=== PATIENT | female | born 1960 | race African-American/Black ===

== ENCOUNTER 2018-02-26 11:15 | Emergency (ER) | payer OTHER ==
--- OUTSIDE RECORDS SUMMARY | 2018-02-26 11:18 | XMS REPORT | Clinical Summary ---
:1960 Author Organization [facility] Address [address] [place] [address] Care Team Providers Name Role Phone Asked, No Pcp Primary Care Provider Unavailable Allergies Active Allergy Reactions Severity Noted Date Comments Penicillins Other (See Comments) Medium 10/14/2016 UTI and itching Current Medications Prescription Sig. Disp. Refills Start Date End Date Status CREON 24,000-76,000 Take by mouth 3 1 08/23/2016 Active -120,000 unit (three) times a capsule,delayed day. release(DR/EC) capsule lisinopril-hydrochlorot Take 1 tablet by 1 08/08/2016 Active hiazide mouth once daily. (PRINZIDE,ZESTORETIC) 10-12.5 mg per tablet LACTOBACILLUS Take by mouth. Active ACIDOPHILUS (PROBIOTIC ORAL) ibuprofen Take 1 tablet 30 tablet 0 01/30/2018 Active (ADVIL,MOTRIN) 600 MG (600 mg total) by 8 tablet mouth every 6 (six) hours as needed for mild pain for up to 30 days. methylPREDNISolone Take 1 tablet (4 21 tablet 0 02/01/2018 (MEDROL DOSEPAK) 4 mg mg total) by 8 tabletIndications: mouth See Admin Right wrist pain Instructions for 5 days. 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 Office Visit Orthopedic Surgery Miryam Wayne Cubital tunnel syndrome MD Ailin on right (Primary Dx) 02/01/2018 Office Visit Orthopedic Surgery Miryam Wayne Right wrist pain MD Ailin (Primary Dx) 01/30/2018 Emergency Emergency Medicine Sarah Garcia-Baldo Radiculopathy, unspecified spinal region (Primary Dx); MD Baldo Wrist pain, acute, right; Ulnar nerve entrapment at wrist, right after 02/25/2017 Family History Medical History Relation Name Comments No Known Problems Brother No Known Problems Father No Known Problems Maternal Aunt No Known Problems Maternal Grandfather No Known Problems Maternal Grandmother No Known Problems Maternal Uncle No Known Problems Mother No Known Problems Paternal Aunt No Known Problems Paternal Grandfather No Known Problems Paternal Grandmother No Known Problems Paternal Uncle No Known Problems Sister Relation Name Status Comments Brother Father Maternal Aunt Maternal Grandfather Maternal Grandmother Maternal Uncle Mother Paternal Aunt Paternal Grandfather Paternal Grandmother Paternal Uncle Sister Social History Tobacco Use Types Packs/Day Years Used Date Never Smoker Smokeless Tobacco: Never Used Alcohol Use Drinks/Week oz/Week Comments No Sex Assigned at Date Recorded Not on file Last Filed Vital Signs Vital Sign Reading Time Taken Blood Pressure 165/96 01/30/2018 1:38 PM CDT Pulse 61 01/30/2018 1:38 PM CDT Temperature 36.7 C (98.1 F) 01/30/2018 1:38 PM CDT Respiratory Rate 16 01/30/2018 1:38 PM CDT Oxygen Saturation 98% 01/30/2018 1:38 PM CDT Inhaled Oxygen Concentration - - Weight - - Height 154.9 cm (5' 1") 01/30/2018 1:38 PM CDT Body Mass Index - - Plan of Treatment Date Type Specialty Care Team Description 03/07/2018 Office Visit Orthopedic Surgery Miryam Wayne MD [address] [facility] [address] [place] [id number] Health Maintenance Due Date Last Done Comments CERVICAL CANCER SCREENING 11/30/1979 BREAST CANCER SCREENING 2008 COLON CANCER SCREENING 2008 SHINGRIX VACCINE (#1) 2008 INFLUENZA VACCINE 01/24/2018 Procedures Procedure Name Priority Date/Time Associated Comments Diagnosis AR INJECT CARPAL Routine 02/21/2018 2:45 Right carpal tunnel Results for this TUNNEL PM CDT syndrome procedure are in the results section. XR HAND 3+ VW RIGHT STAT 01/30/2018 3:39 Results for this PM CDT procedure are in the results section. SPLINT APPLICATION Routine 01/30/2018 2:25 Results for this PM CDT procedure are in the results section. after 02/25/2017 Results Hand/Upper Extremity Injection/Arthrocentesis (02/21/2018 2:45 PM) Narrative Performed At Miryam Wayne MD 02/23/20181:41 PM Hand/Upper Extremity Injection/Arthrocentesis Date/Time: 02/23/2018 1:38 PM Consent given by: patient Site marked: site marked Timeout: Immediately prior to procedure a time out was called to verify the correct patient, procedure, equipment, support services coordinator and site/side marked as required Supporting Documentation Indications: pain, therapeutic and diagnostic Procedure Details Condition: carpal tunnel syndrome Site: R carpal tunnel Right side: Needle size: 25 G Right carpal tunnel medications administered: 0.5 mL lidocaine 10 mg/mL (1 %); 1 mL triamcinolone acetonide 40 mg/mL Patient tolerance: patient tolerated the procedure well with no immediate complications Platelet Rich Plasma Used: no PRP Used Fluoroscopic Needle Guidance Used: no fluoroscopic needle guidance XR Hand 3+ Vw Right (01/30/2018 3:39 PM) Narrative Performed At EXAMINATION:XR HAND 3VW RIGHT [facility] CLINICAL HISTORY:hand pain ulnar nerve tingling COMPARISON:None. IMPRESSION: 1.3 view evaluation of the right hand demonstrates no evidence to suggest an acute fracture. Alignment is normal and articulation is intact. [facility]-[id number] Procedure Note Hm Interface, Radiology Results Incoming - 01/30/2018 3:51 PM CDT EXAMINATION: XR HAND 3 VW RIGHT CLINICAL HISTORY: hand pain ulnar nerve tingling COMPARISON: None. IMPRESSION: 1. 3 view evaluation of the right hand demonstrates no evidence to suggest an acute fracture. Alignment is normal and articulation is intact. [facility]-[id number] Performing Organization Address City/State/Zipcode Phone Number [facility] [address] [place] [address] SPLINT APPLICATION (01/30/2018 2:25 PM) Narrative Performed At [facility] Baldo Garcia MD 02/05/2018 11:42 PM Splint Application Performed by: ARLET GARCIAH BALDO Authorized by: [facility] Consent: Consent obtained:Verbal Consent given by:Patient Risks discussed:Discoloration, pain and swelling Pre-procedure details: Sensation:Unchanged Procedure details: Location:Wrist Wrist:R wrist Cast type:Short arm Splint type:Wrist after 02/25/2017 Insurance Payer Benefit Plan / Group Subscriber ID Type Phone Address BCBS BCBS CHOICE PPO/FEDERAL EMPL PPO xxxxxxxxxxxxxxx PPO Home: [facility] [phone] [place] [phone]
--- OUTSIDE RECORDS SUMMARY | 2018-02-26 11:18 | XMS REPORT | Clinical Summary ---
:1960 Author Organization [facility] Address [address] [place] [address] Phone Care Team Providers Name Role Phone Unavailable Primary Care Provider Unavailable Allergies No Known Allergies Current Medications Prescription Sig. Disp. Refills Start Date End Date Status lisinopril Take 10 mg Active (PRINIVIL,ZESTRIL) 10 MG by mouth tablet daily. carboxymethylcellulose Place 1 drop 1 Bottle 0 11/08/2017 Active (REFRESH PLUS) 0.5 % Dpet into both ophthalmic solution eyes 3 (three) times daily as needed. acetaminophen (TYLENOL) 500 Take 1 30 tablet 0 11/08/2017 MG tablet tablet (500 8 mg total) by mouth every 6 (six) hours as needed for Pain for up to 10 days. Active Problems Not on file Encounters Date Type Specialty Care Team Description 11/08/2017 Emergency Emergency Medicine Braden Roque, Sensation of foreign body MD in eye (Primary Dx);Redness of eye, right;Essential hypertension after 02/25/2017 Social History Tobacco Use Types Packs/Day Years Used Date Never Smoker Smokeless Tobacco: Never Used Sex Assigned at Date Recorded Not on file Last Filed Vital Signs Vital Sign Reading Time Taken Blood Pressure 168/105 11/08/2017 9:32 PM CDT Pulse 81 11/08/2017 9:32 PM CDT Temperature 37.3 C (99.2 F) 11/08/2017 9:32 PM CDT Respiratory Rate 18 11/08/2017 9:32 PM CDT Oxygen Saturation 97% 11/08/2017 9:32 PM CDT Inhaled Oxygen Concentration - - Weight 73 kg (161 lb) 11/08/2017 9:32 PM CDT Height 160 cm (5' 2.99") 11/08/2017 9:32 PM CDT Body Mass Index 28.53 11/08/2017 9:32 PM CDT Plan of Treatment Not on file Results Not on fileafter 02/25/2017
[2018-02-26] MEDS ORDERED: ONDANSETRON 4 MG/2 ML VIAL ONE ×2 (12:25→15:25)
[2018-02-26] MEDS ORDERED: FAMOTIDINE 20 MG/2 ML VIAL IV ONE (12:26)
[2018-02-26] MEDS ORDERED: NA CHLORIDE 0.9% 1,000 ML ONE (12:26)
[2018-02-26 12:33] LABS: Absolute Lymphocytes (CBC) 5.3 K/uL (0.7-4.9); Absolute Monocytes 0.8 K/uL (0.1-1.3); Absolute Neutrophil 8.9 K/uL (1.8-8.0); Basophils % 0.3 % (0-1.3); Eosinophils % 0.9 % (0-4.4); Hematocrit 42.7 % (36.0-45.0); MCH 29.6 pg (27.0-35.0); MCV 89.9 fL (80-100); MPV 8.5 fL (7.6-11.3); Monocytes % 5.4 % (3.3-12.3); RBC Red Blood Cell Count 4.75 M/uL (3.86-4.86)
[2018-02-26 12:33] LABS: Protime INR 1.04
[2018-02-26 12:43] LABS: ALT/SGPT 20 U/L (12-78); AST/SGOT 13 U/L (15-37); Albumin 3.9 g/dL (3.4-5.0); Alkaline Phosphatase 118 U/L (45-117); BUN Blood Urea Nitrogen 18 mg/dL (7-18); Bicarbonate 32 mmol/L (21-32); Bilirubin Direct 0.1 mg/dL (0-0.2); Bilirubin Total 0.6 mg/dL (0.2-1.0); CKMB Creatine Kinase MB 1.2 ng/mL (0.3-3.6); Creatine Phosphokinase 80 U/L (26-192); Glucose Level 116 mg/dL (74-106); Magnesium 2.5 mg/dL (1.8-2.4); NT PRO-BNP 14 pg/mL (<125); Potassium 3.2 mmol/L (3.5-5.1); Protein, Total 8.2 g/dL (6.4-8.2); Sodium Level 140 mmol/L (136-145); Troponin (Emerg Dept Use Only) < 0.02 ng/mL (0.0-0.045)
[2018-02-26 12:48] LABS: Urine Blood 2+ (NEG); Urine Glucose NEGATIVE (NEG); Urine Protein 1+ (NEG); Urine Specific Gravity >1.030 (1.005-1.030); Urine pH 5.5 (5.0-7.0)
--- NOTE | 2018-02-26 13:19 | RAD REPORT ---
EXAM DESCRIPTION: Michelle Single View02/26/2018 12:46 pm CLINICAL HISTORY: COUGH COMPARISON: No comparisons FINDINGS: The lungs appear clear of acute infiltrate. The heart is normal size Mild elevation right hemidiaphragm is seen.
--- NOTE | 2018-02-26 14:16 | RAD REPORT ---
EXAM DESCRIPTION: CT - Chest For Pe Angio - 02/26/2018 1:50 pm CLINICAL HISTORY: CHEST PAIN COMPARISON: None. TECHNIQUE: Dynamically enhanced axial 3 mm thick images of the chest were obtained during administra tion of <100> mL Isovue 370 IV contrast. Coronal and oblique reconstruction images were generated and reviewed. Exam utilizes a protocol for optimal evaluation of pulmonary arterial tree. Maximum intensity projections 3D imaging was utilized All CT scans are performed using dose optimization technique as appropriate and may include automated exposure control or mA/KV adjustment according to patient size. FINDINGS: A pulmonary embolus is not seen. A thoracic aortic aneurysm is not noted. A minimal coarctation of the proximal descending thoracic ao rta is noted. The heart is mildly enlarged A pleural effusion is not seen. A pericardial effusion is not seen. A lung consolidation is not present. The right hemidiaphragm is elevated. Mild right lower lobe atele ctasis is present Thyroid gland is enlarged containing bilateral nodules which narrow the trachea. IMPRESSION: Negative for a pulmonary embolism. Minimal coarctation the proximal descending aorta Multiple, bilateral thyroid nodules likely representing a multinodular goiter. Followup ultrasound in 1 year is recommended for re-evaluation
--- NOTE | 2018-02-26 14:22 | RAD REPORT ---
EXAM DESCRIPTION: CT - Abdomen Pelvis W Contrast - 02/26/2018 1:52 pm CLINICAL HISTORY: ABD PAIN COMPARISON: none TECHNIQUE: Computed axial tomography of the abdomen pelvis was obtained. 100 cc Isovue-300 was admin istered intravenously. Oral contrast was not requested which limits evaluation of bowel. All CT scans are performed using dose optimization technique as appropriate and may include automated exposure control or mA/KV adjustment according to patient size. FINDINGS: The liver, spleen, pancreas, adrenal and kidneys appear unremarkable. There is no evidence of diverticulitis. The appendix is normal The rectum is mildly distended with stool. A 25 millimeter left ovarian cyst is present. Lobulated masses extend from the uterus largest measuri ng 34 millimeters Mild diastases of the rectus abdominis muscles is present IMPRESSION: The rectum is mildly distended with stool 25 millimeter left ovarian cyst likely is benign Lobulated mass is abutting the uterus probably representing subserosal fibroids. Follow-up ultrasound in couple of months is recommended to assess stability of the suspected ovarian cysts and these prob able fibroids
--- NOTE | 2018-02-26 14:41 | RAD REPORT ---
EXAM DESCRIPTION: CT - Head Brain Wo Cont - 02/26/2018 2:18 pm CLINICAL HISTORY: DIZZINESS< COMPARISON: None TECHNIQUE: Computed axial tomography of the head was obtained. IV contrast was administered during C T chest and abdomen earlier on the same date. All CT scans are performed using dose optimization technique as appropriate and may include automated exposure control or mA/KV adjustment according to patient size. FINDINGS: Detection of a bleed is somewhat limited due to the administration of IV contrast. It blee d however is not seen. The ventricles are normal in caliber. No extra-axial fluid collection is noted. Fluid within the sinuses/ mastoids is not seen. IMPRESSION: No acute intracranial abnormality is seen. If patient's symptoms persist MRI of the bra in would be recommended.
--- NOTE | 2018-02-26 15:02 | ER ---
Nurse's Notes [facility] Name: Tarsha Coy Age: 57 yrs Sex: Female : 1960 Arrival Date: 02/26/2018 Time: 11:16 Bed 20 Private MD: None, None Diagnosis: Dizziness and giddiness;Cystitis;Hypokalemia;Nausea and vomiting;Elevated white blood cell count;Nontoxic diffuse goiter;Leiomyoma of uterus Presentation: 02/26 11:30 Presenting complaint: Patient states: i feel dizzy that started yesterday, denies fall; hj reports nausea; reports headache, denies fever and chills;. Transition of care: patient was not received from another setting of care. Onset of symptoms was February 26, 2018. Risk Assessment: Do you want to hurt yourself or someone else? Patient reports no desire to harm self or others. Initial Sepsis Screen: Does the patient meet any 2 criteria? No. Patient's initial sepsis screen is negative. Does the patient have a suspected source of infection? No. Patient's initial sepsis screen is negative. Care prior to arrival: None. 11:30 Method Of Arrival: Ambulatory 11:30 Acuity: IKE 3 Triage Assessment: 11:32 General: Appears in no apparent distress. uncomfortable, Behavior is calm, cooperative, hj appropriate for age. Pain: Complains of pain in head. GI: Reports nausea. Historical: - Allergies: 11:32 No Known Allergies; hj - Home Meds: 11:32 lisinopril-hydrochlorothiazide 10-12.5 mg oral tab 1 tab once daily [Active]; - PMHx: 11:32 Hypertension; carpal tunnel; - PSHx: 11:32 Knee surgery; hj - Immunization history:: Adult Immunizations unknown. - Social history:: Smoking status: Patient/guardian denies using tobacco, Patient/guardian denies using alcohol. - Ebola Screening: : Patient negative for fever greater than or equal to 101.5 degrees Fahrenheit, and additional compatible Ebola Virus Disease symptoms Patient denies exposure to infectious person Patient denies travel to an Ebola-affected area in the 21 days before illness onset. - Family history:: not pertinent. Screenin:33 Abuse screen: Denies threats or abuse. Denies injuries from another. Nutritional hj screening: No deficits noted. Tuberculosis screening: No symptoms or risk factors identified. Fall Risk None identified. Assessment: 11:33 GI: Abdomen is non-distended. hj 12:00 General: Appears in no apparent distress. Behavior is calm, cooperative. Pain: iw Complains of pain in left upper quadrant and right upper quadrant and epigastric area. Neuro: Level of Consciousness is awake, alert, obeys commands, Oriented to person, place, time, situation, Reports dizziness. Cardiovascular: Capillary refill < 3 seconds in bilateral fingers Patient's skin is warm and dry. Respiratory: Respiratory effort is even, unlabored, Respiratory pattern is regular, symmetrical. GI: Reports nausea. Derm: Skin is intact, is healthy with good turgor. Musculoskeletal: Range of motion: intact in all extremities. 12:40 Reassessment: Patient appears in no apparent distress at this time. pt reports iw dizziness and mild abdominal pain. Vital Signs: 11:33 BP 119 / 76; Pulse 72; Resp 18; Temp 97.5(TE); Pulse Ox 98% on R/A; Weight 72.57 kg; hj Height 5 ft. 1 in. (154.94 cm); Pain 7/10; 12:40 BP 139 / 87; Pulse 84; Resp 16; Pulse Ox 97% on R/A; iw 11:33 Body Mass Index 30.23 (72.57 kg, 154.94 cm) ED Course: 11:16 Patient arrived in ED. sb2 11:17 None, None is Private Physician. sb2 11:31 Triage completed. hj 11:33 Arm band placed on left wrist. hj 11:33 Patient has correct armband on for positive identification. Bed in low position. Call light in reach. Side rails up X 1. 11:38 Lora Parra, RN is Primary Nurse. iw 11:43 Gucci Garg MD is Attending Physician. suhail 12:26 Initial lab(s) drawn, by pa, sent to lab. Urine collected: clean catch specimen, clear, 5 EKG done, by ED staff, reviewed by Gucci Garg MD. Inserted saline lock: 20 gauge in right antecubital area, using aseptic technique. Blood collected. 12:27 Lipase Sent. 5 12:27 Basic Metabolic Panel Sent. 5 12:27 CBC with Diff Sent. 5 12:27 Ckmb Sent. mh5 12:27 CPK Sent. mh5 12:28 LFT's Sent. mh5 12:28 Magnesium Sent. mh5 12:28 NT PRO-BNP Sent. mh5 12:28 PT-INR Sent. mh5 12:28 Ptt, Activated Sent. mh5 12:28 Troponin (emerg Dept Use Only) Sent. mh5 12:29 Lipase Sent. mh5 12:47 XRAY Chest (1 view) In Process Unspecified. EDMS 12:47 X-ray completed. Portable x-ray completed in exam room. Patient tolerated procedure la2 well. 13:30 Notified ED physician of a critical lab result(s). elevated D Dimer. 13:47 CT completed. Patient tolerated procedure well. Patient moved to CT via stretcher. Patient moved back from CT. 13:51 CT Chest For PE Angio In Process Unspecified. EDMS 13:51 CT Abd/Pelvis - W/Contrast: iv only, no oral In Process Unspecified. EDMS 14:01 Urine Culture Sent. mh5 14:19 CT Head Brain wo Cont In Process Unspecified. EDMS Administered Medications: 12:26 Drug: NS 0.9% 1000 ml Route: IV; Rate: 1 bolus; Site: right antecubital; iw 12:26 Drug: Pepcid 20 mg Route: IVP; Site: right antecubital; iw 12:45 Follow up: Response: No adverse reaction iw 12:27 Drug: Zofran 4 mg Route: IVP; Site: right antecubital; iw 12:45 Follow up: Response: No adverse reaction iw 15:18 Drug: Rocephin - (cefTRIAXone) 1 grams Route: IVPB; Infused Over: 30 mins; Site: right iw antecubital; 15:25 Follow up: IV Status: Completed infusion iw 15:20 Drug: Potassium Effervescent Tablet 25 mEq Route: PO; iw 15:30 Follow up: Response: No adverse reaction iw 15:22 Drug: Zofran 4 mg Route: IVP; Site: right antecubital; iw 15:35 Follow up: Response: No adverse reaction Outcome: 15:02 Discharge ordered by MD. jang 15:39 Patient left the ED. iw Addendum: 03/04/2018 09:58 Addendum: Culture Results: Positive urine culture. No further action required. Bacteria s s is resistant to, has intermediate sensitivity, or is not tested against prescribed antibiotics. Report given to KANDY for further evaluation and then to light rail signal technician for follow up with patient. Phone call Attempt #1 wrong number Certified letter sent to listed address for patient. Signatures: Dispatcher [employer] EDGucci Vale MD MD cha Jones, Susan sj Williams, Irene, Nilda Palmer RN, RN RN ss Tad Stokes RN RN hj Martinez, Maria [facility] Alea Gold Roslyn Hahn 2 Corrections: (The following items were deleted from the chart) 02/26 11:35 11:33 Pulse 72bpm; Resp 18bpm; Pulse Ox 98% RA; Temp 97.5F Temporal; 72.57 kg; Height 5 hj ft. 1 in.; BMI: 30.2; Pain 7/10; hj
--- NOTE | 2018-02-26 15:02 | EDPHYS ---
Physician Documentation [facility] Name: Tarsha Coy Age: 57 yrs Sex: Female : 1960 Arrival Date: 02/26/2018 Time: 11:16 Bed 20 Private MD: None, None ED Physician Gucci Garg HPI: 02/26 12:16 This 57 yrs old Black Female presents to ER via Ambulatory with complaints of suhail Dizziness, Nausea. 12:16 The patient presents with dizziness, generalized weakness. Onset: The symptoms/episode suhail began/occurred yesterday. 12:17 The patient presents with abdominal pain in the epigastric area, in the upper abdomen. suhail Onset: The symptoms/episode began/occurred yesterday. The patient presents to the emergency department with nausea, vomiting, abdominal pain, of the epigastric area, right upper quadrant and left upper quadrant. Possible causes: unknown. Modifying factors: The symptoms are alleviated by nothing, the symptoms are aggravated by nothing. Historical: - Allergies: 11:32 No Known Allergies; hj - Home Meds: 11:32 lisinopril-hydrochlorothiazide 10-12.5 mg oral tab 1 tab once daily [Active]; - PMHx: 11:32 Hypertension; carpal tunnel; - PSHx: 11:32 Knee surgery; hj - Immunization history:: Adult Immunizations unknown. - Social history:: Smoking status: Patient/guardian denies using tobacco, Patient/guardian denies using alcohol. - Ebola Screening: : Patient negative for fever greater than or equal to 101.5 degrees Fahrenheit, and additional compatible Ebola Virus Disease symptoms Patient denies exposure to infectious person Patient denies travel to an Ebola-affected area in the 21 days before illness onset. - Family history:: not pertinent. ROS: 12:17 Constitutional: Negative for fever, chills, and weight loss, Eyes: Negative for injury, suhail pain, redness, and discharge, ENT: Negative for injury, pain, and discharge, Neck: Negative for injury, pain, and swelling, Cardiovascular: Negative for chest pain, palpitations, and edema, Respiratory: Negative for shortness of breath, cough, wheezing, and pleuritic chest pain, Back: Negative for injury and pain, : Negative for injury, bleeding, discharge, and swelling, MS/Extremity: Negative for injury and deformity, Skin: Negative for injury, rash, and discoloration, Psych: Negative for depression, anxiety, suicide ideation, homicidal ideation, and hallucinations, Allergy/Immunology: Negative for hives, rash, and allergies, Endocrine: Negative for neck swelling, polydipsia, polyuria, polyphagia, and marked weight changes. 12:17 Abdomen/GI: Positive for abdominal pain, nausea and vomiting. 12:17 Neuro: Positive for dizziness, weakness. Exam: 12:17 Constitutional: This is a well developed, well nourished patient who is awake, alert, suhail and in no acute distress. Head/Face: Normocephalic, atraumatic. Eyes: Pupils equal round and reactive to light, extra-ocular motions intact. Lids and lashes normal. Conjunctiva and sclera are non-icteric and not injected. Cornea within normal limits. Periorbital areas with no swelling, redness, or edema. ENT: Nares patent. No nasal discharge, no septal abnormalities noted. Tympanic membranes are normal and external auditory canals are clear. Oropharynx with no redness, swelling, or masses, exudates, or evidence of obstruction, uvula midline. Mucous membranes moist. Neck: Trachea midline, no thyromegaly or masses palpated, and no cervical lymphadenopathy. Supple, full range of motion without nuchal rigidity, or vertebral point tenderness. No Meningismus. Chest/axilla: Normal chest wall appearance and motion. Nontender with no deformity. No lesions are appreciated. Cardiovascular: Regular rate and rhythm with a normal S1 and S2. No gallops, murmurs, or rubs. Normal PMI, no JVD. No pulse deficits. Respiratory: Lungs have equal breath sounds bilaterally, clear to auscultation and percussion. No rales, rhonchi or wheezes noted. No increased work of breathing, no retractions or nasal flaring. Back: No spinal tenderness. No costovertebral tenderness. Full range of motion. Female : Normal external genitalia. Skin: Warm, dry with normal turgor. Normal color with no rashes, no lesions, and no evidence of cellulitis. MS/ Extremity: Pulses equal, no cyanosis. Neurovascular intact. Full, normal range of motion. Neuro: Awake and alert, GCS 15, oriented to person, place, time, and situation. Cranial nerves II-XII grossly intact. Motor strength 5/5 in all extremities. Sensory grossly intact. Cerebellar exam normal. Normal gait. Psych: Awake, alert, with orientation to person, place and time. Behavior, mood, and affect are within normal limits. 12:17 Abdomen/GI: Inspection: distension, Bowel sounds: normal, Palpation: mild abdominal tenderness, in the epigastric area, right upper quadrant and left upper quadrant. 13:13 Musculoskeletal/extremity: DVT Exam: No signs of deep vein thrombosis. no pain, no suhail swelling, no tenderness, negative Homans' sign noted on exam, no appreciated bluish discoloration, no erythema, no increased warmth. Vital Signs: 11:33 BP 119 / 76; Pulse 72; Resp 18; Temp 97.5(TE); Pulse Ox 98% on R/A; Weight 72.57 kg; hj Height 5 ft. 1 in. (154.94 cm); Pain 7/10; 12:40 BP 139 / 87; Pulse 84; Resp 16; Pulse Ox 97% on R/A; iw 11:33 Body Mass Index 30.23 (72.57 kg, 154.94 cm) MDM: 11:43 Patient medically screened. [facility] 12:19 Data reviewed: vital signs, nurses notes, lab test result(s), EKG, radiologic studies, [facility] plain films. 02/26 11:43 Order name: Basic Metabolic Panel; Complete Time: 13:10 [facility] 02/26 11:43 Order name: CBC with Diff; Complete Time: 13:10 [facility] 02/26 11:43 Order name: Ckmb; Complete Time: 13:10 [facility] 02/26 11:43 Order name: CPK; Complete Time: 13:10 [facility] 02/26 11:43 Order name: LFT's; Complete Time: 13:10 [facility] 02/26 11:43 Order name: Magnesium; Complete Time: 13:10 [facility] 02/26 11:43 Order name: NT PRO-BNP; Complete Time: 13:10 [facility] 02/26 11:43 Order name: PT-INR; Complete Time: 13:10 [facility] 02/26 11:43 Order name: Ptt, Activated; Complete Time: 13:10 [facility] 02/26 11:43 Order name: Troponin (emerg Dept Use Only); Complete Time: 13:10 [facility] 02/26 12:16 Order name: Lipase; Complete Time: 13:10 [facility] 02/26 12:29 Order name: Urine Dipstick--Ancillary (enter results); Complete Time: 13:10 em1 02/26 13:12 Order name: D-Dimer; Complete Time: 13:48 [facility] 02/26 13:50 Order name: Urine Culture [facility] 02/26 11:43 Order name: XRAY Chest (1 view); Complete Time: 13:48 [facility] 02/26 13:31 Order name: CT Chest For PE Angio; Complete Time: 14:59 [facility] 02/26 13:31 Order name: CT Abd/Pelvis - W/Contrast: iv only, no oral; Complete Time: 14:59 [facility] 02/26 13:54 Order name: CT Head Brain wo Cont; Complete Time: 14:59 [facility] 02/26 11:43 Order name: EKG; Complete Time: 11:44 [facility] 02/26 11:43 Order name: Cardiac monitoring; Complete Time: 12:28 [facility] 02/26 11:43 Order name: EKG - Nurse/Tech; Complete Time: 12:28 [facility] 02/26 11:43 Order name: IV Saline Lock; Complete Time: 12:28 [facility] 02/26 11:43 Order name: Labs collected and sent; Complete Time: 12:28 [facility] 02/26 11:43 Order name: O2 Per Protocol; Complete Time: 15:35 [facility] 02/26 11:43 Order name: O2 Sat Monitoring; Complete Time: 15:35 [facility] 02/26 11:43 Order name: Urine Dipstick-Ancillary (obtain specimen); Complete Time: 12:27 [facility] Administered Medications: 12:26 Drug: NS 0.9% 1000 ml Route: IV; Rate: 1 bolus; Site: right antecubital; iw 12:26 Drug: Pepcid 20 mg Route: IVP; Site: right antecubital; iw 12:45 Follow up: Response: No adverse reaction iw 12:27 Drug: Zofran 4 mg Route: IVP; Site: right antecubital; iw 12:45 Follow up: Response: No adverse reaction iw 15:18 Drug: Rocephin - (cefTRIAXone) 1 grams Route: IVPB; Infused Over: 30 mins; Site: right iw antecubital; 15:25 Follow up: IV Status: Completed infusion iw 15:20 Drug: Potassium Effervescent Tablet 25 mEq Route: PO; iw 15:30 Follow up: Response: No adverse reaction iw 15:22 Drug: Zofran 4 mg Route: IVP; Site: right antecubital; iw 15:35 Follow up: Response: No adverse reaction iw Disposition: 02/26/18 15:02 Discharged to Home. Impression: Dizziness and giddiness, Cystitis, Hypokalemia, Nausea and vomiting, Elevated white blood cell count, Nontoxic diffuse goiter, Leiomyoma of uterus. - Condition is Fair. - Discharge Instructions: Potassium Content of Foods, Dizziness, Dysuria, Nausea and Vomiting, Adult, [id number], Hypokalemia, Dizziness, [id number]. - Prescriptions for Zofran 4 mg Oral Tablet - take 1 tablet by ORAL route every 12 hours As needed; 20 tablet. Cipro 500 mg Oral Tablet - take 1 tablet by ORAL route every 12 hours for 7 days; 14 tablet. - Medication Reconciliation Form, Thank You Letter, Antibiotic Education, Prescription Opioid Use form. - Follow up: Private Physician; When: 2 - 3 days; Reason: Recheck today's complaints, Continuance of care, Re-evaluation by your physician. - Problem is new. - Symptoms have improved. Signatures: Dispatcher [employer] EDMS Gucci Garg MD MD cha Williams, Irene, RN RN iw Joaquin, Henry, RN RN Corrections: (The following items were deleted from the chart) 15:39 15:02 02/26/2018 15:02 Discharged to Home. Impression: Dizziness and giddiness; iw Cystitis; Hypokalemia; Nausea and vomiting; Elevated white blood cell count; Nontoxic diffuse goiter; Leiomyoma of uterus. Condition is Fair. Discharge Instructions: Potassium Content of Foods, Dizziness, Dysuria, Nausea and Vomiting, Adult, [id number], Hypokalemia, Dizziness, [id number]. Prescriptions for Zofran 4 mg Oral Tablet - take 1 tablet by ORAL route every 12 hours As needed; 20 tablet, Cipro 500 mg Oral Tablet - take 1 tablet by ORAL route every 12 hours for 7 days; 14 tablet. and Forms are Medication Reconciliation Form, Thank You Letter, Antibiotic Education, Prescription Opioid Use. Follow up: Private Physician; When: 2 - 3 days; Reason: Recheck today's complaints, Continuance of care, Re-evaluation by your physician. Problem is new. Symptoms have improved. suhail
[2018-02-26] MEDS ORDERED: CEFTRIAXONE/SWI 1gm 1 GM/10 ML SYR ONE (15:14)
[2018-02-26] MEDS ORDERED: POTASSIUM 25 MEQ EFFERV TAB ONE (15:14)
--- NOTE | 2018-02-27 12:22 | EKG ---
Test Date: 2018-02-26 Test Time: 12:04:44 [employer] Supervisor: NARESH MEASUREMENT RESULTS: Intervals: Rate: 78 MN: 130 QRSD: 92 QT: 360 QTc: 410 [place]: P: 44 MN: 130 QRS: -2 T: 199 INTERPRETIVE STATEMENTS: Normal sinus rhythm Left ventricular hypertrophy with repolarization abnormality Abnormal ECG No previous ECG available for comparison Electronically Signed On 02-27-18 12:19:22 CDT by Edgar Hauser
== END 2018-02-26 15:39 | disposition home or self-care (01) ==
LOC: ER 11:15
DX: R42 Dizziness and giddiness (principal); R11.2 Nausea with vomiting, unspecified; N30.00 Acute cystitis without hematuria; R10.13 Epigastric pain; I10 Essential (primary) hypertension; E87.6 Hypokalemia; E04.0 Nontoxic diffuse goiter; D25.9 Leiomyoma of uterus, unspecified; D72.829 Elevated white blood cell count, unspecified
CPT/HCPCS: 36415; 70450; 71045; 71275; 74177; 80048; 80076; 81003; 82550; 82553; 83690; 83735; 83880; 84484; 85025; 85379; 85610; 85730; 87077; 87086; 87088; 87186; 93005; 96374; 96375; 99284; J0696; J2405; J7030; Q9967

== ENCOUNTER 2018-09-12 02:19 | Emergency (ER) | payer BC, SELFPAY ==
--- OUTSIDE RECORDS SUMMARY | 2018-09-12 02:22 | XMS REPORT | Clinical Summary ---
:1960 Author Organization [facility] Address [address] [place] [address] Care Team Providers Name Role Phone Charo Muro MD Primary Care Provider Allergies Active Allergy Reactions Severity Noted Date Comments Penicillins Other (See Comments) Medium 10/14/2016 UTI and itching - states she has had pcn since dx w/o incident Medications Medication Sig Dispensed Refills Start End Status Date Date lisinopril-hydrochloro Take 1 tablet by 1 Active thiazide mouth once 7 (PRINZIDE,ZESTORETIC) daily. 10-12.5 mg per tablet CREON 24,000-76,000 Take by mouth 3 Discontinued -120,000 unit (three) times a 7 018 capsule,delayed day. release(DR/EC) capsule LACTOBACILLUS Take by mouth. 0 Discontinued ACIDOPHILUS (PROBIOTIC 018 ORAL) ibuprofen Take 1 tablet 30 tablet 0 (ADVIL,MOTRIN) 600 MG (600 mg total) 8 018 tablet by mouth every 6 (six) hours as needed for mild pain for up to 30 days. methylPREDNISolone Take 1 tablet (4 21 tablet 0 (MEDROL DOSEPAK) 4 mg mg total) by 8 018 tabletIndications: mouth See Admin Right wrist pain Instructions for 5 days. Use as directed by package instructions methylPREDNISolone Take 1 tablet (4 21 tablet 0 (MEDROL DOSEPAK) 4 mg mg total) by 8 018 tablet mouth See Admin Instructions for 5 days. Use as directed by package instructions Active Problems Problem Noted Date Trigger finger, right little finger 04/04/2018 Trigger finger, right ring finger 04/04/2018 Right carpal tunnel syndrome 02/23/2018 Encounters Date Type Specialty Care Team Description 09/10/2018 Emergency Emergency Medicine Sarah Cuellar-Jessica Atypical chest pain (Primary Dx); MD Jessica Thyroid goiter 09/10/2018 Office Visit Orthopedic Surgery Miryam Wayne Right carpal tunnel syndrome (Primary Dx); MD Ailin Morning joint stiffness of right hand; Swelling of right hand; Trigger finger, right little finger; Trigger finger, right ring finger 07/23/2018 Office Visit Orthopedic Surgery Miryam Wayne Carpal tunnel syndrome, right upper limb (Primary Dx); MD Ailin Right carpal tunnel syndrome; Trigger finger, right little finger; Trigger finger, right ring finger 06/11/2018 Office Visit Orthopedic Surgery Miryam Wayne Trigger finger, right little finger (Primary Dx); MD Ailin Trigger finger, right ring finger; Right carpal tunnel syndrome 05/14/2018 Office Visit Orthopedic Surgery Miryam Wayne Carpal tunnel syndrome of right wrist (Primary Dx); MD Ailin Trigger little finger of right hand 05/14/2018 Orders Only Orthopedic Surgery Kelly Bender MA 05/04/2018 Surgery Orthopedic Surgery Miryam Wayne RELEASE, AJAYAL MD Ailin TUNNEL 05/04/2018 Anesthesia Event Orthopedic Surgery Hali Harris APRN 05/04/2018 Hospital Encounter Orthopedic Surgery Miryam Wayne MD 05/02/2018 Pre-Admit Testing Pre-Admission Miryam Wayne Preop testing Appointment Testing MD Ailin (Primary Dx) 04/03/2018 Office Visit Orthopedic Surgery Miryam Wayne Right carpal tunnel syndrome (Primary Dx); MD Ailin Trigger finger, right little finger; Trigger finger, right ring finger 03/07/2018 Office Visit Orthopedic Surgery Miryam Wayne Carpal tunnel syndrome of right wrist (Primary Dx); MD Ailin Trigger little finger of right hand 02/21/2018 Office Visit Orthopedic Surgery Miryam Wayne Right carpal tunnel MD Ailin syndrome (Primary Dx) 02/08/2018 Office Visit Orthopedic Surgery Miryam Wayne Cubital tunnel MD Ailin syndrome on right (Primary Dx) 02/01/2018 Office Visit Orthopedic Surgery Miryam Wayne Right wrist pain MD Ailin (Primary Dx) 01/30/2018 Emergency Emergency Medicine Sarah CuellarJessica Radiculopathy, unspecified spinal region (Primary Dx); MD Jessica Wrist pain, acute, right; Ulnar nerve entrapment at wrist, right after 09/11/2017 Family History Medical History Relation Name Comments [...] Assigned at Date Recorded Not on file Job Start Date Occupation Industry Not on file Not on file Not on file Travel History Travel Start Travel End No recent travel history available. Last Filed Vital Signs Vital Sign Reading Time Taken Blood Pressure 120/79 09/10/2018 1:22 PM CDT Pulse 81 09/10/2018 1:22 PM CDT Temperature 36.6 C (97.8 F) 09/10/2018 1:22 PM CDT Respiratory Rate 19 09/10/2018 1:22 PM CDT Oxygen Saturation 96% 09/10/2018 1:22 PM CDT Inhaled Oxygen Concentration - - Weight 76 kg (167 lb 8 oz) 05/04/2018 7:29 AM PATIENT SUPPORT SPECIALIST Height 154.9 cm (5' 1") 09/10/2018 1:21 PM CDT Body Mass Index 31.65 05/04/2018 7:29 AM PATIENT SUPPORT SPECIALIST Plan of Treatment Health Maintenance Due Date Last Done Comments CERVICAL CANCER SCREENING 11/30/1979 BREAST CANCER SCREENING 2008 COLON CANCER SCREENING 2008 SHINGLES VACCINES (#1) 2008 INFLUENZA VACCINE 01/24/2018 Procedures Procedure Name Priority Date/Time Associated Comments Diagnosis CT ANGIOGRAM PE CHEST STAT 09/10/2018 5:48 Results for this PM CDT procedure are in the results section. T4, FREE STAT 09/10/2018 5:25 Results for this PM CDT procedure are in the results section. THYROID STIMULATING STAT 09/10/2018 5:25 Results for this HORMONE PM CDT procedure are in the results section. TROPONIN STAT 09/10/2018 5:25 Results for this PM CDT procedure are in the results section. D-DIMER STAT 09/10/2018 5:25 Results for this PM CDT procedure are in the results section. XR CHEST 2 VW STAT 09/10/2018 2:02 Results for this PM CDT procedure are in the results section. ESTIMATED GFR STAT 09/10/2018 1:56 Results for this PM CDT procedure are in the results section. B NATRIURETIC PEPTIDE STAT 09/10/2018 1:56 Results for this PM CDT procedure are in the results section. TROPONIN STAT 09/10/2018 1:56 Results for this PM CDT procedure are in the results section. COMPREHENSIVE STAT 09/10/2018 1:56 Results for this METABOLIC PANEL PM CDT procedure are in the results section. HC COMPLETE BLD COUNT STAT 09/10/2018 1:56 Results for this W/AUTO DIFF PM CDT procedure are in the results section. ECG 12-LEAD STAT 09/10/2018 1:27 Results for this PM CDT procedure are in the results section. RELEASE, CARPAL TUNNEL 05/04/2018 8:45 Acute carpal tunnel AM PATIENT SUPPORT SPECIALIST syndrome of right wrist ANESTHESIA INTUBATION Routine 05/04/2018 8:32 AM PATIENT SUPPORT SPECIALIST Procedure Note - Christophe Rose CRNA - 05/04/2018 8:32 AM PATIENT SUPPORT SPECIALIST Airway Performed by: CHRSITOPHE ROSE Authorized by: HELEN NGUYEN Location: OR Resident/RESIDENT CARE TECHNICIAN/AA: CHRISTOPHE ROSE Preoxygenated with 100% O2: Yes Mask Ventilation: Easy mask Final Airway Type: Supraglottic airway Final LMA: I-Gel LMA Size: 4 Number of Attempts at Approach: 1 Eyes taped on LOC, Easy BMV, iGel #4 placed easily, Oral mucosa and dentition intact ECG PRE/POST OP Routine 05/02/2018 10:20 AM Preop testing Results for this PATIENT SUPPORT SPECIALIST procedure are in the results section. ESTIMATED GFR Routine 05/02/2018 10:18 AM Results for this PATIENT SUPPORT SPECIALIST procedure are in the results section. BASIC METABOLIC PANEL Routine 05/02/2018 10:18 AM Preop testing Results for this PATIENT SUPPORT SPECIALIST procedure are in the results section. RI INJECT CARPAL Routine 02/21/2018 2:45 PM Right carpal Results for this TUNNEL CDT tunnel syndrome procedure are in the results section. XR HAND 3+ VW RIGHT STAT 01/30/2018 3:39 PM Results for this CDT procedure are in the results section. SPLINT APPLICATION Routine 01/30/2018 2:25 PM Results for this CDT procedure are in the results section. after 09/11/[address] Angiogram Pe Chest (09/10/2018 5:48 PM CDT) Narrative Performed At EXAM: CT ANGIOGRAM PE CHEST [facility] CLINICAL HISTORY: PE suspectedhigh pretest prob TECHNIQUE:CT angiographic images of the chest were obtained during intravenous administration of iodinated contrast.Computerized, reformatted images and 3-D MIP images were obtained and archived (per CT pulmonary embolism protocol). CT scans are performed using radiation dose reduction techniques (iterative reconstruction and/or automated exposure control). Technical factors are evaluated and adjusted to ensure appropriate moderation of exposure. Automated dose management technology is applied to adjust radiation exposure while achieving a diagnostic quality image. COMPARISON:Chest x-ray, same day FINDINGS: Pulmonary arteries: Diagnostic quality of study is adequate for the evaluation of pulmonary embolism. There is no evidence of acute or chronic pulmonary embolism. No evidence of right heart strain. The main pulmonary artery is within normal limits of size. Aorta:No aneurysm. Mediastinum and esa:No pathological adenopathy in the esa, axillary, or mediastinum.No mediastinal mass or hematoma. Heart and pericardium:Heart size is normal.No pericardial effusion. Lungs:Clear airways. Scattered atelectatic changes, particularly within the bilateral lower lobes. No focal dilatation. No suspicious pulmonary nodule. No pleural effusion, pleural thickening, or pneumothorax. Other: Thyroid gland is enlarged, suggesting a multinodular goiter. Esophagus is patent. Chest wall:Unremarkable. Upper abdomen:No focal abnormality detected with limited evaluation. Bones:No evidence for acute osseous injury. IMPRESSION: 1.Negative CTA examination for pulmonary embolism. 2.Thyroid gland is enlarged, suggesting a multinodular goiter. Correlate findings with prior thyroid ultrasound if available. If not available, nonemergent sonographic evaluation of the thyroid is recommended. [facility]-[id number] Procedure Note Interface, Radiology Results Incoming - 09/10/2018 6:14 PM CDT EXAM: CT ANGIOGRAM PE CHEST CLINICAL HISTORY: PE suspected high pretest prob TECHNIQUE: CT angiographic images of the chest were obtained during intravenous administration of iodinated contrast. Computerized, reformatted images and 3-D MIP images were obtained and archived (per CT pulmonary embolism protocol). CT scans are performed using radiation dose reduction techniques (iterative reconstruction and/or automated exposure control). Technical factors are evaluated and adjusted to ensure appropriate moderation of exposure. Automated dose management technology is applied to adjust radiation exposure while achieving a diagnostic quality image. COMPARISON: Chest x-ray, same day FINDINGS: Pulmonary arteries: Diagnostic quality of study is adequate for the evaluation of pulmonary embolism. There is no evidence of acute or chronic pulmonary embolism. No evidence of right heart strain. The main pulmonary artery is within normal limits of size. Aorta: No aneurysm. Mediastinum and esa: No pathological adenopathy in the esa, axillary, or mediastinum. No mediastinal mass or hematoma. Heart and pericardium: Heart size is normal. No pericardial effusion. Lungs: Clear airways. Scattered atelectatic changes, particularly within the bilateral lower lobes. No focal dilatation. No suspicious pulmonary nodule. No pleural effusion, pleural thickening, or pneumothorax. Other: Thyroid gland is enlarged, suggesting a multinodular goiter. Esophagus is patent. Chest wall: Unremarkable. Upper abdomen: No focal abnormality detected with limited evaluation. Bones: No evidence for acute osseous injury. IMPRESSION: 1. Negative CTA examination for pulmonary embolism. 2. Thyroid gland is enlarged, suggesting a multinodular goiter. Correlate findings with prior thyroid ultrasound if available. If not available, nonemergent sonographic evaluation of the thyroid is recommended. [facility]-[id number] Performing Organization Address City/State/Zipcode Phone Number [facility] [address] [place] [address] Troponin (09/10/2018 5:25 PM CDT)Only the most recent of2 resultswithin the time period is included. Troponin <0.30 0.00 - 0.30 ng/mL [facility] Comment: 0.30 - 1.49 ng/mlMay indicate increased risk of acute coronary syndrome. >=1.5 ng/mlConsistent with acute myocardial infarction. The diagnostic value of a single normal or non-diagnostic result is questionable.Serial samples at 2-6 hour intervals are required to rule out acute myocardial injury. Specimen Plasma specimen Performing Organization Address [facility] Cliniccode Phone Number [facility] DEPARTMENT OF PATHOLOGY AND [address] [place] [phone] D-dimer (09/10/2018 5:25 PM CDT) D-dimer 0.55 (H) 0.00 - 0.40 ug/mL FEU [facility] Comment: HOSPITAL Units are ug/ml Fibrinogen Equivalent Unit. When combined with low clinical probability, D-dimer results of less than 0.5 ug/ml FEU have a good negativepredictive value in excluding PE or DVT. For D-dimer results greater than 0.5ug/ml FEU further testing is indicated if PE or DVT is suspectedclinically. Elevated D-dimer results have been reported in DVT, PE, and DIC cases and may indicate the presence of a clot. D-dimer results may be elevated due to old age, , inflammatory diseases, trauma, post-operative states, sepsis, and malignancies. Specimen Blood Performing Organization Address [facility] Cliniccotx Phone Number [facility] DEPARTMENT OF PATHOLOGY AND [address] [place] [phone] Thyroid stimulating hormone (09/10/2018 5:25 PM CDT) TSH 1.01 0.27 - 4.20 uIU/mL [facility] Specimen Plasma specimen Performing Organization Address [facility] Cliniccode Phone Number [facility] DEPARTMENT OF PATHOLOGY AND [address] [place] [phone] T4, free (09/10/2018 5:25 PM CDT) T4, free 1.0 0.9 - 1.7 ng/dL [facility] Specimen Plasma specimen Performing Organization Address [facility] Clinic[facility] Phone Number [facility] DEPARTMENT OF PATHOLOGY AND [address] [place] [phone] XR Chest 2 Vw (09/10/2018 2:02 PM CDT) Narrative Performed At EXAMINATION:XR CHEST 2 VW [facility] CLINICAL HISTORY:Chest pain or SOBpleurisy or effusion suspected COMPARISON:None IMPRESSION: Cardiovascular silhouette is prominent. Some minimal atelectatic changes present in the lung bases in the right lung is hypoventilated. The lungs otherwise are clear. The brachiocephalic vessels are tortuous, and thyroid enlargement may be present. [facility]-[id number] Procedure Note Hm Interface, Radiology Results Incoming - 09/10/2018 2:07 PM CDT EXAMINATION: XR CHEST 2 VW CLINICAL HISTORY: Chest pain or SOB pleurisy or effusion suspected COMPARISON: None IMPRESSION: Cardiovascular silhouette is prominent. Some minimal atelectatic changes present in the lung bases in the right lung is hypoventilated. The lungs otherwise are clear. The brachiocephalic vessels are tortuous, and thyroid enlargement may be present. [facility]-[id number] Performing Organization Address City/[facility]/Zipcode Phone Number [facility] [address] [place] [address] Estimated GFR (09/10/2018 1:56 PM CDT)Only the most recent of2 resultswithin the time period is included. Estimated GFR 72 mL/min/1.73 m2 [facility] Comment: HOSPITAL CatergoryUnitsInterpretation G1 >=90 Normal or high G2 60-89Mildly decreased [id number] to moderately decreased [id number] to severely decreased G4 15-29Severely decreased G5 <15Kidney failure The eGFR was calculated using the Chronic Kidney Disease Epidemiology Collaboration (CKD-EPI) equation. Interpretation is based on recommendations of the National Kidney Foundation-Kidney Disease Outcomes Quality Initiative (NKF-KDOQI) published in 2014. Specimen Plasma specimen Performing Organization Address City/[facility]/Zipcode Phone Number [facility] DEPARTMENT OF PATHOLOGY AND [address] [place] [address] GENOMIC MEDICINE [facility] [address] [place] [address] CBC with platelet and differential (09/10/2018 1:56 PM CDT) WBC 11.11 (H) 4.50 - 11.00 k/uL [facility] RBC 4.20 4.20 - 5.50 m/uL [facility] HGB 12.5 12.0 - 16.0 g/dL [facility] HCT 38.6 37.0 - 47.0 % [facility] MCV 91.9 82.0 - 100.0 fL [facility] MCH 29.8 27.0 - 34.0 pg [facility] MCHC 32.4 31.0 - 37.0 g/dL [facility] RDW - SD 43.6 37.0 - 55.0 fL [facility] MPV 9.4 8.8 - 13.2 fL [facility] Platelet count 286 150 - 400 k/uL [facility] Nucleated RBC 0.00 /100 WBC [facility] Neutrophils 51.8 39.0 - 69.0 % [facility] Lymphocytes 40.1 25.0 - 45.0 % [facility] Monocytes 6.8 0.0 - 10.0 % [facility] Eosinophils 0.5 0.0 - 5.0 % [facility] Basophils 0.4 0.0 - 1.0 % [facility] Immature granulocytes 0.4Comment: "Immature 0.0 - 1.0 % [facility] granulocytes" [facility] (promyelocytes, myelocytes, metamyelocytes) Specimen Blood Performing Organization Address City/State/Zipcode Phone Number [facility] DEPARTMENT OF PATHOLOGY AND [address] [place] [address] B natriuretic peptide (09/10/2018 1:56 PM CDT) BNP <3 0 - 100 pg/mL [facility] Specimen Blood Performing Organization Address City/State/[facility] Phone Number [facility] DEPARTMENT OF PATHOLOGY AND [address] [place] [address] Comprehensive metabolic panel (09/10/2018 1:56 PM CDT) Sodium 145 135 - 148 mEq/L [facility] Potassium 3.5 3.5 - 5.0 mEq/L [facility] Chloride 102 98 - 112 mEq/L [facility] CO2 29 24 - 31 mEq/L [facility] Anion gap 14@ANIO 7 - 15 mEq/L [facility] BUN 20 6 - 20 mg/dL [facility] Creatinine 0.99 (H) 0.50 - 0.90 mg/dL [facility] Glucose 91 65 - 99 mg/dL [facility] Calcium 9.8 8.3 - 10.2 mg/dL [facility] Protein 7.7 6.3 - 8.3 g/dL [facility] Comment: HOSPITAL [place] 4.6-7.0 g/dL 1 week 4.4-7.6 g/dL 7 months-1year5.1-7.3 g/dL 1-2 years5.6-7.5 g/dL >3 years6.0-8.0 g/dL 18-150 6.3-8.3 g/dL Albumin 4.1 3.5 - 5.0 g/dL [facility] A/G ratio 1.1 0.7 - 3.8 [facility] Alkaline phosphatase 118 (H) 35 - 104 U/L [facility] AST 12 10 - 35 U/L [facility] ALT 18 5 - 50 U/L [facility] Total bilirubin 0.6 0.0 - 1.2 mg/dL [facility] Specimen Plasma specimen Performing Organization Address City/[facility] Phone Number [facility] DEPARTMENT OF PATHOLOGY AND [address] [place] [id number] GENOMIC MEDICINE [address] [address] ECG 12 lead (09/10/2018 1:27 PM CDT) Ventricular rate 86 [facility] Atrial rate [address] [facility] MUSE RI interval [address] [facility] MUSE QRSD interval 78 [facility] QT interval 370 [facility] QTC interval [address] [facility] MUSE P axis 1 49 [facility] QRS axis 1 -4 [facility] T wave axis [address] [facility] MUSE EKG impression Normal sinus rhythm-Moderate voltage criteria for LVH, may be normal variant-ST & T wave abnormality, consider inferior ischemia-ST & T wave abnormality, consider anterolateral ischemia-Abnormal ECG-In automated comparison with ECG of 02-MAY-[address] [facility] MUSE 10:20,-Vent. rate has increased BY28 BPM-T wave inversion no longer evident in Inferior leads-Electronically Signed By Yunior Vallejo ([id number]) on 2:50:13 PM Narrative Performed At Performing Organization Address City/[facility] Phone Number [facility] [address] [place] [address] ECG Pre/Post Op (05/02/2018 10:20 AM PATIENT SUPPORT SPECIALIST) Ventricular rate 58 [facility] Atrial rate 58 [facility] RI interval 136 [facility] QRSD interval 88 [facility] QT interval 428 [facility] QTC interval [address] [facility] MUSE P axis 1 48 [facility] QRS axis 1 15 [facility] T wave axis -[address] [facility] MUSE EKG impression Sinus bradycardia-T wave abnormality, [facility] MUSE consider inferior ischemia-T wave abnormality, consider anterolateral ischemia-Abnormal ECG-No previous ECGs available- Performing Organization Address City/[facility] Phone Number [facility] MUSE [address] [place] [address] Basic metabolic panel (05/02/2018 10:18 AM PATIENT SUPPORT SPECIALIST) Sodium 138 135 - 148 mEq/L [facility] DEPARTMENT OF PATHOLOGY AND GENOMIC MEDICINE Potassium 3.6 3.5 - 5.0 mEq/L [facility] DEPARTMENT OF PATHOLOGY AND GENOMIC MEDICINE Chloride 98 98 - 112 mEq/L [facility] DEPARTMENT OF PATHOLOGY AND GENOMIC MEDICINE CO2 29 24 - 31 mEq/L [facility] DEPARTMENT OF PATHOLOGY AND GENOMIC MEDICINE Anion gap 11@ANIO 7 - 15 mEq/L [facility] DEPARTMENT OF PATHOLOGY AND GENOMIC MEDICINE BUN 18 6 - 20 mg/dL [facility] DEPARTMENT OF PATHOLOGY AND GENOMIC MEDICINE Creatinine 0.88 0.50 - 0.90 mg/dL [facility] DEPARTMENT OF PATHOLOGY AND GENOMIC MEDICINE Glucose 94 65 - 99 mg/dL [facility] DEPARTMENT OF PATHOLOGY AND GENOMIC MEDICINE Calcium 9.4 8.3 - 10.2 mg/dL [facility] DEPARTMENT OF PATHOLOGY AND GENOMIC MEDICINE Specimen Plasma specimen Performing Organization Address City/[facility] Phone Number [facility] DEPARTMENT OF PATHOLOGY AND [address] [place] [address] GENOMIC MEDICINE Hand/Upper Extremity Injection/Arthrocentesis (02/21/2018 2:45 PM CDT) Narrative Performed At Miryam Wayne MD 02/23/20181:41 PM Hand/Upper Extremity Injection/Arthrocentesis Date/Time: 02/23/2018 1:38 PM Consent given by: patient Site marked: site marked Timeout: Immediately prior to procedure a time out was called to verify the correct patient, procedure, equipment, ict support technicians and site/side marked as required Supporting Documentation [...] XR Hand 3+ Vw Right (01/30/2018 3:39 PM CDT) Narrative Performed At EXAMINATION:XR HAND 3VW RIGHT [facility] CLINICAL HISTORY:hand pain ulnar nerve tingling COMPARISON:None. IMPRESSION: 1.3 view evaluation of the right hand demonstrates no evidence to suggest an acute fracture. Alignment is normal and articulation is intact. [facility]-[id number] Procedure Note Hm Interface, Radiology Results Incoming - 01/30/2018 3:51 PM CDT EXAMINATION: XR HAND 3 VW RIGHT CLINICAL HISTORY: hand pain ulnar nerve tingling COMPARISON: None. IMPRESSION: 1. 3 view evaluation of the right hand demonstrates no evidence to suggest an acute fracture. Alignment is normal and articulation is intact. [id number] Performing Organization Address City/State/Zipcode Phone Number [facility] [address] [place] [address] SPLINT APPLICATION (01/30/2018 2:25 PM CDT) Narrative Performed At [facility] MD Jose 02/05/2018 11:42 PM Splint Application Performed by: [facility] Authorized by: [facility] Consent: Consent obtained:Verbal Consent given by:Patient Risks discussed:Discoloration, pain and swelling Pre-procedure details: Sensation:Unchanged Procedure details: Location:Wrist Wrist:R wrist Cast type:Short arm Splint type:Wrist after 09/11/2017 Advance Directives Patient has advance care planning documents on file. For more information, please contact:Wiliam Albright[address] [place] [phone]
--- OUTSIDE RECORDS SUMMARY | 2018-09-12 02:22 | XMS REPORT | Clinical Summary ---
:1960 Author Organization [facility] Address [address] [place] [address] Care Team Providers Name Role Phone Geo Primary Care Provider Allergies No Known Allergies Medications Medication Sig Dispensed Refills Start Date End Date Status lisinopril Take 10 mg 0 Active (PRINIVIL,ZESTRIL) 10 MG by mouth tablet [...] Medicine Braden Roque, Sensation of foreign body in eye (Primary Dx); Redness of eye, right; Essential hypertension after 09/11/2017 Social History Tobacco Use Types Packs/Day Years [...] Not on file Results Not on fileafter 09/11/2017 Insurance Payer Benefit Plan / Subscriber ID Type Phone Address Group BLUE CROSS/BLUE BCBS PPO POS EPO xxxxxxxxxxxxxxx PPO [phone] [address] [place] [address]
--- OUTSIDE RECORDS SUMMARY | 2018-09-12 02:22 | XMS REPORT | Continuity of Care Document ---
:1960 Author Organization [facility] Address [address] [place] [address] Phone Unavailable Care Team Providers Name Role Phone SILAS SORENSON MD Primary Care Physician Insurance Providers Guarantor Tarsha Davenport Address [address] [place] [address] Email NA Payer [facility] Policy Number [id number] Subscriber's Name Tarsha Davenport Relationship Self / Same As Patient Group Number [id number] Group Name NA Advance Directives Directive Response Recorded Date/Time Patient/Family Given Education Material R/T Directives? No 05/29/18 9:39am Problems Medical Problem Onset Date Status Carpal tunnel syndrome of right wrist Unknown Edema Unknown Lack of coordination Unknown Pain in right hand Unknown Trigger little finger of right hand Unknown Medications No medication information available. Social History No social history information available. Hospital Discharge Instructions No hospital discharge instruction information available. Plan of Care Prescriptions See Medication Section Functional Status No functional status information available. Allergies, Adverse Reactions, Alerts No allergy information available. Immunizations No immunization information available. Vital Signs No vital sign information available. Results No relevant diagnostic test, laboratory data and/or discharge summary information available. Procedures Procedure Status Date Provider(s) THERAPEUTIC EXERCISES Completed 05/22/18 THERAPEUTIC ACTIVITIES Completed 05/22/18 OT EVAL LOW COMPLEX 30 MIN Completed 05/22/18 THERAPEUTIC EXERCISES Completed 05/22/18 THERAPEUTIC ACTIVITIES Completed 05/22/18 Encounters Encounter Location Arrival/Admit Date Discharge/Depart Date Attending Provider Discharged [facility] 06/21/18 1:00pm 06/25/18 11:59pm [facility] Discharged [facility] 05/22/18 11:54am 05/25/18 11:59pm Abbie CARRERA MD Medical Ctr
--- OUTSIDE RECORDS SUMMARY | 2018-09-12 02:22 | XMS REPORT | Continuity of Care Document ---
:1960 Author Organization [facility] Address [address] [place] [address] Phone Unavailable Care Team Providers Name Role Phone SILAS SORENSON MD Primary Care Physician Insurance Providers Guarantor Tarsha Davenport Address [address] [place] [address] Email NA Payer Self Pay Insurance Subscriber's Name Tarsha Davenport Relationship Self / Same As Patient Group Number [id number] Group Name NA Advance Directives Directive Response Recorded Date/Time Patient/Family Given Education Material R/T Directives? Yes 06/28/18 7:19am Problems Medical Problem Onset Date Status Carpal [...] Procedure Status Date Provider(s) THERAPEUTIC EXERCISES Completed 05/29/18 THERAPEUTIC ACTIVITIES Completed 05/29/18 THERAPEUTIC EXERCISES Completed 05/29/18 THERAPEUTIC ACTIVITIES Completed 05/29/18 THERAPEUTIC EXERCISES Completed 05/29/18 THERAPEUTIC ACTIVITIES Completed 05/29/18 THERAPEUTIC EXERCISES Completed 05/29/18 THERAPEUTIC ACTIVITIES Completed 05/29/18 THERAPEUTIC EXERCISES Completed 05/29/18 THERAPEUTIC ACTIVITIES Completed 05/29/18 THERAPEUTIC EXERCISES Completed 05/29/18 THERAPEUTIC ACTIVITIES Completed 05/29/18 Encounters Encounter Location Arrival/Admit Date Discharge/Depart Date Attending Provider Discharged [place] 06/28/18 7:22am 07/26/18 11:59pm Abbie CARRERA MD [facility] Discharged [facility] 05/29/18 9:43am 06/25/18 11:59pm Abbie CARRERA MD Medical C[facility] Recent Diagnosis Carpal tunnel syndrome of right wrist Trigger little finger of right hand Pain in right hand
--- OUTSIDE RECORDS SUMMARY | 2018-09-12 02:22 | XMS REPORT | Continuity of Care Document ---
:1960 Author Organization [facility] Address [address] [place] [address] Phone Unavailable Care Team Providers Name Role Phone SILAS SORENSON MD Primary Care Physician Insurance Providers Guarantor Tarsha Davenport Address [address] [place] [address] Email NA Payer [facility] Policy Number [id number] Subscriber's Name Tarsha Davenport Relationship Self / Same As Patient Group Number [id number] Group Name NA Advance Directives Directive Response Recorded Date/Time Patient/Family Given Education Material R/T Directives? No 05/22/18 11:54am Problems Medical Problem Onset Date Status Carpal [...] data and/or discharge summary information available. Procedures No procedure information available. Encounters Encounter Location Arrival/Admit Date Discharge/Depart Date Attending Provider Discharged [place] 05/24/18 2:00pm 05/25/18 11:59pm Abbie CARRERA MD Medical [facility] Recent Diagnosis Carpal tunnel syndrome of right wrist Trigger little finger of right hand Pain in right hand Edema Lack of coordination
[2018-09-12 03:08] LABS: Absolute Lymphocytes (CBC) 4.6 K/uL (0.7-4.9); Absolute Monocytes 0.8 K/uL (0.1-1.3); Absolute Neutrophil 6.2 K/uL (1.8-8.0); Basophils % 0.6 % (0-1.3); Eosinophils % 0.9 % (0-4.4); Hematocrit 37.7 % (36.0-45.0); Lymphocytes % 39.1 % (15.3-44.8); MPV 7.9 fL (7.6-11.3); RBC Red Blood Cell Count 4.24 M/uL (3.86-4.86)
[2018-09-12 03:20] LABS: ALT/SGPT 19 U/L (12-78); AST/SGOT 10 U/L (15-37); Albumin 3.9 g/dL (3.4-5.0); Alkaline Phosphatase 123 U/L (45-117); BUN Blood Urea Nitrogen 25 mg/dL (7-18); Bicarbonate 30 mmol/L (21-32); Bilirubin Direct < 0.1 mg/dL (0-0.2); Bilirubin Total 0.2 mg/dL (0.2-1.0); Glucose Level 122 mg/dL (74-106); Lipase 122 U/L (73-393); Potassium 3.1 mmol/L (3.5-5.1); Sodium Level 141 mmol/L (136-145)
[2018-09-12] MEDS ORDERED: ONDANSETRON 4 MG/2 ML VIAL ONE (03:45)
[2018-09-12] MEDS ORDERED: KETOROLAC 30 MG/ML INJ ONE (03:45)
[2018-09-12] MEDS ORDERED: MORPHINE 4 MG/ML SYR ONE (03:45)
--- NOTE | 2018-09-12 04:57 | EDPHYS ---
Physician Documentation [facility] Name: Tarsha Coy Age: 57 yrs Sex: Female : 1960 Arrival Date: 09/12/2018 Time: 02:20 Bed 7 Private MD: ED Physician Rui Lujan HPI: 09/12 06:47 This 57 yrs old Black Female presents to ER via Wheelchair with complaints of Side Pain.tw4 06:47 The patient or guardian reports chest pain that is located primarily in the anterior tw4 chest wall, left. Onset: 3 day(s) ago. The pain does not radiate. Associated signs and symptoms: The patient has no apparent associated signs or symptoms. The chest pain is described as dull, sharp. Duration: The patient or guardian reports multiple episodes, that wax and wane. Modifying factors: The symptoms are alleviated by remaining still, rest, the symptoms are aggravated by deep breath, movement, palpation of area, twisting torso. Severity of pain: At its worst the pain was moderate in the emergency department the pain is unchanged. The patient has experienced a previous episode, approximately 3 days ago, and the symptoms today are exactly the same. The patient has been recently seen by a physician: congregational had CT chest and cardiac enzymes x 2 all negative 3 day(s) ago. Historical: - Allergies: 02:35 No Known Allergies; lp1 - Home Meds: 02:35 lisinopril-hydrochlorothiazide 10-12.5 mg Oral tab 1 tab once daily [Active]; lp1 - PMHx: 02:35 Hypertension; Thyroid goiter; lp1 - PSHx: 02:35 Carpel tunnel; Knee surgery; lp1 - Immunization history:: Adult Immunizations unknown. - Social history:: Smoking status: Patient/guardian denies using tobacco. - Ebola Screening: : No symptoms or risks identified at this time. ROS: 06:47 Constitutional: Negative for fever, chills, and weight loss, Eyes: Negative for injury, tw4 pain, redness, and discharge, Respiratory: Negative for shortness of breath, cough, wheezing, and pleuritic chest pain, Abdomen/GI: Negative for abdominal pain, nausea, vomiting, diarrhea, and constipation, Back: Negative for injury and pain, MS/Extremity: Negative for injury and deformity, Skin: Negative for injury, rash, and discoloration, Neuro: Negative for headache, weakness, numbness, tingling, and seizure. 06:47 Cardiovascular: Positive for chest pain, Negative for edema, orthopnea, palpitations. Exam: 06:47 Constitutional: This is a well developed, well nourished patient who is awake, alert, tw4 and in no acute distress. Head/Face: Normocephalic, atraumatic. Cardiovascular: Regular rate and rhythm with a normal S1 and S2. No gallops, murmurs, or rubs. Normal PMI, no JVD. No pulse deficits. Respiratory: Lungs have equal breath sounds bilaterally, clear to auscultation and percussion. No rales, rhonchi or wheezes noted. No increased work of breathing, no retractions or nasal flaring. Abdomen/GI: Soft, non-tender, with normal bowel sounds. No distension or tympany. No guarding or rebound. No evidence of tenderness throughout. Back: No spinal tenderness. No costovertebral tenderness. Full range of motion. MS/ Extremity: Pulses equal, no cyanosis. Neurovascular intact. Full, normal range of motion. 06:47 Chest/axilla: Inspection: normal, Palpation: tenderness, that is severe, of the tw4 diaphragm and left breast, that totally reproduces the patient's complaints. Vital Signs: 02:34 BP 157 / 99; Pulse 82; Resp 18; Temp 98.2(O); Pulse Ox 98% on R/A; Weight 72.57 kg; lp1 Height 5 ft. 1 in. (154.94 cm); Pain 10/10; 03:00 BP 134 / 98; Pulse 70; Resp 16; Temp 98.3; Pulse Ox 98% on R/A; Pain 10/10; ak1 04:05 BP 114 / 79; Pulse 64; Resp 14; Pulse Ox 100% on 2 lpm NC; Pain 2/10; ak1 05:12 BP 106 / 75; Pulse 64; Resp 14; Temp 98.3; Pulse Ox 99% on 2 lpm NC; ak1 02:34 Body Mass Index 30.23 (72.57 kg, 154.94 cm) lp1 MDM: 02:30 Patient medically screened. tw4 06:47 Differential diagnosis: acute myocardial infarction, acute pericarditis, herpes zoster, tw4 pulmonary embolus, stable angina. Data reviewed: vital signs, nurses notes. Data interpreted: Pulse oximetry: Interpretation: normal. Test interpretation: by ED physician or midlevel provider: not applicable. Counseling: I had a detailed discussion with the patient and/or guardian regarding: the historical points, exam findings, and any diagnostic results supporting the discharge/admit diagnosis. Medication response: morphine relieved the patient's pain. Symptoms have resolved, Toradol relieved patient's pain. The symptoms have resolved. Response to treatment: and as a result, I will discharge patient. Special discussion: Based on the patient's history, exam, and Dx evaluation, there is no indication for emergent intervention or inpatient Tx. It is understood by the patient/guardian that if the Sx's persist or worsen they need to return immediately for re-evaluation. I discussed with the patient/guardian in detail that at this point there is no indication for admission to the hospital. It is understood, however, that if the symptoms persist or worsen the patient needs to return immediately for re-evaluation. 06:47 ED course: Pt had complete cardiac workup including CT chest to rule out PE that was tw4 negative yesterday( reports were brought in by pt and I reviewed the old records. I believe that clinically pt's pain is entirely musculoskeletal. 09/12 02:35 Order name: Basic Metabolic Panel tw4 09/12 02:35 Order name: CBC with Diff tw09/12 02:35 Order name: Creatinine for Radiology tw09/12 02:35 Order name: Hepatic Function tw09/12 02:35 Order name: Lipase tw4 09/12 02:48 Order name: Troponin (emerg Dept Use Only) tw4 09/12 02:35 Order name: IV Saline Lock; Complete Time: 02:46 tw4 09/12 02:35 Order name: Labs collected and sent; Complete Time: 02:46 09/12 02:48 Order name: EKG - Nurse/Tech; Complete Time: 03:21 4 EC:47 Rhythm is regular. QRS [place] is Normal. SC interval is normal. QRS interval is normal. tw4 QT interval is normal. No Q waves. T waves are Normal in leads V3, V4, V5, V6. T waves are Inverted. No ST changes noted. Clinical impression: NSR w/ Non-specific ST/T Changes. Interpreted by me. Reviewed by me. Administered Medications: 03:41 Drug: Zofran 4 mg Route: IVP; Site: right antecubital; ak1 05:13 Follow up: Response: No adverse reaction ak1 03:41 Drug: morphine 4 mg Route: IVP; Site: right antecubital; ak1 05:13 Follow up: Response: No adverse reaction ak1 03:42 Drug: TORadol 30 mg Route: IVP; Site: right antecubital; ak1 05:13 Follow up: Response: No adverse reaction ak1 Disposition: 09/12/18 04:56 Discharged to Home. Impression: thoracic strain. - Condition is Stable. - Discharge Instructions: Thoracic Strain. - Prescriptions for Ibuprofen 800 mg Oral Tablet - take 1 tablet by ORAL route every 12 hours As needed take with food; 20 tablet. Tramadol 50 mg Oral Tablet - take 1 tablet by ORAL route every 8 hours as needed; 12 tablet. - Medication Reconciliation Form, Thank You Letter, Antibiotic Education, Prescription Opioid Use form. - Follow up: Private Physician; When: Upon discharge from the Emergency Department; Reason: If symptoms return, Recheck today's complaints, Continuance of care. - Problem is new. - Symptoms have improved. Signatures: Dispatcher [employer] EDKaren Sanchez RN RN lp1 Blanche Garcia RN RN ak1 Rui Lujan MD MD tw4 Corrections: (The following items were deleted from the chart) 05:23 04:56 09/12/2018 04:56 Discharged to Home. Impression: thoracic strain. Condition is ak1 Stable. Forms are Medication Reconciliation Form, Thank You Letter, Antibiotic Education, Prescription Opioid Use. Follow up: Private Physician; When: Upon discharge from the Emergency Department; Reason: If symptoms return, Recheck today's complaints, Continuance of care. Problem is new. Symptoms have improved. tw4
--- NOTE | 2018-09-12 04:57 | ER ---
Nurse's Notes [facility] Name: Tarsha Coy Age: 57 yrs Sex: Female : 1960 Arrival Date: 09/12/2018 Time: 02:20 Bed 7 Private MD: Diagnosis: thoracic strain Presentation: 09/12 02:32 Presenting complaint: Patient states: L sided rib pain that radiates across front of lp1 chest x 3-4 days, worsening pain; Denies any trauma, N/V, constipation; Pain with respiration. Transition of care: patient was not received from another setting of care. Onset of symptoms was September 12, 2018. Risk Assessment: Do you want to hurt yourself or someone else? Patient reports no desire to harm self or others. Initial Sepsis Screen: Does the patient meet any 2 criteria? No. Patient's initial sepsis screen is negative. Does the patient have a suspected source of infection? No. Patient's initial sepsis screen is negative. Care prior to arrival: None. 02:32 Method Of Arrival: Wheelchair lp1 02:32 Acuity: IKE 3 lp1 Triage Assessment: 02:38 General: Appears uncomfortable, Behavior is calm, cooperative. Pain: Complains of pain ak1 in diaphragm and left breast. EENT: No signs and/or symptoms were reported regarding the EENT system. Neuro: No deficits noted. Cardiovascular: No deficits noted. Heart tones S1 S2 present. Respiratory: Reports pain with respiration since "couple of days" pt seen at [facility] yesterday labs collected, CT PE Angio preformed with negative results. Chest Xray preformed with negative findings. pt c/o increased pain under left breast with inspiration. Airway is patent Breath sounds are clear bilaterally. GI: Abdomen is round non-distended, Bowel sounds present X 4 quads. Abd is soft and non tender X 4 quads. : No signs and/or symptoms were reported regarding the genitourinary system. Derm: No signs and/or symptoms reported regarding the dermatologic system. Musculoskeletal: No signs and/or symptoms reported regarding the musculoskeletal system. Historical: - Allergies: 02:35 No Known Allergies; lp1 - Home Meds: 02:35 lisinopril-hydrochlorothiazide 10-12.5 mg Oral tab 1 tab once daily [Active]; lp1 - PMHx: 02:35 Hypertension; Thyroid goiter; lp1 - PSHx: 02:35 Carpel tunnel; Knee surgery; lp1 - Immunization history:: Adult Immunizations unknown. - Social history:: Smoking status: Patient/guardian denies using tobacco. - Ebola Screening: : No symptoms or risks identified at this time. Screenin:35 Abuse screen: Denies threats or abuse. Denies injuries from another. Nutritional lp1 screening: No deficits noted. Tuberculosis screening: No symptoms or risk factors identified. 02:43 Fall Risk None identified. ak1 Assessment: 02:43 Reassessment: Patient appears in no apparent distress at this time. No changes from ak1 previously documented assessment. see triage assessment. 04:07 Reassessment: Patient appears in no apparent distress at this time. No changes from ak1 previously documented assessment. Patient and/or family updated on plan of care and expected duration. Pain level reassessed. Patient states feeling better. Patient states symptoms have improved. 05:12 Reassessment: Patient appears in no apparent distress at this time. No changes from ak1 previously documented assessment. Patient and/or family updated on plan of care and expected duration. Pain level reassessed. Patient states feeling better. Patient states symptoms have improved. Vital Signs: 02:34 BP 157 / 99; Pulse 82; Resp 18; Temp 98.2(O); Pulse Ox 98% on R/A; Weight 72.57 kg; lp1 Height 5 ft. 1 in. (154.94 cm); Pain 10/10; 03:00 BP 134 / 98; Pulse 70; Resp 16; Temp 98.3; Pulse Ox 98% on R/A; Pain 10/10; ak1 04:05 BP 114 / 79; Pulse 64; Resp 14; Pulse Ox 100% on 2 lpm NC; Pain 2/10; ak1 05:12 BP 106 / 75; Pulse 64; Resp 14; Temp 98.3; Pulse Ox 99% on 2 lpm NC; ak1 02:34 Body Mass Index 30.23 (72.57 kg, 154.94 cm) lp1 ED Course: 02:20 Patient arrived in ED. ds1 02:30 Rui Lujan MD is Attending Physician. tw4 02:34 Triage completed. lp1 02:34 Arm band placed on. lp1 02:38 Krenek, Blanche, RN is Primary Nurse. ak1 02:38 Patient has correct armband on for positive identification. Bed in low position. Call ak1 light in reach. Side rails up X2. Pulse ox on. NIBP on. 02:45 Inserted saline lock: 20 gauge in right forearm, using aseptic technique. Blood rr5 collected. 05:22 No provider procedures requiring assistance completed. IV discontinued, intact, ak1 bleeding controlled, No redness/swelling at site. Pressure dressing applied. Administered Medications: 03:41 Drug: Zofran 4 mg Route: IVP; Site: right antecubital; ak1 05:13 Follow up: Response: No adverse reaction ak1 03:41 Drug: morphine 4 mg Route: IVP; Site: right antecubital; ak1 05:13 Follow up: Response: No adverse reaction ak1 03:42 Drug: TORadol 30 mg Route: IVP; Site: right antecubital; ak1 05:13 Follow up: Response: No adverse reaction ak1 Outcome: 04:56 Discharge ordered by . lakhwinder 05:22 Discharged to home via wheelchair, with family. ak1 05:22 Condition: good 05:22 Discharge instructions given to patient, family, Instructed on discharge instructions, follow up and referral plans. no drinking with medication, no driving heavy equipment, medication usage, Demonstrated understanding of instructions, follow-up care, medications, Prescriptions given X 2. 05:23 Patient left the ED. ak1 Signatures: Milana Francois ds1 Karen Gleason RN RN lp1 Blanche Garcia RN RN ak1 Rui Lujan MD MD tw4 Dion Rajput RN RN rr5 Corrections: (The following items were deleted from the chart) 02:38 02:32 Presenting complaint: Patient states: L sided rib pain that radiates across front lp1 of chest x 3-4 days, worsening pain; Denies N/V, constipation; Pain with respiration lp1
--- NOTE | 2018-09-12 12:20 | EKG ---
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
== END 2018-09-12 05:23 | disposition home or self-care (01) ==
LOC: ER 02:19
DX: S29.012A Strain of muscle and tendon of back wall of thorax, initial encounter (principal); I10 Essential (primary) hypertension
CPT/HCPCS: 36415; 80048; 80076; 83690; 84484; 85025; 93005; 96374; 96375; 99284; J2405

== ENCOUNTER 2021-01-20 21:33 | Emergency (ER) | payer BC, SELFPAY ==
[2021-01-20] MEDS ORDERED: ACETAMINOPHEN 500 MG TAB ONE (23:02)
--- NOTE | 2021-01-21 01:08 | ER ---
Nurse's Notes [facility] Name: Tarsha Coy Age: 60 yrs Sex: Female : 1960 Arrival Date: 01/20/2021 Time: 21:39 Bed 23 Private MD: Diagnosis: Other specified viral diseases-COVID - 19 Presentation: 01/20 22:32 Chief complaint: Patient states: I feel dizzy and some abdominal pain with headache. tl1 This started last night. Coronavirus screen: Client denies travel out of the [place] in the last 14 days. Ebola Screen: Patient negative for fever greater than or equal to 101.5 degrees Fahrenheit, and additional compatible Ebola Virus Disease symptoms Patient denies exposure to infectious person. Patient denies travel to an Ebola-affected area in the 21 days before illness onset. Initial Sepsis Screen: Does the patient meet any 2 criteria? No. Patient's initial sepsis screen is negative. Risk Assessment: Do you want to hurt yourself or someone else? Patient reports no desire to harm self or others. Onset of symptoms was January 19, 2021. 22:32 Method Of Arrival: Ambulatory tl1 22:32 Acuity: IKE 3 tl1 Historical: - Allergies: 22:37 PENICILLINS; tl1 - Home Meds: 22:37 Lisinopril Oral [Active]; tl1 - PMHx: 22:37 carpal tunnel; Hypertension; Thyroid goiter; tl1 - PSHx: 22:37 knee; tl1 - Immunization history:: Adult Immunizations up to date, Client reports having NOT received the Covid vaccine. - Social history:: Smoking status: Patient denies any tobacco usage or history of. - Family history:: not pertinent. Screenin/29 00:24 Abuse screen: Denies threats or abuse. Nutritional screening: No deficits noted. em Tuberculosis screening: No symptoms or risk factors identified. Fall Risk None identified. Assessment: 00:00 General: Appears in no apparent distress. comfortable, Behavior is calm, cooperative, em appropriate for age, Reports fatigue for 12-24 hours. Pain: Complains of pain in body. Neuro: Level of Consciousness is awake, alert, obeys commands, Oriented to person, place, time, situation. Cardiovascular: Capillary refill < 3 seconds Patient's skin is warm and dry. Respiratory: Reports cough that is Airway is patent Respiratory effort is even, unlabored, Respiratory pattern is regular, symmetrical. Derm: Skin is intact, is healthy with good turgor, Skin is pink, warm \T\ dry. Musculoskeletal: Capillary refill < 3 seconds, Range of motion: intact in all extremities. Vital Signs: 01/20 22:32 BP 128 / 107; Pulse 107; Resp 18; Temp 100.6(O); Pulse Ox 98% on R/A; Weight 70.76 kg; tl1 Height 5 ft. 1 in. (154.94 cm); Pain 7/10; 01/21 00:45 BP 141 / 94; Pulse 94; Resp 20; Temp 99.2; Pulse Ox 98% on R/A; em 01/20 22:32 Body Mass Index 29.48 (70.76 kg, 154.94 cm) tl1 ED Course: 01/20 21:39 Patient arrived in ED. es 22:37 Triage completed. tl1 22:38 Arm band placed on right wrist. tl1 01/21 00:23 Daren Multani, RN is Primary Nurse. em 00:24 Patient has correct armband on for positive identification. Bed in low position. Call em light in reach. Side rails up X2. Adult w/ patient. Pulse ox on. NIBP on. 00:38 Norman Escobedo MD is Attending Physician. ma2 01:31 No provider procedures requiring assistance completed. Patient did not have IV access em during this emergency room visit. Administered Medications: 01/20 22:40 Drug: Tylenol 1000 mg Route: PO; em Outcome: 01/21 01:07 Discharge ordered by . ma2 01:31 Discharged to home ambulatory, with family. em 01:31 Condition: stable 01:31 Discharge instructions given to patient, Instructed on discharge instructions, follow up and referral plans. medication usage, Demonstrated understanding of instructions, follow-up care, medications, Prescriptions given X 4. 01:31 Patient left the ED. em Signatures: Nabila Meléndez Edgar, RN RN Summer Dimas RN RN tl1 Norman Escobedo MD MD [facility]
--- NOTE | 2021-01-21 01:08 | EDPHYS ---
Physician Documentation [facility] Name: Tarsha Coy Age: 60 yrs Sex: Female : 1960 Arrival Date: 01/20/2021 Time: 21:39 Bed 23 Private MD: ED Physician Norman Escobedo HPI: 01/21 01:05 This 60 yrs old Black Female presents to ER via Ambulatory with complaints of Cough, ma2 Dizziness, FEEL BAD. 01:05 The patient or guardian reports cough. Onset: The symptoms/episode began/occurred ma2 gradually, 1 day(s) ago. Severity of symptoms: At their worst the symptoms were mild, in the emergency department the symptoms are unchanged. Associated signs and symptoms: Pertinent negatives: ear ache, nausea, sore throat. The patient has not experienced similar symptoms in the past. Historical: - Allergies: 01/20 22:37 PENICILLINS; tl1 - Home Meds: 22:37 Lisinopril Oral [Active]; tl1 - PMHx: 22:37 carpal tunnel; Hypertension; Thyroid goiter; tl1 - PSHx: 22:37 knee; tl1 - Immunization history:: Adult Immunizations up to date, Client reports having NOT received the Covid vaccine. - Social history:: Smoking status: Patient denies any tobacco usage or history of. - Family history:: not pertinent. ROS: 01/21 01:05 Constitutional: Negative for fever, chills, and weight loss, Eyes: Negative for injury, ma2 pain, redness, and discharge, ENT: Negative for injury, pain, and discharge, Neck: Negative for injury, pain, and swelling, Cardiovascular: Negative for chest pain, palpitations, and edema, Respiratory: Negative for shortness of breath, cough, wheezing, and pleuritic chest pain, Abdomen/GI: Negative for abdominal pain, nausea, diarrhea, and constipation, Back: Negative for injury and pain, MS/Extremity: Negative for injury and deformity, Skin: Negative for injury, rash, and discoloration, Neuro: Negative for headache, weakness, numbness, tingling, and seizure, Psych: Negative for depression, anxiety, suicide ideation, homicidal ideation, and hallucinations, Allergy/Immunology: Negative for hives, rash, and allergies. 01:05 All other systems are negative. ma2 Exam: 01:05 Constitutional: This is a well developed, well nourished patient who is awake, alert, ma2 and in no acute distress. Head/Face: Normocephalic, atraumatic. Eyes: Pupils equal round and reactive to light, extra-ocular motions intact. Lids and lashes normal. Conjunctiva and sclera are non-icteric and not injected. Cornea within normal limits. Periorbital areas with no swelling, redness, or edema. ENT: Nares patent. No nasal discharge, no septal abnormalities noted. Tympanic membranes are normal and external auditory canals are clear. Oropharynx with no redness, swelling, or masses, exudates, or evidence of obstruction, uvula midline. Mucous membranes moist. Neck: Trachea midline, no thyromegaly or masses palpated, and no cervical lymphadenopathy. Supple, full range of motion without nuchal rigidity, or vertebral point tenderness. No Meningismus. Chest/axilla: Normal chest wall appearance and motion. Nontender with no deformity. No lesions are appreciated. Cardiovascular: Regular rate and rhythm with a normal S1 and S2. No gallops, murmurs, or rubs. Normal PMI, no JVD. No pulse deficits. Respiratory: Lungs have equal breath sounds bilaterally, clear to auscultation and percussion. No rales, rhonchi or wheezes noted. No increased work of breathing, no retractions or nasal flaring. Abdomen/GI: Soft, non-tender, with normal bowel sounds. No distension or tympany. No guarding or rebound. No evidence of tenderness throughout. Back: No spinal tenderness. No costovertebral tenderness. Full range of motion. Skin: Warm, dry with normal turgor. Normal color with no rashes, no lesions, and no evidence of cellulitis. MS/ Extremity: Pulses equal, no cyanosis. Neurovascular intact. Full, normal range of motion. Neuro: Awake and alert, GCS 15, oriented to person, place, time, and situation. Cranial nerves II-XII grossly intact. Motor strength 5/5 in all extremities. Sensory grossly intact. Cerebellar exam normal. Normal gait. Vital Signs: 01/20 22:32 BP 128 / 107; Pulse 107; Resp 18; Temp 100.6(O); Pulse Ox 98% on R/A; Weight 70.76 kg; tl1 Height 5 ft. 1 in. (154.94 cm); Pain 01/02; 01/21 00:45 BP 141 / 94; Pulse 94; Resp 20; Temp 99.2; Pulse Ox 98% on R/A; em 01/20 22:32 Body Mass Index 29.48 (70.76 kg, 154.94 cm) tl1 MDM: 00:38 Patient medically screened. ma2 01:05 Differential Diagnosis: Bronchitis Upper Respiratory Infection Viral Syndrome ma2 Pneumonia. Data reviewed: vital signs, nurses notes. Counseling: I had a detailed discussion with the patient and/or guardian regarding: the historical points, exam findings, and any diagnostic results supporting the discharge/admit diagnosis, the presence of at least one elevated blood pressure reading (>120/80) during this emergency department visit, the need for outpatient follow up. Response to treatment: the patient's symptoms have markedly improved after treatment. 01/20 23:39 Order name: Flu em 01/20 23:40 Order name: Influenza Screen (A ; Complete Time: 00:37 EDMS 01/21 00:45 Order name: SARS-COV-2 RT PCR EDMS Administered Medications: 01/20 22:40 Drug: Tylenol 1000 mg Route: PO; em Disposition Summary: 01/21/21 01:07 Discharge Ordered Location: Home ma2 Condition: Stable ma2 Diagnosis - Other specified viral diseases - COVID - 19 ma2 Followup: ma2 - With: Private Physician - When: Tomorrow - Reason: Continuance of care Discharge Instructions: - Discharge Summary Sheet ma2 - Viral Respiratory Infection ma2 - COVID-19 ma2 - COVID-19 Frequently Asked Questions ak2 - 10 Things You Can Do to Manage Your COVID-19 Symptoms at Home - [facility] ma2 - COVID-19: Quarantine vs. Isolation - [facility] ma2 Forms: - Medication Reconciliation Form ma2 - Thank You Letter ma2 - Antibiotic Education ma2 - Prescription Opioid Use ma2 Prescriptions: - albuterol sulfate 90 mcg/actuation Inhalation HFA aerosol inhaler - inhale 1 puff by INHALATION route every 4 hours; 1 vial; Refills: 0, Product ma2 Selection Permitted - Diclofenac Sodium 75 mg Oral Tablet Sustained Release - take 1 tablet by ORAL route 2 times per day; 30 tablet; Refills: 0, Product ma2 Selection Permitted - Zithromax Z-Juan F 250 mg Oral Tablet - take 1 tablet by ORAL route as directed for 5 days Day 1 - take two (2) tablets ma2 one time. Day 2, 3, 4 , 5 take one (1) tablet once daily.; 6 tablet; Refills: 0, Product Selection Permitted - Medrol (Juan F) 4 mg Oral Tablets, Dose Pack - take 1 tablet by ORAL route as directed - follow package instructions; 1 ma2 packet; Refills: 0, Product Selection Permitted Signatures: Dispatcher [employer] Daren Wang, RN RN Summer Dimas RN RN tl1 Norman Escobedo MD MD ma2 Corrections: (The following items were deleted from the chart) 23:55 23:45 CORONAVIRUS+MR.LAB.BRZ ordered. EDMS EDMS 01/21 00:51 00:38 Chest Single View+RAD.RAD.BRZ ordered. EDMS EDMS
[2021-01-21 17:50] VITALS: O2SAT 98
[2021-01-21 17:51] VITALS: BP 141/94; TEMP 99.2
== END 2021-01-21 01:31 | disposition home or self-care (01) ==
LOC: ER 21:33
DX: U07.1 COVID-19 (principal); I10 Essential (primary) hypertension; Z88.0 Allergy status to penicillin
CPT/HCPCS: 87804 ×2; 99283; U0003

== ENCOUNTER 2021-01-25 14:15 | Inpatient (IN) | payer BC ==
[2021-01-25 16:56] LABS: Protime INR 1.04
[2021-01-25 16:57] LABS: Absolute Lymphocytes (CBC) 1.2 K/uL (0.7-4.9); Basophils % 0.3 % (0-1.3); Hematocrit 42.5 % (36.0-45.0); Lymphocytes % 13.4 % (15.3-44.8); MPV 7.6 fL (7.6-11.3); RBC Red Blood Cell Count 4.77 M/uL (3.86-4.86)
[2021-01-25 17:10] LABS: ALT/SGPT 27 U/L (12-78); AST/SGOT 25 U/L (15-37); Albumin 3.9 g/dL (3.4-5.0); Alkaline Phosphatase 94 U/L (45-117); BUN Blood Urea Nitrogen 37 mg/dL (7-18); Bicarbonate 30 mmol/L (21-32); Bilirubin Direct 0.1 mg/dL (0-0.2); Bilirubin Total 0.3 mg/dL (0.2-1.0); Ferritin 936.2 ng/mL (8-388); Glucose Level 130 mg/dL (74-106); Magnesium 2.7 mg/dL (1.8-2.4); NT PRO-BNP 24 pg/mL (<125); Sodium Level 135 mmol/L (136-145); Troponin (Emerg Dept Use Only) < 0.02 ng/mL (0.0-0.045)
--- NOTE | 2021-01-25 17:45 | RAD REPORT ---
EXAM DESCRIPTION: RAD - Chest Pa And Lat (2 Views) - 01/25/2021 5:35 pm CLINICAL HISTORY: COUGH Chest pain. COMPARISON: Chest Single View dated 02/26/2018 FINDINGS: Moderately severe bilateral pulmonary opacities are present, greater on the left. This is most compatible with underlying COVID-19 infection. The heart is normal in size. No displaced fractur es.
--- NOTE | 2021-01-25 18:53 | ER ---
Nurse's Notes [facility] Name: Tarsha Coy Age: 60 yrs Sex: Female : 1960 Arrival Date: 01/25/2021 Time: 14:21 Bed 20 Private MD: Diagnosis: Pneumonia due to SARS-associated coronavirus;Hypoxia Presentation: 01/25 16:30 Chief complaint: Patient's son or daughter states: COVID +, diff breathing started iw yesterday. Coronavirus screen: Client reports previous positive COVID test result. Ebola Screen: Patient negative for fever greater than or equal to 101.5 degrees Fahrenheit, and additional compatible Ebola Virus Disease symptoms Patient denies exposure to infectious person. Patient denies travel to an Ebola-affected area in the 21 days before illness onset. No symptoms or risks identified at this time. Onset of symptoms was January 24, 2021. 16:30 Method Of Arrival: Ambulatory iw 16:30 Acuity: IKE 3 iw Historical: - Allergies: 17:30 PENICILLINS; iw - PMHx: 17:30 carpal tunnel; Hypertension; Thyroid goiter; iw - PSHx: 17:30 knee; iw Vital Signs: 17:42 BP 121 / 86; Pulse 85; Resp 18 S; Temp 98.5; Pulse Ox 91% on R/A; iw 18:30 BP 133 / 98; Pulse 94; Resp 18; Pulse Ox 92% on R/A; vg1 ED Course: 14:21 Patient arrived in ED. mr 17:00 Triage completed. iw 17:35 XRAY Chest Pa And Lat (2 Views) In Process Unspecified. EDMS 17:41 Arm band placed on. iw 18:29 Phi Rivera NP is PHCP. pm1 18:30 aDrrick Meek MD is Attending Physician. pm1 18:47 Sarahi Flores, BAUTISTA is Primary Nurse. vg1 18:51 Ty Gunter DO is Hospitalizing Provider. pm1 Administered Medications: 19:25 Drug: NS 0.9% 500 ml Route: IV; Rate: bolus; Site: right antecubital; em 19:25 Drug: SOLU-Medrol (methylPrednisoLONE) 125 mg Route: IVP; Site: right antecubital; em Outcome: 18:51 Decision to Hospitalize by Provider. pm1 01/26 18:15 Patient left the ED. iw Signatures: Dispatcher [employer] Sunshine Galloway Edgar, RN RN Lora Lucero RN RN Phi Horton, JONATHAN BREWMASTER pm1 Sarahi Flores RN RN vg1
--- NOTE | 2021-01-25 18:53 | EDPHYS ---
Physician Documentation [facility] Name: Tarsha Coy Age: 60 yrs Sex: Female : 1960 Arrival Date: 01/25/2021 Time: 14:21 Bed 20 Private MD: ED Physician Darrick Meek HPI: 01/25 16:23 This 60 yrs old Black Female presents to ER via Unassigned with complaints of Breathing cp Difficulty. 16:23 The patient has shortness of breath at rest. Onset: The symptoms/episode began/occurred cp yesterday. 16:23 Duration: The symptoms are continuous, and are steadily getting worse. cp 16:23 The patient's shortness of breath is aggravated by light activity. Associated signs and cp symptoms: Pertinent positives: chest pain, non-productive cough, Pertinent negatives: fever, vomiting. Severity of symptoms: in the emergency department the symptoms are unchanged despite home interventions. Historical: - Allergies: 17:30 PENICILLINS; iw - PMHx: 17:30 carpal tunnel; Hypertension; Thyroid goiter; iw - PSHx: 17:30 knee; iw ROS: 16:30 Cardiovascular: Positive for chest pain, Negative for edema, palpitations. cp 16:30 Respiratory: Positive for cough, "sounds productive", shortness of breath, at rest. 18:52 ENT: Negative for injury, pain, and discharge. pm1 18:52 Abdomen/GI: Negative for abdominal pain, nausea, vomiting, diarrhea, and constipation. 18:52 Back: Negative for injury and pain, MS/Extremity: Negative for injury and deformity, Skin: Negative for injury, rash, and discoloration, Neuro: Negative for headache, weakness, numbness, tingling, and seizure. 18:52 Constitutional: Positive for body aches, chills, Negative for poor PO intake. 18:52 Cardiovascular: Positive for chest pain, Negative for edema, palpitations. 18:52 Respiratory: Positive for cough, shortness of breath, at rest. Exam: 16:32 Head/Face: Normocephalic, atraumatic. cp 16:32 Constitutional: The patient appears in no acute distress, alert, awake, non-diaphoretic, non-toxic, well developed, well nourished. 16:32 Eyes: Periorbital structures: appear normal, Conjunctiva: normal, no exudate, no injection, Sclera: no appreciated abnormality, Lids and lashes: appear normal, bilaterally. 16:32 ENT: External ear(s): are unremarkable, Nose: is normal, Mouth: Lips: moist, Oral mucosa: moist, Posterior pharynx: Airway: no evidence of obstruction, patent. 16:32 Neck: ROM/movement: is normal, is supple, without pain, no range of motions limitations, no meningismus. 16:32 Chest/axilla: Inspection: normal, Palpation: is normal, no crepitus, no tenderness. 16:32 Cardiovascular: Rate: normal, Rhythm: regular, Edema: is not appreciated, JVD: is not appreciated. 16:32 Respiratory: the patient does not display signs of respiratory distress, Respirations: labored breathing, that is mild, intercostal retractions, are absent, shallow respirations, that is mild, Breath sounds: bronchial sounds, that are mild, are heard diffusely, decreased breath sounds, that are mild, diffuse, stridor, is not appreciated, wheezing: is not appreciated. 16:32 Abdomen/GI: Exam negative for discomfort, distension, guarding, Inspection: abdomen appears normal. 16:32 Neuro: Orientation: to person, place \\T\\ time. Mentation: is normal. Vital Signs: 17:42 BP 121 / 86; Pulse 85; Resp 18 S; Temp 98.5; Pulse Ox 91% on R/A; iw 18:30 BP 133 / 98; Pulse 94; Resp 18; Pulse Ox 92% on R/A; vg1 MDM: 18:30 Patient medically screened. pm1 18:42 Physician consultation: John KAT was contacted at 18:42, regarding admission, pm1 patient's condition, and will see patient in ED, shortly, would like medications started, Solumedrol. 18:49 Data reviewed: vital signs. Data interpreted: Pulse oximetry: on room air is 91 %. pm1 Interpretation: borderline. Plan: O2 by NC applied. 18:49 Counseling: I had a detailed discussion with the patient and/or guardian regarding: the pm1 historical points, exam findings, and any diagnostic results supporting the discharge/admit diagnosis, lab results, radiology results, the need for further work-up and treatment in the hospital. 01/25 16:32 Order name: Basic Metabolic Panel; Complete Time: 18:29 cp 01/25 16:32 Order name: CBC with Diff; Complete Time: 18:29 cp 01/25 16:32 Order name: LFT's; Complete Time: 18:29 cp 01/25 16:32 Order name: Magnesium; Complete Time: 18:29 cp 01/25 16:32 Order name: NT PRO-BNP; Complete Time: 18:29 cp 01/25 16:32 Order name: PT-INR; Complete Time: 18:29 cp 01/25 16:32 Order name: Troponin (emerg Dept Use Only); Complete Time: 18:29 cp 01/25 16:32 Order name: CRP; Complete Time: 18:29 cp 01/25 16:32 Order name: Ferritin; Complete Time: 18:29 cp 03 06:07 Order name: CBC with Automated Diff; Complete Time: 07:40 EDMS 01/26 06:17 Order name: Comprehensive Metabolic Panel; Complete Time: 07:40 EDMS 01/26 06:17 Order name: Lipid Profile; Complete Time: 07:40 EDMS 01/26 06:17 Order name: C-Reactive Protein; Complete Time: 07:40 EDMS 01/26 06:17 Order name: T4 Free; Complete Time: 07:40 EDMS 01/25 16:32 Order name: EKG; Complete Time: 16:33 cp 01/25 16:32 Order name: Cardiac monitoring 01/25 16:32 Order name: EKG - Nurse/Tech 01/25 16:32 Order name: IV Saline Lock; Complete Time: 18:48 cp 01/25 16:32 Order name: Labs collected and sent; Complete Time: 18:48 cp 01/25 16:32 Order name: O2 Per Protocol; Complete Time: 18:48 cp 01/25 16:32 Order name: O2 Sat Monitoring; Complete Time: 18:49 cp 02 16:35 Order name: XRAY Chest Pa And Lat (2 Views); Complete Time: 18:29 cp 01/26 06:17 Order name: Thyroid Stimulating Hormone; Complete Time: 07:40 EDMS 01/26 06:17 Order name: Ferritin; Complete Time: 07:40 EDMS 01/26 08:44 Order name: Urinalysis; Complete Time: 13:54 EDMS Administered Medications: 19:25 Drug: NS 0.9% 500 ml Route: IV; Rate: bolus; Site: right antecubital; em 19:25 Drug: SOLU-Medrol (methylPrednisoLONE) 125 mg Route: IVP; Site: right antecubital; em Disposition: 01/27 07:13 Co-signature as Attending Physician, Darrick Meek MD I agree with the assessment and kdr plan of care. Disposition Summary: 01/25/21 18:51 Hospitalization Ordered Hospitalization Status: Inpatient Admission pm1 Provider: Ty Gunter pm1 Condition: Stable pm1 Problem: new pm1 Symptoms: have improved pm1 Bed/Room Type: Standard pm1 Location: Telemetry/MedSurg (Inpatient)(01/26/21 17:37) Room Assignment: 414(01/26/21 17:37) Diagnosis - Pneumonia due to SARS-associated coronavirus pm1 - Hypoxia pm1 Forms: - Medication Reconciliation Form pm1 - SBAR form pm1 Signatures: Dispatcher [employer] EDWY Nikki Alonzo RN RN Darrick Meek MD MD [facility] Daren Multani RN RN em Lora Parra RN RN Phoenix Payton PA PA [id number] Page, Corey, PA PA cp Phi Rivera, JONATHAN ARTIFICIAL INSEMINATION TECHNICIAN pm1 Corrections: (The following items were deleted from the chart) 01/25 17:04 16:33 Chest Single View+RAD.RAD.BRZ ordered. EDWY EDWY 19:37 18:51 Telemetry/MedSurg (Inpatient) pm1 19:37 18:51 pm1 01/26 17:37 01/25 19:37 [facility] ER HOLD dw 01/26 17:37 08 19:37 ERHOLD- [facility]
--- NOTE | 2021-01-25 19:02 | P.HP ---
Certification for Inpatient Patient admitted to: Inpatient With expected LOS: >2 Midnights Patient will require the following post-hospital care: None Practitioner: I am a practitioner with admitting privileges, knowledge of patient current condition, hospital course, and medical plan of care. Services: Services provided to patient in accordance with Admission requirements found in Title 42 Section 412.3 of the Code of Federal Regulations Patient History Date of Service: 01/25/21 Primary Care Provider: Out of town Reason for admission: COVID-19 pneumonia History of Present Illness: 60-year-old -[place]ian female with history of carpal tunnel, thyroid goiter, hypertension presents emergency department for shortness of breath. Patient tested positive for Covid on 01/22/2021 with increasing shortness of breath since then. Patient was evaluated in the emergency department, labs were significant for sodium 135 creatinine 1.32 GFR 49 glucose 130 ferritin 936 C- reactive protein 84.7. Patient 88% on room air, tolerating nasal cannula O2 3 L at this time well, ED provider is admit for further evaluation and management. - Past Medical/Surgical History -: Carpal tunnel -: Thyroid goiter -: Hypertension -: Left knee surgery Psychosocial/ Personal History: Unemployed, lives with daughter - Family History Father -: Hypertension Mother -: Hypertension - Social History Smoking Status: Never smoker Alcohol use: No CD- Drugs: No Caffeine use: Yes Place of Residence: Home Review of Systems 10-point ROS is otherwise unremarkable General: Weakness Respiratory: Cough, Shortness of Breath Physical Examination - Physical Exam General: Alert, In no apparent distress, Oriented x3 HEENT: Atraumatic, PERRLA, Mucous membr. moist/pink, EOMI, Sclerae nonicteric Neck: Supple, 2+ carotid pulse no bruit, No LAD, Without JVD or thyroid abnormality Respiratory: Normal air movement, Diminished Cardiovascular: Regular rate/rhythm, Normal S1 S2 Gastrointestinal: Normal bowel sounds, No tenderness Musculoskeletal: No tenderness Integumentary: No rashes Neurological: Normal gait, Normal speech, Normal strength at 5/5 x4 extr, Normal tone, Normal affect Lymphatics: No axilla or inguinal lymphadenopathy - Studies Laboratory Data (last 24 hrs) 01/25/21 16:37: PT 12.0, INR 1.04 01/25/21 16:37: WBC 9.10, Hgb 14.0, Hct 42.5, Plt Count 206 01/25/21 16:37: Sodium 135 L, Potassium 4.0, BUN 37 H, Creatinine 1.32 H, Glucose 130 H, Magnesium 2.7 H, Total Bilirubin 0.3, AST 25, ALT 27, Alkaline Phosphatase 94 Assessment and Plan - Plan Assessment: Acute hypoxic respiratory failure secondary to COVID-19 pneumonia Acute kidney injury Thyroid goiter Hypertension Plan: Acute hypoxic respiratory failure secondary to COVID-19 pneumonia: Continue with IV steroids, oral supplements, supplemental oxygen as needed, daily room air saturations, room air saturations for home O2. As needed cough medications. Pulmonology consult in place anticipate patient will be discharged on home oxygen in the next 24 to 48 hours if she remains stable. Acute kidney injury: Patient likely with underlying CKD 3, patient given 500 cc bolus in the ER, will check renal function with morning labs. Consult nephrology if necessary. Thyroid goiter: Stable, not on any medications will check thyroid panel with morning labs. Hypertension: Continue medications, adjust as necessary. DVT PPX: Lovenox Code status: Full Discharge Plan: Home Plan to discharge in: 48 Hours - Advance Directives Does patient have a Living Will: No Does patient have a Durable POA for Healthcare: No - Code Status/Comfort Care Code Status Assessed: Yes (Full code) Critical Care: No Time Spent Managing Pts Care (In Minutes): 55
[2021-01-25] MEDS ORDERED: NA CHLORIDE 0.9% 500 ML ONE (19:15)
[2021-01-25] MEDS ORDERED: METHYLPREDNISOLONE 125 MG INJ ONE ×2 (19:15→21:44)
[2021-01-25] MEDS ORDERED: ACETAMINOPHEN 500 MG TAB PO PRN (21:10)
[2021-01-25] MEDS ORDERED: ONDANSETRON 4 MG/2 ML VIAL IV PRN (21:10)
[2021-01-25] MEDS: ASCORBIC ACID 500 MG TABLET PO SCH (21:10)
[2021-01-25] MEDS: METHYLPREDNISOLONE 40 MG INJ IV SCH (21:10)
[2021-01-25] MEDS ORDERED: IVERMECTIN 3 MG TABLET PO SCH (21:10)
[2021-01-25] MEDS: BENZONATATE 100 MG CAP PO PRN (21:37)
[2021-01-25] MEDS ORDERED: BENZONATATE 100 MG CAP PO ONE (21:45)
[2021-01-25] MEDS ORDERED: ASCORBIC ACID 500 MG TABLET ONE (21:45)
[2021-01-25] MEDS ORDERED: ALBUTEROL INHALER 60 PUFF/8 GM IH PRN (22:07)
[2021-01-25] MEDS ORDERED: lisinopriL 10 MG TAB ONE (22:42)
[2021-01-25] MEDS ORDERED: hydroCHLOROthiazide 25 MG TAB ONE (22:43)
[2021-01-26 05:52] LABS: Absolute Lymphocytes (CBC) 1.1 K/uL (0.7-4.9); Basophils % 0.1 % (0-1.3); Hematocrit 38.3 % (36.0-45.0); Lymphocytes % 22.1 % (15.3-44.8); MPV 7.7 fL (7.6-11.3); RBC Red Blood Cell Count 4.33 M/uL (3.86-4.86)
[2021-01-26 06:16] LABS: Albumin 3.3 g/dL (3.4-5.0); Bilirubin Total 0.2 mg/dL (0.2-1.0); C-Reactive Protein 76.6 mg/L (<3.00); Ferritin 944.7 ng/mL (8-388); Potassium 4.1 mmol/L (3.5-5.1); Protein, Total 8.1 g/dL (6.4-8.2); Thyroid Stimulating Hormone 0.138 uIU/mL (0.360-3.740)
--- NOTE | 2021-01-26 06:22 | P.PN ---
Subjective Date of Service: 01/26/21 Primary Care Provider: Out of town Chief Complaint: COVID-19 pneumonia Subjective: Other (Patient stable on 3 L per nasal cannula.) Physical Examination - Vital Signs Temperature: 98.8 F Blood Pressure: 123/86 Pulse: 80 Respirations: 20 Pulse Ox (%): 96 - Studies Laboratory Data (last 24 hrs) 01/25/21 16:37: PT 12.0, INR 1.04 01/25/21 16:37: WBC 9.10, Hgb 14.0, Hct 42.5, Plt Count 206 01/25/21 16:37: Sodium 135 L, Potassium 4.0, BUN 37 H, Creatinine 1.32 H, Glucose 130 H, Magnesium 2.7 H, Total Bilirubin 0.3, AST 25, ALT 27, Alkaline Phosphatase 94 Assessment & Plan Discharge Plan: Home Plan to discharge in: 48 Hours Physician Review Additional Text: Physical exam: General: Alert, In no apparent distress, Oriented x3 HEENT: Atraumatic, PERRLA, Mucous membr. moist/pink, EOMI, Sclerae nonicteric Neck: Supple, 2+ carotid pulse no bruit, No LAD, Without JVD or thyroid abnormality Respiratory: Diminished bilateral. Currently on 3 L per nasal cannula. Cardiovascular: Regular rate/rhythm, Normal S1 S2 Gastrointestinal: Normal bowel sounds, No tenderness Musculoskeletal: No tenderness Integumentary: No rashes Neurological: Normal gait, Normal speech, Normal strength at 5/5 x4 extr, Normal tone, Normal affect Lymphatics: No axilla or inguinal lymphadenopathy Impression: Acute hypoxic respiratory failure secondary to COVID-19 pneumonia Acute kidney injury Thyroid goiter Hypertension Plan: Acute hypoxic respiratory failure secondary to COVID-19 pneumonia: Continue with IV steroids, oral supplements. Continue to wean off oxygen to maintain sats above 93%. Continue Lovenox for DVT prophylaxis. Encourage incentive spirometer, proning. Encourage ambulation. Pulmonology consulted. Await recommendations. Provide medication for cough. Likely home in the next 24 hours with home oxygen. Acute kidney injury: Patient given IV fluids in the emergency room. Encourage oral intake. Will monitor renal function. Need to consider holding hydrochlorothiazide. Thyroid goiter: Overall stable. Monitor closely. Hypertension: Continue lisinopril and hydrochlorothiazide. Will monitor renal function.. DVT prophylaxis: Lovenox Advanced care [id number] minutes: Home at discharge CODE STATUS: Full code Time Spent Managing Pts Care (In Minutes): 55
[2021-01-26 08:35] LABS: Urine Appearance CLEAR (Clear); Urine Bilirubin NEGATIVE (Negative); Urine Blood TRACE (Negative); Urine Color YELLOW (Yellow); Urine Glucose NEGATIVE (Negative); Urine Protein 1+ (Negative); Urine Urobilinogen 0.2 mg/dL (0.2-1.0); Urine pH 5.5 (5.0-7.0)
[2021-01-26 08:44] LABS: Urine Bacteria 20-50 /HPF (<20); Urine Microscopic Reflex ORDER UMIC
[2021-01-26] MEDS: ENOXAPARIN 40 MG/0.4 ML SQ SCH (09:00)
[2021-01-26] MEDS: METHYLPREDNISOLONE 40 MG INJ IV SCH ×3 (09:00→20:33)
[2021-01-26] MEDS: hydroCHLOROthiazide 25 MG TAB PO SCH ×2 (09:00→20:33)
[2021-01-26] MEDS: VITAMIN D 1000 UNIT TAB PO SCH (09:40)
[2021-01-26] MEDS: ZINC SULFATE 220 MG CAP PO SCH (09:40)
[2021-01-26] MEDS: IVERMECTIN 3 MG TABLET PO SCH (09:40)
[2021-01-26] MEDS: lisinopriL 10 MG TAB PO SCH ×2 (09:40→20:33)
[2021-01-26] MEDS: ASPIRIN EC 81 MG TAB PO SCH (09:41)
[2021-01-26] MEDS: ASCORBIC ACID 500 MG TABLET PO SCH ×4 (09:41→20:33)
[2021-01-26] MEDS: THIAMINE HCL 100 MG TABLET PO SCH (09:41)
[2021-01-26] MEDS ORDERED: ASPIRIN EC 81 MG TAB PO ONE (09:51)
[2021-01-26] MEDS ORDERED: ENOXAPARIN 40 MG/0.4 ML SQ ONE (09:52)
[2021-01-26] MEDS ORDERED: ZINC SULFATE 220 MG CAP ONE (09:53)
[2021-01-26] MEDS ORDERED: VITAMIN D 1000 UNIT TAB ONE (09:53)
[2021-01-26] MEDS ORDERED: METHYLPREDNISOLONE 125 MG INJ ONE ×2 (09:53→11:46)
[2021-01-26] MEDS ORDERED: THIAMINE HCL 100 MG TABLET ONE (09:53)
[2021-01-26] MEDS ORDERED: lisinopriL 10 MG TAB ONE (09:54)
[2021-01-26] MEDS ORDERED: ASCORBIC ACID 500 MG TABLET ONE ×3 (09:54→17:17)
--- NOTE | 2021-01-26 11:19 | EKG ---
Test Date: 2021-01-25 Test Time: 19:15:15 [employer] Representatives: MEASUREMENT RESULTS: Intervals: Rate: 87 CT: 124 QRSD: 76 QT: 370 QTc: 445 [place]: P: 49 CT: 124 QRS: -7 T: 239 INTERPRETIVE STATEMENTS: Normal sinus rhythm Possible Left atrial enlargement Left ventricular hypertrophy Nonspecific ST and T wave abnormality Abnormal ECG Compared to ECG 09/12/2018 03:19:42 ST (T wave) deviation now present T-wave abnormality no longer present Possible ischemia no longer present Electronically Signed On 01-26-21 11:16:29 CDT by Edgar Hauser
[2021-01-26] MEDS ORDERED: hydroCHLOROthiazide 25 MG TAB ONE (11:53)
[2021-01-26] MEDS ORDERED: BENZONATATE 100 MG CAP PO ONE (11:54)
[2021-01-26] MEDS: BENZONATATE 100 MG CAP PO PRN (13:06)
--- NOTE | 2021-01-26 13:12 | P.CNS ---
Date of Consult: 01/26/21 (TV) Reason for Consult: COVID pneumonia Primary Care Provider: Out of town Chief Complaint: COVID-19 pneumonia History of Present Illness: AGe 60 AW resp failure from COVID/ Hypoxic Allergies Penicillins Allergy (Verified 01/25/21 21:04) Rash Home Medications: Albuterol Inhaler [Ventolin Inhaler*] 1 puff PO Q4HR 01/25/21 Diclofenac Sodium 75 mg PO BID 01/25/21 Lisinopril/Hydrochlorothiazide [Lisinopril-Hctz 10-12.5 mg Tab] 1 tab PO BID 01/25/21 - Past Medical/Surgical History -: Carpal tunnel -: Thyroid goiter -: Hypertension -: Left knee surgery Psychosocial/ Personal History: Unemployed, lives with daughter - Family History Father Medical History: Hypertension Mother Medical History: Hypertension - Social History Alcohol use: No CD- Drugs: No Caffeine use: Yes Place of Residence: Home Review of Systems General: Weakness Respiratory: Shortness of Breath Physical Examination Temp Pulse Resp BP Pulse Ox 98.6 F 85 20 136/89 95 01/26/21 08:10 01/26/21 09:40 01/26/21 08:10 01/26/21 09:40 01/26/21 08:10 General: Alert, Oriented x3, Mild distress Laboratory Data (last 24 hrs) 01/25/21 16:37: PT 12.0, INR 1.04 01/25/21 16:37: WBC 9.10, Hgb 14.0, Hct 42.5, Plt Count 206 01/25/21 16:37: Sodium 135 L, Potassium 4.0, BUN 37 H, Creatinine 1.32 H, Glucose 130 H, Magnesium 2.7 H, Total Bilirubin 0.3, AST 25, ALT 27, Alkaline Phosphatase 94 - Problems (1) COVID-19 Current Visit: Yes Status: Acute Plan: Age Aw COVID penumonia/LAbs and mes reviewed/ CT COVID
[2021-01-27 03:54] LABS: Absolute Lymphocytes (CBC) 1.5 K/uL (0.7-4.9); Basophils % 0.1 % (0-1.3); Hematocrit 38.7 % (36.0-45.0); Lymphocytes % 15.3 % (15.3-44.8); MPV 7.7 fL (7.6-11.3); RBC Red Blood Cell Count 4.38 M/uL (3.86-4.86)
[2021-01-27 04:26] LABS: Albumin 3.3 g/dL (3.4-5.0); Bilirubin Total 0.2 mg/dL (0.2-1.0); C-Reactive Protein 35.1 mg/L (<3.00); Ferritin 1170.2 ng/mL (8-388); Protein, Total 7.8 g/dL (6.4-8.2)
[2021-01-27] MEDS: ENOXAPARIN 40 MG/0.4 ML SQ SCH (08:33)
[2021-01-27] MEDS: ASPIRIN EC 81 MG TAB PO SCH (08:33)
[2021-01-27] MEDS: hydroCHLOROthiazide 25 MG TAB PO SCH ×2 (08:34→21:28)
[2021-01-27] MEDS: VITAMIN D 1000 UNIT TAB PO SCH (08:35)
[2021-01-27] MEDS: THIAMINE HCL 100 MG TABLET PO SCH (08:35)
[2021-01-27] MEDS: ZINC SULFATE 220 MG CAP PO SCH (08:35)
[2021-01-27] MEDS: METHYLPREDNISOLONE 40 MG INJ IV SCH ×3 (08:35→21:27)
[2021-01-27] MEDS: lisinopriL 10 MG TAB PO SCH ×2 (08:35→21:27)
[2021-01-27] MEDS: ASCORBIC ACID 500 MG TABLET PO SCH ×4 (08:35→21:27)
--- NOTE | 2021-01-27 08:48 | RAD REPORT ---
EXAM DESCRIPTION: RAD - Chest Single View - 01/27/2021 4:56 am CLINICAL HISTORY: follow up COVID Chest pain. COMPARISON: Chest Pa And Lat (2 Views) dated 01/25/2021; Chest Single View dated 02/26/2018 FINDINGS: Portable technique limits examination quality. Extensive bilateral pulmonary opacities have mildly worsened since the comparative study. The heart i s mildly enlarged in size. No displaced fractures. IMPRESSION: Mild worsening in lung aeration is seen since comparative study.
[2021-01-27] MEDS ORDERED: BARICITINIB 2 MG TABLET PO SCH (09:00)
--- NOTE | 2021-01-27 12:36 | P.PN ---
Subjective Date of Service: 01/27/21 Primary Care Provider: Out of town Chief Complaint: COVID-19 pneumonia Subjective: Other (Patient requiring more oxygen this morning.) Physical Examination - Vital Signs Temperature: 97.3 F Blood Pressure: 125/73 Pulse: 84 Respirations: 28 Pulse Ox (%): 91 Assessment & Plan Discharge Plan: Home Plan to discharge in: Greater than 2 days Physician Review Additional Text: Physical exam: General: Alert, In no apparent distress, Oriented x3 HEENT: Atraumatic, PERRLA, Mucous membr. moist/pink, EOMI, Sclerae nonicteric Neck: Supple, 2+ carotid pulse no bruit, No LAD, Without JVD or thyroid abnormality Respiratory: Currently on 6 L per nasal cannula. No significant distress noted Cardiovascular: Regular rate/rhythm, Normal S1 S2 Gastrointestinal: Normal bowel sounds, No tenderness Musculoskeletal: No tenderness Integumentary: No rashes Neurological: Normal gait, Normal speech, Normal strength at 5/5 x4 extr, Normal tone, Normal affect Lymphatics: No axilla or inguinal lymphadenopathy Impression: Acute hypoxic respiratory failure secondary to COVID-19 pneumonia Acute kidney injury Thyroid goiter Hypertension Plan: Acute hypoxic respiratory failure secondary to COVID-19 pneumonia: Patient requiring more oxygen at this time. We will continue to wean off. Continue IV steroids and supplementation. Continue Lovenox for DVT prophylaxis. Continue to monitor CRP and ferritin. Spoke with pharmacy. Patient not a candidate for baricitinib as her CRP is improved. Encourage incentive spirometer. Encourage proning. Encourage ambulation. Will discuss with pulmonology for further recommendation. Acute kidney injury: Overall improved. Renal function back to baseline. Encourage oral intake. Thyroid goiter: Overall stable. Monitor closely. Hypertension: Continue lisinopril and hydrochlorothiazide. Will monitor renal function.. DVT prophylaxis: Lovenox Advanced care [id number] minutes: Home at discharge CODE STATUS: Full code Time Spent Managing Pts Care (In Minutes): 55
[2021-01-27] MEDS: BENZONATATE 100 MG CAP PO PRN (21:27)
--- NOTE | 2021-01-28 06:16 | P.PN ---
Subjective Date of Service: 01/28/21 Primary Care Provider: Out of town Chief Complaint: COVID-19 pneumonia Subjective: Other (Patient requiring more oxygen. Currently on nonrebreather this morning) Physical Examination - Vital Signs Temperature: 96.9 F Blood Pressure: 128/63 Pulse: 71 Respirations: 24 Pulse Ox (%): 91 Assessment & Plan Discharge Plan: Home Plan to discharge in: Greater than 2 days Physician Review Additional Text: COVID: Positive Initial CXR: COMPARISON: Chest Pa And Lat (2 Views) dated 01/25/2021; Chest Single View dated 02/26/2018 FINDINGS: Portable technique limits examination quality. Extensive bilateral pulmonary opacities have mildly worsened since the comparative study. The heart is mildly enlarged in size. No displaced fractures. IMPRESSION: Mild worsening in lung aeration is seen since comparative study. Follow up CXR: COMPARISON: Chest Single View dated 02/26/2018 FINDINGS: Moderately severe bilateral pulmonary opacities are present, greater on the left. This is most compatible with underlying COVID-19 infection. The heart is normal in size. No displaced fractures. Physical exam: General: Alert, In no apparent distress, Oriented x3 HEENT: Atraumatic, PERRLA, Mucous membr. moist/pink, EOMI, Sclerae nonicteric Neck: Supple, 2+ carotid pulse no bruit, No LAD, Without JVD or thyroid abnormality Respiratory: Patient on nonrebreather Cardiovascular: Regular rate/rhythm, Normal S1 S2 Gastrointestinal: Normal bowel sounds, No tenderness Musculoskeletal: No tenderness Integumentary: No rashes Neurological: Normal gait, Normal speech, Normal strength at 5/5 x4 extr, Normal tone, Normal affect Lymphatics: No axilla or inguinal lymphadenopathy Impression: Acute hypoxic respiratory failure secondary to COVID-19 pneumonia Acute kidney injury Thyroid goiter Hypertension Plan: Acute hypoxic respiratory failure secondary to COVID-19 pneumonia: Patient required more oxygen at this time. Currently on nonrebreather. Previously on 6 L per nasal cannula. Continue IV steroids and supplementation. Due to her increase oxygen requirement will start baricitinib. Continue to monitor CRP and ferritin. Encourage ambulation, incentive spirometer, proning. May need to order physical therapy. Await recommendations by pulmonology. Recheck chest x- ray tomorrow. Continue to monitor lab closely. Reassess tomorrow Acute kidney injury: Overall improved. Renal function back to baseline. Encourage oral intake. Thyroid goiter: Overall stable. Monitor closely. Hypertension: Continue lisinopril and hydrochlorothiazide. Will monitor renal function.. DVT prophylaxis: Lovenox Advanced care [id number] minutes: Home at discharge CODE STATUS: Full code Time Spent Managing Pts Care (In Minutes): 55
[2021-01-28 07:06] LABS: Absolute Lymphocytes (CBC) 1.1 K/uL (0.7-4.9); Basophils % 0.1 % (0-1.3); Hematocrit 39.6 % (36.0-45.0); Lymphocytes % 8.8 % (15.3-44.8); MPV 7.6 fL (7.6-11.3); RBC Red Blood Cell Count 4.45 M/uL (3.86-4.86)
[2021-01-28 07:16] LABS: Albumin 3.3 g/dL (3.4-5.0); Bilirubin Total 0.3 mg/dL (0.2-1.0); C-Reactive Protein 16.4 mg/L (<3.00); Ferritin 997.8 ng/mL (8-388); Potassium 3.8 mmol/L (3.5-5.1); Protein, Total 7.9 g/dL (6.4-8.2)
[2021-01-28] MEDS: ENOXAPARIN 40 MG/0.4 ML SQ SCH (08:31)
[2021-01-28] MEDS: hydroCHLOROthiazide 25 MG TAB PO SCH ×2 (08:31→20:25)
[2021-01-28] MEDS: THIAMINE HCL 100 MG TABLET PO SCH (08:31)
[2021-01-28] MEDS: METHYLPREDNISOLONE 40 MG INJ IV SCH ×3 (08:32→20:26)
[2021-01-28] MEDS: VITAMIN D 1000 UNIT TAB PO SCH (08:32)
[2021-01-28] MEDS: ZINC SULFATE 220 MG CAP PO SCH (08:32)
[2021-01-28] MEDS: ASCORBIC ACID 500 MG TABLET PO SCH ×4 (08:33→20:24)
[2021-01-28] MEDS: lisinopriL 10 MG TAB PO SCH ×2 (08:33→20:26)
[2021-01-28] MEDS: IVERMECTIN 3 MG TABLET PO SCH (08:33)
[2021-01-28] MEDS: ASPIRIN EC 81 MG TAB PO SCH (08:33)
[2021-01-28] MEDS ORDERED: POTASSIUM CL SA 10 MEQ TAB PO ONE (12:00)
[2021-01-28 14:05] LABS: Blood Morphology Comment NOT SEEN (NOT SEEN); Platelet Estimate ADEQ; White Blood Cell Scan OK (OK)
[2021-01-28] MEDS: BENZONATATE 100 MG CAP PO PRN (20:24)
[2021-01-28] MEDS: METOPROLOL TARTRATE 5 MG/5 ML INJ IV SCH (23:54)
[2021-01-29] MEDS ORDERED: METOPROLOL TARTRATE 5 MG/5 ML INJ IV ONE (00:11)
[2021-01-29] MEDS: METOPROLOL TARTRATE 5 MG/5 ML INJ IV SCH ×2 (00:12→00:32)
[2021-01-29] MEDS: METOPROLOL TAR 50 MG TAB PO SCH ×4 (00:58→19:33)
[2021-01-29 06:21] LABS: Absolute Lymphocytes (CBC) 1.4 K/uL (0.7-4.9); Basophils % 0.1 % (0-1.3); Hematocrit 43.1 % (36.0-45.0); Lymphocytes % 8.3 % (15.3-44.8); MPV 7.5 fL (7.6-11.3); RBC Red Blood Cell Count 4.87 M/uL (3.86-4.86)
--- NOTE | 2021-01-29 06:21 | P.PN ---
Subjective Date of Service: 01/29/21 Primary Care Provider: Out of town Chief Complaint: COVID-19 pneumonia Subjective: Other (Patient reports improvement. Patient went into A. fib yesterday. Patient stable on Lopressor and Eliquis.) Physical Examination - Vital Signs Temperature: 97.8 F Blood Pressure: 134/95 Pulse: 97 Respirations: 18 Pulse Ox (%): 95 Assessment & Plan Discharge Plan: Home Plan to discharge in: Greater than 2 days Physician Review Additional Text: COVID: Positive Initial CXR: COMPARISON: Chest Pa And Lat (2 Views) dated 01/25/2021; Chest Single View dated 02/26/2018 FINDINGS: Portable technique limits examination quality. Extensive bilateral pulmonary opacities have mildly worsened since the comparative study. The heart is mildly enlarged in size. No displaced fractures. IMPRESSION: Mild worsening in lung aeration is seen since comparative study. Follow up CXR: COMPARISON: January 28 FINDINGS: Mild improvement in the moderate bilateral pulmonary opacities. Heart is normal size IMPRESSION: Mild improvement in the moderate bilateral pneumonia Physical exam: General: Alert, In no apparent distress, Oriented x3 HEENT: Atraumatic, PERRLA, Mucous membr. moist/pink, EOMI, Sclerae nonicteric Neck: Supple, 2+ carotid pulse no bruit, No LAD, Without JVD or thyroid abnormal ity Respiratory: Patient on high flow oxygen Cardiovascular: A. fib rate better controlled Gastrointestinal: Normal bowel sounds, No tenderness Musculoskeletal: No tenderness Integumentary: No rashes Neurological: Normal gait, Normal speech, Normal strength at 5/5 x4 extr, Normal tone, Normal affect Lymphatics: No axilla or inguinal lymphadenopathy Impression: Acute hypoxic respiratory failure secondary to COVID-19 pneumonia Acute kidney injury New onset atrial fibrillation Thyroid goiter Hypertension Plan: Acute hypoxic respiratory failure secondary to COVID-19 pneumonia: Patient required more oxygen at this time. Had episode of atrial fibrillation last night. Now stable with medication. Cardiology consulted. Continue with current oxygen. Continue to wean off. Continue IV steroids and supplementation. Due to her increase oxygen requirement will start baricitinib, will check to see if the patient is approved for protocol. Continue to monitor CRP and ferritin. Encourage ambulation, incentive spirometer, proning. May need to order physical therapy. Await recommendations by pulmonology. Continue to reassess Acute kidney injury: Overall improved. Renal function back to baseline. Encourage oral intake. New onset atrial fibrillation: Case discussed with cardiology. Lopressor increased to 3 times a day. Continue Eliquis. Will monitor closely. Echo to be obtained. Thyroid goiter: Overall stable. Monitor closely. Hypertension: Continue lisinopril and hydrochlorothiazide. Will monitor renal function.. DVT prophylaxis: Lovenox Advanced care [id number] minutes: Home at discharge CODE STATUS: Full code Time Spent Managing Pts Care (In Minutes): 55
[2021-01-29 06:35] LABS: Albumin 3.2 g/dL (3.4-5.0); Bilirubin Total 0.4 mg/dL (0.2-1.0); C-Reactive Protein 12.6 mg/L (<3.00); Ferritin 1082.9 ng/mL (8-388); Magnesium 2.9 mg/dL (1.8-2.4); Potassium 4.1 mmol/L (3.5-5.1)
--- NOTE | 2021-01-29 07:14 | RAD REPORT ---
EXAM DESCRIPTION: Michelle Single View01/29/2021 4:59 am CLINICAL HISTORY: Shortness of breath COMPARISON: January 28 FINDINGS: Mild improvement in the moderate bilateral pulmonary opacities. Heart is normal size IMPRESSION: Mild improvement in the moderate bilateral pneumonia
[2021-01-29] MEDS: THIAMINE HCL 100 MG TABLET PO SCH (07:58)
[2021-01-29] MEDS: APIXABAN 5 MG TABLET PO SCH ×2 (07:59→19:33)
[2021-01-29] MEDS: ASCORBIC ACID 500 MG TABLET PO SCH ×4 (07:59→19:32)
[2021-01-29] MEDS: ASPIRIN EC 81 MG TAB PO SCH (07:59)
[2021-01-29] MEDS: VITAMIN D 1000 UNIT TAB PO SCH (07:59)
[2021-01-29] MEDS: METHYLPREDNISOLONE 40 MG INJ IV SCH ×3 (07:59→19:34)
[2021-01-29] MEDS: ZINC SULFATE 220 MG CAP PO SCH (07:59)
[2021-01-29] MEDS: lisinopriL 10 MG TAB PO SCH ×2 (08:30→19:33)
[2021-01-29] MEDS: hydroCHLOROthiazide 25 MG TAB PO SCH ×2 (08:30→19:32)
[2021-01-29] MEDS ORDERED: BARICITINIB 2 MG TABLET PO SCH (09:00)
[2021-01-29 09:13] LABS: Platelet Estimate ADEQ; White Blood Cell Scan OK (OK)
[2021-01-29 09:14] LABS: Blood Morphology Comment NOT SEEN (NOT SEEN)
--- NOTE | 2021-01-29 10:49 | EKG ---
Test Date: 2021-01-28 Test Time: 23:28:38 [place]: RT [place] MEASUREMENT RESULTS: Intervals: Rate: 138 [place]: QRSD: 86 QT: 316 QTc: 478 [place]: P: [place]: QRS: -4 T: 210 INTERPRETIVE STATEMENTS: Atrial fibrillation with rapid ventricular response Minimal voltage criteria for LVH, may be normal variant ST & T wave abnormality, consider inferolateral ischemia or digitalis effect Abnormal ECG Compared to ECG 01/25/2021 19:15:15 Possible ischemia now present Sinus rhythm no longer present ST (T wave) deviation still present Electronically Signed On 01-29-21 10:48:09 CDT by Edgar Hauser
[2021-01-29] MEDS ORDERED: DIGOXIN 0.25 MG/ML AMP IV ONE (11:07)
[2021-01-30] MEDS ORDERED: HYDRALAZINE HCL 20 MG/ML VIAL IV ONE (00:19)
[2021-01-30] MEDS ORDERED: HYDRALAZINE HCL 20 MG/ML VIAL ONE (00:56)
--- NOTE | 2021-01-30 06:17 | P.PN ---
Subjective Date of Service: 01/30/21 Primary Care Provider: Out of town Chief Complaint: COVID-19 pneumonia Subjective: Improving (Patient appears improved. Currently on 8 to 10 L per oxygen) Physical Examination - Vital Signs Temperature: 97.7 F Blood Pressure: 144/90 Pulse: 85 Respirations: 20 Pulse Ox (%): 88 Assessment & Plan Discharge Plan: Home Plan to discharge in: Greater than 2 days Physician Review Additional Text: COVID: Positive Initial CXR: COMPARISON: Chest Pa And Lat (2 Views) dated 01/25/2021; Chest Single View dated 02/26/2018 FINDINGS: Portable technique limits examination quality. Extensive bilateral pulmonary opacities have mildly worsened since the comparative study. The heart is mildly enlarged in size. No displaced fractures. IMPRESSION: Mild worsening in lung aeration is seen since comparative study. Follow up CXR: COMPARISON: January 28 FINDINGS: Mild improvement in the moderate bilateral pulmonary opacities. Heart is normal size IMPRESSION: Mild improvement in the moderate bilateral pneumonia Physical exam: General: Alert, In no apparent distress, Oriented x3 HEENT: Atraumatic, PERRLA, Mucous membr. moist/pink, EOMI, Sclerae nonicteric Neck: Supple, 2+ carotid pulse no bruit, No LAD, Without JVD or thyroid abnormality Respiratory: Patient on 8 L per oxygen Cardiovascular: Normal sinus rhythm Gastrointestinal: Normal bowel sounds, No tenderness Musculoskeletal: No tenderness Integumentary: No rashes Neurological: Normal gait, Normal speech, Normal strength at 5/5 x4 extr, Normal tone, Normal affect Lymphatics: No axilla or inguinal lymphadenopathy Impression: Acute hypoxic respiratory failure secondary to COVID-19 pneumonia Acute kidney injury New onset atrial fibrillation Thyroid goiter Hypertension Plan: Acute hypoxic respiratory failure secondary to COVID-19 pneumonia: Patient currently on 8L/min. Case discussed with pulmonology. Will decrease IV steroids. Continue with supplementation. Change to wean off oxygen. Patient now in sinus rhythm. Continue with metoprolol and Eliquis. Pulmonology added Levaquin to cover for possible opportunistic infection. Encourage ambulation, incentive spirometer and proning. Order physical therapy to ambulate. Will monitor c losely. Anticipate continued improvement. Acute kidney injury: Overall improved. Renal function back to baseline. Encourage oral intake. New onset atrial fibrillation: Continue metoprolol, Eliquis. Patient now in sinus rhythm Thyroid goiter: Overall stable. Monitor closely. Hypertension: Continue metoprolol, lisinopril and hydrochlorothiazide DVT prophylaxis: Letitia Advanced care [id number] minutes: Home at discharge CODE STATUS: Full code Time Spent Managing Pts Care (In Minutes): 55
[2021-01-30 06:47] LABS: Absolute Lymphocytes (CBC) 1.5 K/uL (0.7-4.9); Basophils % 0.3 % (0-1.3); Hematocrit 44.1 % (36.0-45.0); Lymphocytes % 8.3 % (15.3-44.8); MPV 7.8 fL (7.6-11.3); RBC Red Blood Cell Count 4.97 M/uL (3.86-4.86)
[2021-01-30 07:38] LABS: Albumin 3.5 g/dL (3.4-5.0); Bilirubin Total 0.5 mg/dL (0.2-1.0); C-Reactive Protein 10.2 mg/L (<3.00); Ferritin 923.6 ng/mL (8-388); Magnesium 2.9 mg/dL (1.8-2.4); Potassium 3.9 mmol/L (3.5-5.1); Protein, Total 8.2 g/dL (6.4-8.2)
[2021-01-30] MEDS: ASCORBIC ACID 500 MG TABLET PO SCH ×4 (08:29→20:42)
[2021-01-30] MEDS: THIAMINE HCL 100 MG TABLET PO SCH (08:29)
[2021-01-30] MEDS: ZINC SULFATE 220 MG CAP PO SCH (08:30)
[2021-01-30] MEDS: VITAMIN D 1000 UNIT TAB PO SCH (08:30)
[2021-01-30] MEDS: APIXABAN 5 MG TABLET PO SCH ×2 (08:30→20:43)
[2021-01-30] MEDS: ASPIRIN EC 81 MG TAB PO SCH (08:30)
[2021-01-30] MEDS: METHYLPREDNISOLONE 40 MG INJ IV SCH ×3 (08:30→20:43)
[2021-01-30] MEDS: hydroCHLOROthiazide 25 MG TAB PO SCH ×2 (09:04→20:42)
[2021-01-30] MEDS: lisinopriL 10 MG TAB PO SCH ×2 (09:05→20:43)
[2021-01-30] MEDS: METOPROLOL TAR 50 MG TAB PO SCH ×3 (09:05→20:43)
--- NOTE | 2021-01-30 10:49 | P.PN ---
Subjective Date of Service: 01/30/21 Primary Care Provider: Out of town Chief Complaint: COVID-19 pneumonia Doign well now new complaints Review of Systems is unable to be obtained General: Weakness Respiratory: Shortness of Breath Physical Examination - Vital Signs Temperature: 97.8 F Blood Pressure: 148/98 Pulse: 90 Respirations: 27 Pulse Ox (%): 95 - Physical Exam General: Alert, Oriented x3, Cooperative Assessment & Plan - Problems (Diagnosis) (1) COVID-19 Current Visit: Yes Status: Acute Plan: Aw covid penumonia/ WBC elevated add Rocephin/B culture/ALert and responsive/ Advised to increase fluid intake
[2021-01-30] MEDS: levoFLOXacin 500 MG TAB PO SCH (11:27)
[2021-01-30] MEDS ORDERED: POTASSIUM CL SA 10 MEQ TAB PO ONE (12:00)
--- NOTE | 2021-01-31 06:16 | P.PN ---
Subjective Date of Service: 01/31/21 Primary Care Provider: Out of town Chief Complaint: COVID-19 pneumonia Subjective: Improving Physical Examination - Vital Signs Temperature: 99.1 F Blood Pressure: 141/87 Pulse: 76 Respirations: 20 Pulse Ox (%): 95 Assessment & Plan Discharge Plan: Home Plan to discharge in: 72 Hours Physician Review Additional Text: COVID: Positive Initial CXR: COMPARISON: Chest Pa And Lat (2 Views) dated 01/25/2021; Chest Single View dated 02/26/2018 FINDINGS: Portable technique limits examination quality. Extensive bilateral pulmonary opacities have mildly worsened since the comparative study. The heart is mildly enlarged in size. No displaced fractures. IMPRESSION: Mild worsening in lung aeration is seen since comparative study. Follow up CXR: COMPARISON: Chest Single View dated 01/29/2021; Chest Single View dated 01/27/2021; Chest Pa And Lat (2 Views) dated 01/25/2021; Chest Single View dated 02/26/2018 FINDINGS: Bilateral interstitial airspace disease which in a similar distribution but does appears slightly better. The heart size is within normal limits.No acute osseous abnormality. No significant pleural effusions or pneumothorax. IMPRESSION: Slightly improved bilateral airspace disease compatible with multifocal pneumonia. Physical exam: General: Alert, In no apparent distress, Oriented x3 HEENT: Atraumatic, PERRLA, Mucous membr. moist/pink, EOMI, Sclerae nonicteric Neck: Supple, 2+ carotid pulse no bruit, No LAD, Without JVD or thyroid abnormality Respiratory: Patient previously on 12 L currently on 10 L. Patient breathing improved. Cardiovascular: Normal sinus rhythm Gastrointestinal: Normal bowel sounds, No tenderness Musculoskeletal: No tenderness Integumentary: No rashes Neurological: Normal gait, Normal speech, Normal strength at 5/5 x4 extr, Normal tone, Normal affect Lymphatics: No axilla or inguinal lymphadenopathy Impression: Acute hypoxic respiratory failure secondary to COVID-19 pneumonia Acute kidney injury New onset atrial fibrillation Thyroid goiter Hypertension Plan: Acute hypoxic respiratory failure secondary to COVID-19 pneumonia: Clinically patient has improved. Patient down from 12 L to 10 L. Continue IV steroids and supplementation. Continue to wean off oxygen to maintain sats above 93%. Encourage ambulation, incentive spirometer and proning. Currently on Levaquin due to leukocytosis. Heart rate stable and remains in normal sinus rhythm. Anticipate continued improvement. I will turn the service over to the hospitalist team tomorrow. I will go over plan of care with him. Acute kidney injury: Overall improved. Renal function back to baseline. Encourage oral intake. New onset atrial fibrillation: Continue metoprolol, Eliquis. Patient now in sinus rhythm Thyroid goiter: Overall stable. Monitor closely. Hypertension: Continue metoprolol, lisinopril and hydrochlorothiazide DVT prophylaxis: Eliquis Advanced care [id number] minutes: Home at discharge CODE STATUS: Full code Time Spent Managing Pts Care (In Minutes): 55
--- NOTE | 2021-01-31 07:43 | RAD REPORT ---
EXAM DESCRIPTION: RAD - Chest Single View - 01/31/2021 5:48 am CLINICAL HISTORY: Follow-up Covid COMPARISON: Chest Single View dated 01/29/2021; Chest Single View dated 01/27/2021; Chest Pa And Lat (2 Views) dated 01/25/2021; Chest Single View dated 02/26/2018 FINDINGS: Bilateral interstitial airspace disease which in a similar distribution but does appears s lightly better. The heart size is within normal limits.No acute osseous abnormality. No significant p leural effusions or pneumothorax. IMPRESSION: Slightly improved bilateral airspace disease compatible with multifocal pneumonia.
--- NOTE | 2021-01-31 08:04 | EKG ---
Test Date: 2021-01-29 Test Time: 14:31:00 Field Nurse Case Manager: KULWINDER MEASUREMENT RESULTS: Intervals: Rate: 62 ID: [id number] QRSD: 90 QT: 392 QTc: 397 [place]: P: 61 ID: [id number] QRS: 5 T: 234 INTERPRETIVE STATEMENTS: Normal sinus rhythm Moderate voltage criteria for LVH, may be normal variant ST & T wave abnormality, consider inferior ischemia ST & T wave abnormality, consider anterolateral ischemia Abnormal ECG Compared to ECG 01/28/2021 23:28:38 Atrial fibrillation no longer present ST (T wave) deviation still present Possible ischemia still present Electronically Signed On 01-31-21 08:00:38 CDT by Edgar Hauser
[2021-01-31] MEDS: VITAMIN D 1000 UNIT TAB PO SCH (08:07)
[2021-01-31] MEDS: ZINC SULFATE 220 MG CAP PO SCH (08:08)
[2021-01-31] MEDS: APIXABAN 5 MG TABLET PO SCH ×2 (08:08→20:43)
[2021-01-31] MEDS: ASCORBIC ACID 500 MG TABLET PO SCH ×4 (08:08→20:42)
[2021-01-31] MEDS: levoFLOXacin 500 MG TAB PO SCH (08:08)
[2021-01-31] MEDS: THIAMINE HCL 100 MG TABLET PO SCH (08:08)
[2021-01-31] MEDS: ASPIRIN EC 81 MG TAB PO SCH (08:08)
[2021-01-31] MEDS: METHYLPREDNISOLONE 40 MG INJ IV SCH ×3 (08:09→20:43)
[2021-01-31] MEDS: hydroCHLOROthiazide 25 MG TAB PO SCH ×2 (08:10→20:42)
[2021-01-31] MEDS: lisinopriL 10 MG TAB PO SCH ×2 (08:12→20:42)
[2021-01-31] MEDS: METOPROLOL TAR 50 MG TAB PO SCH ×3 (08:12→20:42)
[2021-01-31 09:15] LABS: Albumin 3.4 g/dL (3.4-5.0); Bilirubin Total 0.7 mg/dL (0.2-1.0); C-Reactive Protein 6.95 mg/L (<3.00); Ferritin 896.7 ng/mL (8-388); Potassium 4.5 mmol/L (3.5-5.1)
--- NOTE | 2021-01-31 09:18 | PN ---
Subjective: I saw the patient yesterday because of atrial fibrillation. She is here for CHRISTOPHER lozoya. She received 1 dose of digoxin, was placed on metoprolol. She is already on Eliquis. She is in sinus rhythm today at a rate of 60, O2 saturation of 96% on high-flow oxygen delivery, O2 saturati on is adequate. Blood pressure is adequate. Echocardiogram is pending. I will continue her present regimen from an atrial fibrillation standpoint. Hopefully, this is just temporary. Nevertheless, laura munoz will keep an eye on that as she stays in the hospital. I will see her in the office as an outpatie nt when she goes home. IGLESIA/TRISTIAN Voice ID: [id number] Report ID: [id number]
[2021-01-31 09:23] LABS: Absolute Lymphocytes (CBC) 2.1 K/uL (0.7-4.9); Basophils % 0.1 % (0-1.3); Hematocrit 43.8 % (36.0-45.0); Lymphocytes % 13.2 % (15.3-44.8); MPV 8.4 fL (7.6-11.3); RBC Red Blood Cell Count 4.92 M/uL (3.86-4.86)
--- NOTE | 2021-01-31 10:21 | CON ---
Date of Consultation: 01/29/2021 Reason For Consultation: Atrial fibrillation with rapid ventricular response. History Of Present Illness: Ms. Coy is a 60-year-old black woman, who came in initially with COV ID pneumonia. On admission, she had an EKG showing sinus rhythm with left ventricular hypertrophy. Her chest x-ray showed severe bilateral pulmonary opacities consistent with COVID infection. She was being treated for her COVID when she developed atrial fibrillation and I was consulted. Allergies: HER ALLERGIES INCLUDE PENICILLIN. Review of Systems: Negative. Social History: Negative. Family History: Noncontributory. Medications At Home: Included lisinopril with hydrochlorothiazide, Ventolin inhaler, and diclofenac. Past Medical History: Positive for COPD, hypertension, and arthritis. Physical Examination: Vital Signs: When I saw her, she was in atrial fibrillation her rate . She was afebrile. Blood pressure is adequate. O2 saturation was normal. HEENT: Negative. Neck: Supple with no bruit. Chest: Clear to auscultation and percussion. Cardiac: Revealed an irregularly irregular rhythm and rate. No murmurs, gallops, or rubs. Abdomen: Benign. Extremities: Revealed no clubbing, cyanosis, or edema. Diagnostic Data: White count was 14717. Creatinine was . Glucose was 174. She has eleva kirsty AST, ALT, ferritin, and C-reactive protein all consistent with COVID pneumonia. Impression And Plan: 1.Paroxysmal atrial fibrillation. 2.COVID pneumonia. 3.Hypertension. 4.Chronic obstructive pulmonary disease. The patient is on Eliquis, hydralazine, steroids, zinc, antibiotics. She is on lisinopril and hydroc hlorothiazide. She is getting potassium supplemented. We will treat her with metoprolol, given IV d igoxin x1 dose and continue the Eliquis. Hopefully, she will convert, if she will not convert, we wi ll consider amiodarone. She needs to have an echocardiogram done. IGLESIA/TRISTIAN Voice ID: [id number] Report ID: [id number]
[2021-02-01] MEDS: BENZONATATE 100 MG CAP PO PRN (02:29)
--- NOTE | 2021-02-01 08:29 | ECHO ---
HEIGHT: 5 ft 1 in WEIGHT: 138 lb 3.2 oz DATE OF STUDY: 01/29/[address]: John Slaughter NP 2-DIMENSIONAL: YES M.MODE: YES DOPPLER: YES COLOR FLOW: YES TDS: YES PORTABLE: DEFINITY: BUBBLE STUDY: DIAGNOSIS: ATRIAL FIBRILLATION WITH RAPID VENTRICULAR RESPONSE CARDIAC HISTORY: CATHERIZATION: SURGERY: PROSTHETIC VALVE: PACEMAKER: MEASUREMENTS (cm) DIASTOLIC (NORMALS) SYSTOLIC (NORMALS) IVSd 1.1 (0.6-1.2) LA Diam (1.9-4.0) LVEF 67% LVIDd 3.8 (3.5-5.7) LVIDs 2.4 (2.0-3.5) %FS 36% LVPWd 1.0 (0.6-1.2) Ao Diam 2.3 (2.0-3.7) 2 DIMENSIONAL ASSESSMENT: RIGHT ATRIUM: NORMAL LEFT ATRIUM: NORMAL RIGHT VENTRICLE: NORMAL LEFT VENTRICLE: NORMAL TRICUSPID VALVE: NORMAL MITRAL VALVE: NORMAL PULMONIC VALVE: NORMAL AORTIC VALVE: NORMAL PERICARDIAL EFFUSION: NONE AORTIC ROOT: NORMAL LEFT VENTRICULAR WALL MOTION: NORMAL DOPPLER/COLOR FLOW: NORMAL COMMENTS: NORMAL 2-DIMENSIONAL ECHOCARDIOGRAM WITH DOPPLER. NO WALL MOTION ABNORMALITY. NO EFFUSION. TECHNOLOGIST: KEI FIGUEROA
[2021-02-01] MEDS: lisinopriL 10 MG TAB PO SCH ×2 (09:00→21:11)
[2021-02-01] MEDS: METOPROLOL TAR 50 MG TAB PO SCH ×3 (09:00→21:12)
[2021-02-01] MEDS: hydroCHLOROthiazide 25 MG TAB PO SCH ×2 (09:00→21:13)
[2021-02-01] MEDS: ASPIRIN EC 81 MG TAB PO SCH (09:12)
[2021-02-01] MEDS: THIAMINE HCL 100 MG TABLET PO SCH (09:12)
[2021-02-01] MEDS: APIXABAN 5 MG TABLET PO SCH ×2 (09:12→21:12)
[2021-02-01] MEDS: VITAMIN D 1000 UNIT TAB PO SCH (09:12)
[2021-02-01] MEDS: levoFLOXacin 500 MG TAB PO SCH (09:13)
[2021-02-01] MEDS: ASCORBIC ACID 500 MG TABLET PO SCH ×4 (09:13→21:14)
[2021-02-01] MEDS: ZINC SULFATE 220 MG CAP PO SCH (09:13)
[2021-02-01] MEDS: METHYLPREDNISOLONE 40 MG INJ IV SCH ×2 (09:13→13:21)
[2021-02-01] MEDS: METHYLPREDNISOLONE 125 MG INJ IV SCH ×2 (14:00→21:14)
--- NOTE | 2021-02-01 20:53 | P.PN ---
Subjective Date of Service: 02/01/21 Primary Care Provider: Out of town Chief Complaint: COVID-19 pneumonia Improving poss DC am Review of Systems Respiratory: Shortness of Breath Physical Examination - Vital Signs Temperature: 97.6 F Blood Pressure: 103/64 Pulse: 89 Respirations: 28 Pulse Ox (%): 95 - Physical Exam General: Alert, In no apparent distress, Oriented x3, Cooperative Assessment & Plan - Problems (Diagnosis) (1) COVID-19 Current Visit: Yes Status: Acute Plan: Doign well poss DC home am/ cultures neg
[2021-02-01] MEDS: ENSURE ENLIVE 237 ML CAN PO SCH (21:00)
[2021-02-02] MEDS: VITAMIN D 1000 UNIT TAB PO SCH (08:40)
[2021-02-02] MEDS: ZINC SULFATE 220 MG CAP PO SCH (08:40)
[2021-02-02] MEDS: THIAMINE HCL 100 MG TABLET PO SCH (08:40)
[2021-02-02] MEDS: ASPIRIN EC 81 MG TAB PO SCH (08:41)
[2021-02-02] MEDS: APIXABAN 5 MG TABLET PO SCH ×2 (08:41→21:01)
[2021-02-02] MEDS: METHYLPREDNISOLONE 125 MG INJ IV SCH ×3 (08:42→21:00)
[2021-02-02] MEDS: ASCORBIC ACID 500 MG TABLET PO SCH ×4 (08:42→20:59)
[2021-02-02] MEDS: hydroCHLOROthiazide 25 MG TAB PO SCH ×2 (08:45→20:59)
[2021-02-02] MEDS: lisinopriL 10 MG TAB PO SCH ×2 (08:46→21:00)
[2021-02-02] MEDS: METOPROLOL TAR 50 MG TAB PO SCH ×3 (08:46→20:59)
[2021-02-02] MEDS: ENSURE ENLIVE 237 ML CAN PO SCH ×2 (08:47→21:00)
[2021-02-02] MEDS: levoFLOXacin 500 MG TAB PO SCH (08:47)
[2021-02-03] MEDS: VITAMIN D 1000 UNIT TAB PO SCH (08:57)
[2021-02-03] MEDS: THIAMINE HCL 100 MG TABLET PO SCH (08:57)
[2021-02-03] MEDS: ASPIRIN EC 81 MG TAB PO SCH (08:57)
[2021-02-03] MEDS ORDERED: NA CHLORIDE 0.9% 250 ML IV ONE (08:57)
[2021-02-03] MEDS: METHYLPREDNISOLONE 125 MG INJ IV SCH ×3 (08:58→21:23)
[2021-02-03] MEDS: ASCORBIC ACID 500 MG TABLET PO SCH ×4 (08:58→21:22)
[2021-02-03] MEDS: ZINC SULFATE 220 MG CAP PO SCH (08:58)
[2021-02-03] MEDS: APIXABAN 5 MG TABLET PO SCH ×2 (08:58→21:22)
[2021-02-03] MEDS: levoFLOXacin 500 MG TAB PO SCH (08:58)
[2021-02-03] MEDS: ENSURE ENLIVE 237 ML CAN PO SCH ×2 (08:58→21:00)
[2021-02-03] MEDS: hydroCHLOROthiazide 25 MG TAB PO SCH ×2 (09:00→21:00)
[2021-02-03] MEDS: METOPROLOL TAR 50 MG TAB PO SCH ×3 (09:00→21:42)
[2021-02-03] MEDS: lisinopriL 10 MG TAB PO SCH ×2 (09:00→21:45)
[2021-02-03 11:44] LABS: Absolute Lymphocytes (CBC) 1.6 K/uL (0.7-4.9); Basophils % 0.1 % (0-1.3); Hematocrit 42.7 % (36.0-45.0); Lymphocytes % 8.2 % (15.3-44.8); MPV 7.7 fL (7.6-11.3); RBC Red Blood Cell Count 4.77 M/uL (3.86-4.86)
[2021-02-03 12:03] LABS: Magnesium 2.9 mg/dL (1.8-2.4); Potassium 4.5 mmol/L (3.5-5.1)
--- NOTE | 2021-02-03 15:44 | P.PN ---
Subjective Date of Service: 02/01/21 Patient clinically doing well with no new complaints. Symptoms are improving. Continue weaning down off the oxygen Review of Systems 10-point ROS is otherwise unremarkable Physical Examination - Vital Signs Temperature: 97.8 F Blood Pressure: 107/62 Pulse: 96 Respirations: 32 Pulse Ox (%): 89 - Physical Exam General: Alert, In no apparent distress, Oriented x3 Respiratory: Diminished Cardiovascular: Regular rate/rhythm, Normal S1 S2, No murmurs Gastrointestinal: Normal bowel sounds, Soft and benign, Non-distended, No tenderness Musculoskeletal: No clubbing, No swelling - Studies Medications List Reviewed: Yes Assessment & Plan - Problems (Diagnosis) (1) Pneumonia due to COVID-19 virus Current Visit: Yes Status: Acute - Plan 1. Continue with IV steroids 2. Monitor inflammatory markers 3. Repeat chest x-ray 4. O2 per protocol 5. Pulmonary consultation appreciated 6. Continue with albuterol inhaler therapy; also supportive care 7. Monitor LFTs 8. GI and DVT prophylaxis Discharge Plan: Home Plan to discharge in: Greater than 2 days - Advance Directives Does patient have a Living Will: No Does patient have a Durable POA for Healthcare: No - Code Status/Comfort Care Code Status Assessed: Yes Code Status: Full Code Critical Care: No Time Spent Managing PTS Care (In Minutes): 35
--- NOTE | 2021-02-03 15:46 | P.PN ---
Date of Service: 02/03/21 Subjective Patient's appetite is diminished. Have encourage patient to start eating a little more. Increase IV fluids. Patient uremic possibly steroids or dehydration. Review of Systems 10-point ROS is otherwise unremarkable Physical Examination - Vital Signs reviewed - Physical Exam General: Alert, In no apparent distress, Oriented x3 Respiratory: Clear bilaterally Cardiovascular: Regular rate/rhythm, Normal S1 S2, No murmurs Gastrointestinal: Normal bowel sounds, Soft and benign, Non-distended, No tenderness Musculoskeletal: No clubbing, No swelling Assessment & Plan - Problems (Diagnosis) (1) Pneumonia due to COVID-19 virus Current Visit: Yes Status: Acute - Plan Continue with POC as mentioned below: 1. Continue with IV steroids 2. Monitor inflammatory markers 3. Repeat chest x-ray 4. O2 per protocol 5. Continue with IV fluids 6. Continue with albuterol inhaler therapy; also supportive care 7. GI and DVT prophylaxis
--- NOTE | 2021-02-03 15:46 | P.PN ---
Date of Service: 02/02/21 Subjective Patient with no new complaints. Patient clinically doing better. Review of Systems 10-point ROS is otherwise unremarkable Physical Examination - Vital Signs reviewed - Physical Exam General: Alert, In no apparent distress, Oriented x3 Respiratory: Diminished Cardiovascular: Regular rate/rhythm, Normal S1 S2, No murmurs Gastrointestinal: Normal bowel sounds, Soft and benign, Non-distended, No tenderness Musculoskeletal: No clubbing, No swelling Assessment & Plan - Problems (Diagnosis) (1) Pneumonia due to COVID-19 virus Current Visit: Yes Status: Acute - Plan Continue with POC as mentioned below: 1. Continue with IV steroids 2. Monitor inflammatory markers 3. Repeat chest x-ray 4. O2 per protocol 5. Pulmonary consultation appreciated 6. Continue with albuterol inhaler therapy; also supportive care 7. Monitor LFTs 8. GI and DVT prophylaxis
[2021-02-04 07:15] LABS: Absolute Lymphocytes (CBC) 1.7 K/uL (0.7-4.9); Basophils % 0.1 % (0-1.3); Hematocrit 39.1 % (36.0-45.0); Lymphocytes % 8.9 % (15.3-44.8); MPV 7.8 fL (7.6-11.3); RBC Red Blood Cell Count 4.41 M/uL (3.86-4.86)
[2021-02-04 07:39] LABS: ALT/SGPT 42 U/L (12-78); AST/SGOT 7 U/L (15-37); Albumin 2.9 g/dL (3.4-5.0); Alkaline Phosphatase 65 U/L (45-117); BUN Blood Urea Nitrogen 54 mg/dL (7-18); Bicarbonate 29 mmol/L (21-32); Bilirubin Total 0.6 mg/dL (0.2-1.0); Ferritin 689.1 ng/mL (8-388); Glucose Level 202 mg/dL (74-106); Magnesium 2.7 mg/dL (1.8-2.4); Potassium 4.5 mmol/L (3.5-5.1); Protein, Total 6.6 g/dL (6.4-8.2); Sodium Level 138 mmol/L (136-145)
[2021-02-04 07:40] LABS: C-Reactive Protein < 2.90 mg/L (<3.00)
[2021-02-04] MEDS: hydroCHLOROthiazide 25 MG TAB PO SCH ×2 (09:00→21:00)
[2021-02-04] MEDS: APIXABAN 5 MG TABLET PO SCH ×2 (09:00→21:07)
[2021-02-04] MEDS: THIAMINE HCL 100 MG TABLET PO SCH (09:23)
[2021-02-04] MEDS: ASPIRIN EC 81 MG TAB PO SCH (09:23)
[2021-02-04] MEDS: levoFLOXacin 500 MG TAB PO SCH (09:23)
[2021-02-04] MEDS: METOPROLOL TAR 50 MG TAB PO SCH ×3 (09:25→21:00)
[2021-02-04] MEDS: lisinopriL 10 MG TAB PO SCH ×2 (09:25→21:00)
[2021-02-04] MEDS: ZINC SULFATE 220 MG CAP PO SCH (09:25)
[2021-02-04] MEDS: ENSURE ENLIVE 237 ML CAN PO SCH ×2 (09:25→21:00)
[2021-02-04] MEDS: METHYLPREDNISOLONE 125 MG INJ IV SCH ×3 (09:26→21:07)
[2021-02-04] MEDS: ASCORBIC ACID 500 MG TABLET PO SCH ×4 (09:27→21:07)
[2021-02-04] MEDS: VITAMIN D 1000 UNIT TAB PO SCH (09:29)
[2021-02-05 06:19] LABS: Absolute Lymphocytes (CBC) 1.5 K/uL (0.7-4.9); Basophils % 0.3 % (0-1.3); Hematocrit 38.4 % (36.0-45.0); Lymphocytes % 7.7 % (15.3-44.8); MPV 8.1 fL (7.6-11.3)
[2021-02-05 06:37] LABS: ALT/SGPT 45 U/L (12-78); AST/SGOT 9 U/L (15-37); Albumin 2.8 g/dL (3.4-5.0); Alkaline Phosphatase 64 U/L (45-117); BUN Blood Urea Nitrogen 58 mg/dL (7-18); Bicarbonate 29 mmol/L (21-32); Bilirubin Total 0.5 mg/dL (0.2-1.0); Glucose Level 229 mg/dL (74-106); Magnesium 2.6 mg/dL (1.8-2.4); Potassium 4.6 mmol/L (3.5-5.1); Protein, Total 6.1 g/dL (6.4-8.2); Sodium Level 139 mmol/L (136-145)
[2021-02-05 06:38] LABS: C-Reactive Protein < 2.90 mg/L (<3.00)
[2021-02-05 08:33] LABS: Blood Morphology Comment NOT SEEN (NOT SEEN); Platelet Estimate ADEQ
[2021-02-05] MEDS: hydroCHLOROthiazide 25 MG TAB PO SCH (09:00)
[2021-02-05] MEDS: ENSURE ENLIVE 237 ML CAN PO SCH ×2 (09:00→21:00)
[2021-02-05] MEDS: lisinopriL 10 MG TAB PO SCH (09:00)
[2021-02-05] MEDS: ASPIRIN EC 81 MG TAB PO SCH (10:18)
[2021-02-05] MEDS: METHYLPREDNISOLONE 125 MG INJ IV SCH ×3 (10:18→21:34)
[2021-02-05] MEDS: VITAMIN D 1000 UNIT TAB PO SCH (10:19)
[2021-02-05] MEDS: ZINC SULFATE 220 MG CAP PO SCH (10:20)
[2021-02-05] MEDS: levoFLOXacin 500 MG TAB PO SCH (10:20)
[2021-02-05] MEDS: THIAMINE HCL 100 MG TABLET PO SCH (10:20)
[2021-02-05] MEDS: ASCORBIC ACID 500 MG TABLET PO SCH ×4 (10:20→21:35)
[2021-02-05] MEDS: APIXABAN 5 MG TABLET PO SCH ×2 (10:21→21:35)
[2021-02-05] MEDS: METOPROLOL TAR 50 MG TAB PO SCH ×3 (10:48→21:34)
[2021-02-05] MEDS ORDERED: NA CHLORIDE 0.9% 1,000 ML IV SCH (18:00)
[2021-02-06 05:48] LABS: Absolute Lymphocytes (CBC) 1.3 K/uL (0.7-4.9); Basophils % 0.1 % (0-1.3); Hematocrit 36.9 % (36.0-45.0); Lymphocytes % 8.1 % (15.3-44.8); RBC Red Blood Cell Count 4.15 M/uL (3.86-4.86)
[2021-02-06 06:04] LABS: ALT/SGPT 46 U/L (12-78); AST/SGOT 8 U/L (15-37); Albumin 2.7 g/dL (3.4-5.0); Alkaline Phosphatase 59 U/L (45-117); BUN Blood Urea Nitrogen 44 mg/dL (7-18); Bicarbonate 29 mmol/L (21-32); Bilirubin Total 0.7 mg/dL (0.2-1.0); Ferritin 729.8 ng/mL (8-388); Glucose Level 207 mg/dL (74-106); Magnesium 2.4 mg/dL (1.8-2.4); Potassium 5.1 mmol/L (3.5-5.1); Protein, Total 5.9 g/dL (6.4-8.2); Sodium Level 140 mmol/L (136-145)
[2021-02-06 06:07] LABS: C-Reactive Protein < 2.90 mg/L (<3.00)
--- NOTE | 2021-02-06 07:27 | P.PN ---
Date of Service: 02/04/21 Subjective Patient's oxygenation is down to 5 L. oxygen saturations are in the low 90s. Hopefully we can get her the to go home in the morning. Review of Systems 10-point ROS is otherwise unremarkable Physical Examination - Vital Signs reviewed - Physical Exam General: Alert, In no apparent distress, Oriented x3 Respiratory: Clear bilaterally Cardiovascular: Regular rate/rhythm, Normal S1 S2, No murmurs Gastrointestinal: Normal bowel sounds, Soft and benign, Non-distended, No tenderness Musculoskeletal: No clubbing, No swelling Assessment & Plan - Problems (Diagnosis) (1) Pneumonia due to COVID-19 virus Current Visit: Yes Status: Acute - Plan Continue with POC as mentioned below: 1. Continue with IV steroids 2. Monitor inflammatory markers 3. Repeat chest x-ray 4. O2 per protocol 5. Continue with IV fluids 6. Continue with albuterol inhaler therapy; also supportive care 7. GI and DVT prophylaxis
--- NOTE | 2021-02-06 07:29 | P.PN ---
Date of Service: 02/05/21 Subjective When I came to see patient this morning they had turn her oxygen up to 8 L. spoke to nursing and requested that we give patient a chance to worker oxygen back up. Will try to get her weaned down. Currently I have placed on 6 L. She is satting in the low 90s. Have encourage patient to continue working on the incentive spirometer. If we can get her down to 4 L and under we may be able to work on discharging. She looks to be a little dehydrated so I will give Versed some gentle hydration. Review of Systems 10-point ROS is otherwise unremarkable Physical Examination - Vital Signs reviewed - Physical Exam General: Alert, In no apparent distress, Oriented x3 Respiratory: Clear bilaterally Cardiovascular: Regular rate/rhythm, Normal S1 S2, No murmurs Gastrointestinal: Normal bowel sounds, Soft and benign, Non-distended, No tenderness Musculoskeletal: No clubbing, No swelling Assessment & Plan - Problems (Diagnosis) (1) Pneumonia due to COVID-19 virus Current Visit: Yes Status: Acute - Plan Continue with POC as mentioned below: 1. Continue with IV steroids; gentle hydration 2. Monitor inflammatory markers 3. Repeat chest x-ray 4. O2 per protocol 5. Continue with IV fluids 6. Continue with albuterol inhaler therapy; also supportive care 7. GI and DVT prophylaxis
[2021-02-06] MEDS: ENSURE ENLIVE 237 ML CAN PO SCH ×2 (09:00→22:00)
[2021-02-06] MEDS: ASPIRIN EC 81 MG TAB PO SCH (10:45)
[2021-02-06] MEDS: APIXABAN 5 MG TABLET PO SCH ×2 (10:45→21:59)
[2021-02-06] MEDS: METOPROLOL TAR 50 MG TAB PO SCH ×3 (10:45→22:01)
[2021-02-06] MEDS: ASCORBIC ACID 500 MG TABLET PO SCH ×4 (10:46→22:02)
[2021-02-06] MEDS: THIAMINE HCL 100 MG TABLET PO SCH (10:46)
[2021-02-06] MEDS: VITAMIN D 1000 UNIT TAB PO SCH (10:46)
[2021-02-06] MEDS: METHYLPREDNISOLONE 125 MG INJ IV SCH ×3 (10:46→21:59)
[2021-02-06] MEDS: ZINC SULFATE 220 MG CAP PO SCH (10:46)
--- NOTE | 2021-02-06 11:33 | P.PN ---
Subjective Date of Service: 02/06/21 Primary Care Provider: Out of town Chief Complaint: COVID-19 pneumonia Subjective: No new changes (Seen today, feels fine Comfortable on nasal cannula O2 Denies any cough, chest tightness or shortness of breath States she is ambulating in the room well) Physical Examination - Vital Signs Temperature: 97.8 F Blood Pressure: 124/80 Pulse: 75 Respirations: 28 Pulse Ox (%): 86 - Physical Exam General: Alert, Oriented x3, Cooperative HEENT: Atraumatic, Normocephalic, PERRLA Respiratory: Normal air movement, Diminished Cardiovascular: Normal pulses, Regular rate/rhythm, Normal S1 S2 Gastrointestinal: Normal bowel sounds, Soft and benign, Non-distended Musculoskeletal: No clubbing, No swelling, No contractures Neurological: Normal gait, Normal speech, Normal strength at 5/5 x4 extr - Studies Medications List Reviewed: Yes Assessment And Plan Plan to discharge in: 72 Hours Physician Review: Patient Assessed, Agree with Above Assessment and Plan Physician Review Additional Text: COVID: Positive Impression: Acute hypoxic respiratory failure secondary to COVID-19 pneumonia Acute kidney injuryimproved New onset atrial fibrillation Thyroid goiter Hypertension Plan: Slowly worsening O2 saturation since the last 48 hours with low sats despite 10 L nasal cannula O2 We DC IVF Much improved CRP but marginally elevated ferritin, continue to monitor Continue IV steroids Continue to wean O2 as tolerated Continue incentive spirometry as well as self proning advised Increase exercise and ambulation also advised Continue anticoagulation with Eliquis Continue insulin sliding scale with Accu-Cheks monitoring Thyroid goiter: Overall stable. Monitor closely. Hypertension: Continue metoprolol, lisinopril and hydrochlorothiazide DVT prophylaxis: Eliquis Advanced care [id number] minutes: Home at discharge CODE STATUS: Full code Critical Care: No
[2021-02-06] MEDS ORDERED: FUROSEMIDE 40 MG/4 ML VIAL IV ONE (11:34)
--- NOTE | 2021-02-07 06:16 | P.PN ---
Subjective Date of Service: 02/07/21 Primary Care Provider: Out of town Chief Complaint: COVID-19 pneumonia Subjective: Improving (slowly improving. on 15 L/m) Physical Examination - Vital Signs Temperature: 96.9 F Blood Pressure: 137/89 Pulse: 77 Respirations: 18 Pulse Ox (%): 92 - Studies Medications List Reviewed: Yes Assessment & Plan Discharge Plan: LTAC Plan to discharge in: Greater than 2 days Physician Review Additional Text: COVID: Positive Initial CXR: COMPARISON: Chest Pa And Lat (2 Views) dated 01/25/2021; Chest Single View dated 02/26/2018 FINDINGS: Portable technique limits examination quality. Extensive bilateral pulmonary opacities have mildly worsened since the comparative study. The heart is mildly enlarged in size. No displaced fractures. IMPRESSION: Mild worsening in lung aeration is seen since comparative study. Follow up CXR: COMPARISON: Chest Single View dated 01/29/2021; Chest Single View dated 01/27/2021; Chest Pa And Lat (2 Views) dated 01/25/2021; Chest Single View dated 02/26/2018 FINDINGS: Bilateral interstitial airspace disease which in a similar distributi on but does appears slightly better. The heart size is within normal limits.No acute osseous abnormality. No significant pleural effusions or pneumothorax. IMPRESSION: Slightly improved bilateral airspace disease compatible with multifocal pneumonia. Physical exam: General: Alert, In no apparent distress, Oriented x3 HEENT: Atraumatic, PERRLA, Mucous membr. moist/pink, EOMI, Sclerae nonicteric Neck: Supple, 2+ carotid pulse no bruit, No LAD, Without JVD or thyroid abnormality Respiratory: Breathing better. 15 liter per min. Cardiovascular: Normal sinus rhythm Gastrointestinal: Normal bowel sounds, No tenderness Musculoskeletal: No tenderness Integumentary: No rashes Neurological: Normal gait, Normal speech, Normal strength at 5/5 x4 extr, Normal tone, Normal affect Lymphatics: No axilla or inguinal lymphadenopathy Impression: Acute hypoxic respiratory failure secondary to COVID-19 pneumonia Acute kidney injury New onset atrial fibrillation Thyroid goiter Hypertension Plan: Acute hypoxic respiratory failure secondary to COVID-19 pneumonia: Clinically improved. Currently on 15 L. Continue IV steroids. Continue to wean off oxygen to maintain sats above 93%. Encourage ambulation, incentive spirometer and proning. Case discussed with pulmonology. Will start Diflucan and doxycycline due to leukocytosis. Discussed the possibility of long-term acute care facility placement due to her slow recovery. Patient agreeable. Will discuss with social media marketing specialist to help arrange for this. Acute kidney injury: Overall improved. Renal function back to baseline. Encourage oral intake. New onset atrial fibrillation: Continue metoprolol, Eliquis. Patient now in sinus rhythm Thyroid goiter: Overall stable. Monitor closely. Hypertension: Continue metoprolol, lisinopril and hydrochlorothiazide DVT prophylaxis: Eliquis Advanced care minutes: Long-term acute care facility placement CODE STATUS: Full code Time Spent Managing Pts Care (In Minutes): 55
[2021-02-07] MEDS: METHYLPREDNISOLONE 125 MG INJ IV SCH ×2 (09:01→13:45)
[2021-02-07] MEDS: APIXABAN 5 MG TABLET PO SCH ×2 (09:02→21:39)
[2021-02-07] MEDS: METOPROLOL TAR 50 MG TAB PO SCH ×3 (09:02→21:39)
[2021-02-07] MEDS: THIAMINE HCL 100 MG TABLET PO SCH (09:02)
[2021-02-07] MEDS: ASCORBIC ACID 500 MG TABLET PO SCH ×4 (09:02→21:39)
[2021-02-07] MEDS: ASPIRIN EC 81 MG TAB PO SCH (09:02)
[2021-02-07] MEDS: BENZONATATE 100 MG CAP PO PRN (09:02)
[2021-02-07] MEDS: VITAMIN D 1000 UNIT TAB PO SCH (09:02)
[2021-02-07] MEDS: ZINC SULFATE 220 MG CAP PO SCH (09:02)
[2021-02-07] MEDS: ENSURE ENLIVE 237 ML CAN PO SCH ×2 (09:03→21:40)
[2021-02-07 09:45] LABS: Absolute Lymphocytes (CBC) 2.4 K/uL (0.7-4.9); Basophils % 0.1 % (0-1.3); Hematocrit 42.5 % (36.0-45.0); Lymphocytes % 10.1 % (15.3-44.8); RBC Red Blood Cell Count 4.82 M/uL (3.86-4.86)
--- NOTE | 2021-02-07 10:04 | RAD REPORT ---
EXAM DESCRIPTION: RAD - Chest Single View - 02/07/2021 9:53 am CLINICAL HISTORY: follow up covid COMPARISON: Chest Single View dated 01/31/2021; Chest Single View dated 01/29/2021; Chest Single View da kirsty 01/27/2021; Chest Pa And Lat (2 Views) dated 01/25/2021 FINDINGS: Mild to moderate bilateral patchy airspace disease which is similar to 01/31/2021 per The heart size is within normal limits.No acute osseous abnormality. No significant pleural effusions or pneumothorax. IMPRESSION: Bilateral airspace disease which is mild to moderate in severity is similar to 01/31/2021.
[2021-02-07 10:09] LABS: ALT/SGPT 54 U/L (12-78); AST/SGOT 9 U/L (15-37); Albumin 3.2 g/dL (3.4-5.0); Alkaline Phosphatase 72 U/L (45-117); BUN Blood Urea Nitrogen 45 mg/dL (7-18); Bicarbonate 32 mmol/L (21-32); Bilirubin Total 0.8 mg/dL (0.2-1.0); Glucose Level 221 mg/dL (74-106); Magnesium 2.3 mg/dL (1.8-2.4); Potassium 4.8 mmol/L (3.5-5.1); Protein, Total 6.8 g/dL (6.4-8.2); Sodium Level 139 mmol/L (136-145)
[2021-02-07 10:10] LABS: C-Reactive Protein < 2.90 mg/L (<3.00)
[2021-02-07 10:50] LABS: Blood Morphology Comment NOT SEEN (NOT SEEN); Platelet Estimate ADEQ
--- NOTE | 2021-02-07 12:57 | P.PN ---
Subjective Date of Service: 02/07/21 Primary Care Provider: Out of town Chief Complaint: COVID-19 pneumonia Improving doign well Review of Systems Respiratory: Shortness of Breath Physical Examination - Vital Signs Temperature: 97.8 F Blood Pressure: 117/90 Pulse: 77 Respirations: 24 Pulse Ox (%): 90 - Studies Medications List Reviewed: Yes Assessment & Plan - Problems (Diagnosis) (1) COVID-19 Current Visit: Yes Status: Acute Plan: Improving wean down on O2 Physician Review: Patient Assessed, Agree with Above Assessment and Plan
[2021-02-07] MEDS: METHYLPREDNISOLONE 40 MG INJ IV SCH (16:09)
[2021-02-07] MEDS: DOXYCYCLINE 100 MG CAP PO SCH (21:39)
[2021-02-08] MEDS: METHYLPREDNISOLONE 40 MG INJ IV SCH ×3 (02:09→16:01)
[2021-02-08 04:03] LABS: Absolute Lymphocytes (CBC) 1.5 K/uL (0.7-4.9); Basophils % 0.1 % (0-1.3); Hematocrit 38.5 % (36.0-45.0); Lymphocytes % 8.5 % (15.3-44.8); MPV 7.9 fL (7.6-11.3); RBC Red Blood Cell Count 4.33 M/uL (3.86-4.86)
[2021-02-08 04:34] LABS: ALT/SGPT 41 U/L (12-78); AST/SGOT 7 U/L (15-37); Albumin 2.9 g/dL (3.4-5.0); Alkaline Phosphatase 58 U/L (45-117); BUN Blood Urea Nitrogen 42 mg/dL (7-18); Bicarbonate 31 mmol/L (21-32); Bilirubin Total 0.8 mg/dL (0.2-1.0); Ferritin 870.3 ng/mL (8-388); Glucose Level 201 mg/dL (74-106); Magnesium 2.4 mg/dL (1.8-2.4); Potassium 4.8 mmol/L (3.5-5.1); Protein, Total 6.1 g/dL (6.4-8.2); Sodium Level 140 mmol/L (136-145)
[2021-02-08 04:45] LABS: C-Reactive Protein < 2.90 mg/L (<3.00)
--- NOTE | 2021-02-08 06:23 | P.PN ---
Subjective Date of Service: 02/08/21 Primary Care Provider: Out of town Chief Complaint: COVID-19 pneumonia Subjective: Improving, Other (Patient reports improvement. Now down to 10 L per nasal cannula) Physical Examination - Vital Signs Temperature: 97.9 F Blood Pressure: 119/79 Pulse: 67 Respirations: 16 Pulse Ox (%): 91 - Studies Medications List Reviewed: Yes Assessment & Plan Discharge Plan: LTAC Plan to discharge in: 48 Hours Physician Review Additional Text: COVID: Positive, unvaccinated Initial CXR: COMPARISON: Chest Pa And Lat (2 Views) dated 01/25/2021; Chest Single View dated 02/26/2018 FINDINGS: Portable technique limits examination quality. Extensive bilateral pulmonary opacities have mildly worsened since the comparative study. The heart is mildly enlarged in size. No displaced fractures. IMPRESSION: Mild worsening in lung aeration is seen since comparative study. Follow up CXR 02/07/2021: COMPARISON: Chest Single View dated 01/31/2021; Chest Single View dated 01/29/2021; Chest Single View dated 01/27/2021; Chest Pa And Lat (2 Views) dated 01/25/2021 FINDINGS: Mild to moderate bilateral patchy airspace disease which is similar to 01/31/2021 per The heart size is within normal limits.No acute osseous abnormality. No significant pleural effusions or pneumothorax. IMPRESSION: Bilateral airspace disease which is mild to moderate in severity is similar to 01/31/2021. Physical exam: General: Alert, In no apparent distress, Oriented x3 HEENT: Atraumatic, PERRLA, Mucous membr. moist/pink, EOMI, Sclerae nonicteric Neck: Supple, 2+ carotid pulse no bruit, No LAD, Without JVD or thyroid abnormality Respiratory: Breathing has improved. Overall clear. Down to 10 L per nasal cannula Cardiovascular: Normal sinus rhythm Gastrointestinal: Normal bowel sounds, No tenderness Musculoskeletal: No tenderness Integumentary: No rashes Neurological: Normal gait, Normal speech, Normal strength at 5/5 x4 extr, Normal tone, Normal affect Lymphatics: No axilla or inguinal lymphadenopathy Impression: Acute hypoxic respiratory failure secondary to COVID-19 pneumonia, unvaccinated Acute kidney injury New onset atrial fibrillation Thyroid goiter Hypertension Hyperglycemia suspect prediabetes Leukocytosis Plan: Acute hypoxic respiratory failure secondary to COVID-19 pneumonia, unvaccinated: Patient clinically improved. Now down to 10 L per nasal cannula. Continue IV s teroids and supplementation. Decrease IV steroids with continued improvement. CRP and ferritin improved. We will continue to monitor. Continue to wean off oxygen. Maintain sats above 93%. Encourage ambulation, incentive spirometer and proning. Continue with pulmonology recommendation. Continue Diflucan and doxycycline due to leukocytosis which has improved. Continue to pursue long- term acute care facility placement to continue treatment and rehab. Acute kidney injury: Overall improved. Renal function back to baseline. Encourage oral intake. New onset atrial fibrillation: Patient remained stable on metoprolol 50 mg 3 times a day and Eliquis 5 mg 1 pill twice daily. Patient in sinus rhythm. Thyroid goiter: Overall stable. Monitor closely. Hypertension: Patient remains stable on metoprolol 50 mg 1 pill 3 times a day and home medicationlisinopril hydrochlorothiazide daily Hyperglycemia suspect prediabetes: Will check hemoglobin A1c. Consider sliding scale. Leukocytosis: May be related to IV steroids. Overall improved. Now on Diflucan and doxycycline. DVT prophylaxis: Letitia [facility] care [id number] minutes: Long-term acute care facility placement CODE STATUS: Full code Time Spent Managing Pts Care (In Minutes): 55
[2021-02-08] MEDS: APIXABAN 5 MG TABLET PO SCH ×2 (08:31→19:57)
[2021-02-08] MEDS: FLUCONAZOLE 100 MG TAB PO SCH (08:31)
[2021-02-08] MEDS: ASPIRIN EC 81 MG TAB PO SCH (08:31)
[2021-02-08] MEDS: THIAMINE HCL 100 MG TABLET PO SCH (08:31)
[2021-02-08] MEDS: DOXYCYCLINE 100 MG CAP PO SCH ×2 (08:31→19:58)
[2021-02-08] MEDS: VITAMIN D 1000 UNIT TAB PO SCH (08:31)
[2021-02-08] MEDS: BENZONATATE 100 MG CAP PO PRN (08:31)
[2021-02-08] MEDS: ASCORBIC ACID 500 MG TABLET PO SCH ×4 (08:31→19:57)
[2021-02-08] MEDS: ZINC SULFATE 220 MG CAP PO SCH (08:31)
[2021-02-08] MEDS: METOPROLOL TAR 50 MG TAB PO SCH ×3 (08:31→19:57)
[2021-02-08] MEDS: ENSURE ENLIVE 237 ML CAN PO SCH ×2 (08:32→19:57)
[2021-02-09] MEDS: METHYLPREDNISOLONE 40 MG INJ IV SCH ×3 (00:47→19:55)
[2021-02-09] MEDS: BENZONATATE 100 MG CAP PO PRN ×2 (02:31→19:55)
[2021-02-09 03:52] LABS: Absolute Lymphocytes (CBC) 1.2 K/uL (0.7-4.9); Basophils % 0.1 % (0-1.3); Hematocrit 39.1 % (36.0-45.0); Lymphocytes % 6.3 % (15.3-44.8); MPV 7.9 fL (7.6-11.3)
[2021-02-09 04:05] LABS: ALT/SGPT 80 U/L (12-78); AST/SGOT 14 U/L (15-37); Alkaline Phosphatase 64 U/L (45-117); BUN Blood Urea Nitrogen 43 mg/dL (7-18); Bicarbonate 33 mmol/L (21-32); Bilirubin Total 0.9 mg/dL (0.2-1.0); Ferritin 971.9 ng/mL (8-388); Glucose Level 217 mg/dL (74-106); Magnesium 2.4 mg/dL (1.8-2.4); Potassium 4.9 mmol/L (3.5-5.1); Protein, Total 6.2 g/dL (6.4-8.2); Sodium Level 141 mmol/L (136-145)
[2021-02-09 04:07] LABS: C-Reactive Protein < 2.90 mg/L (<3.00)
--- NOTE | 2021-02-09 08:35 | P.PN ---
Subjective Date of Service: 02/09/21 Primary Care Provider: Out of town Chief Complaint: COVID-19 pneumonia Subjective: Improving (Patient continues to improve. Currently on 7 L per nasal cannula.) Physical Examination - Vital Signs Temperature: 97.6 F Blood Pressure: 137/81 Pulse: 77 Respirations: 20 Pulse Ox (%): 92 - Studies Medications List Reviewed: Yes Assessment & Plan Discharge Plan: LTAC Plan to discharge in: 48 Hours Physician Review Additional Text: COVID: Positive, unvaccinated Initial CXR: COMPARISON: Chest Pa And Lat (2 Views) dated 01/25/2021; Chest Single View dated 02/26/2018 FINDINGS: Portable technique limits examination quality. Extensive bilateral pulmonary opacities have mildly worsened since the comparative study. The heart is mildly enlarged in size. No displaced fractures. IMPRESSION: Mild worsening in lung aeration is seen since comparative study. Follow up CXR 02/07/2021: COMPARISON: Chest Single View dated 01/31/2021; Chest Single View dated 01/29/2021; Chest Single View dated 01/27/2021; Chest Pa And Lat (2 Views) dated 01/25/2021 FINDINGS: Mild to moderate bilateral patchy airspace disease which is similar to 01/31/2021 per The heart size is within normal limits.No acute osseous abnormality. No significant pleural effusions or pneumothorax. IMPRESSION: Bilateral airspace disease which is mild to moderate in severity is similar to 01/31/2021. Physical exam: General: Alert, In no apparent distress, Oriented x3 HEENT: Atraumatic, PERRLA, Mucous membr. moist/pink, EOMI, Sclerae nonicteric Neck: Supple, 2+ carotid pulse no bruit, No LAD, Without JVD or thyroid abnormality Respiratory: Breathing has improved. Overall clear. Down to 7 L per nasal cannula Cardiovascular: Normal sinus rhythm Gastrointestinal: Normal bowel sounds, No tenderness Musculoskeletal: No tenderness Integumentary: No rashes Neurological: Normal gait, Normal speech, Normal strength at 5/5 x4 extr, Normal tone, Normal affect Lymphatics: No axilla or inguinal lymphadenopathy Impression: Acute hypoxic respiratory failure secondary to COVID-19 pneumonia, unvaccinated Acute kidney injury New onset atrial fibrillation Thyroid goiter Hypertension Hyperglycemia with new diabetes mellitus type 2 Leukocytosis Plan: Acute hypoxic respiratory failure secondary to COVID-19 pneumonia, unvaccinated: Patient clinically improved. Now down to 7 L per nasal cannula. Will decrease IV steroid. Continue with vitamin supplementation. Patient was placed on Diflucan and doxycycline yesterday due to leukocytosis. We will continue to monitor CBC, CMP, CRP and ferritin. Continue to wean off oxygen. Maintain sats above 93%. Encourage ambulation, incentive spirometer and proning. Continue with pulmonology recommendation. Continue to pursue long-term acute care facility placement to continue treatment and rehab. Acute kidney injury: Overall improved. Renal function back to baseline. Encourage oral intake. New onset atrial fibrillation: Patient remained stable on metoprolol 50 mg 3 times a day and Eliquis 5 mg 1 pill twice daily. Patient in sinus rhythm. Thyroid goiter: Overall stable. Monitor closely. Hypertension: Patient remains stable on metoprolol 50 mg 1 pill 3 times a day and home medicationlisinopril hydrochlorothiazide daily Hyperglycemia with new diabetes mellitus type 2: Hemoglobin A1c 7.0. Will start Metformin daily. Will provide education on diabetes. Will start sliding scale and Accu-Cheks. IV steroid decreased. Leukocytosis: We will decrease IV steroid. Overall improved. Now on Diflucan and doxycycline. Continue to monitor closely. DVT prophylaxis: Letitia [facility] [id number] minutes: Long-term acute care facility placement CODE STATUS: Full code Time Spent Managing Pts Care (In Minutes): 55
[2021-02-09] MEDS: ASCORBIC ACID 500 MG TABLET PO SCH ×4 (08:40→19:55)
[2021-02-09] MEDS: APIXABAN 5 MG TABLET PO SCH ×2 (08:40→19:55)
[2021-02-09] MEDS: VITAMIN D 1000 UNIT TAB PO SCH (08:40)
[2021-02-09] MEDS: THIAMINE HCL 100 MG TABLET PO SCH (08:40)
[2021-02-09] MEDS: ZINC SULFATE 220 MG CAP PO SCH (08:40)
[2021-02-09] MEDS: DOXYCYCLINE 100 MG CAP PO SCH ×2 (08:40→19:55)
[2021-02-09] MEDS: FLUCONAZOLE 100 MG TAB PO SCH (08:40)
[2021-02-09] MEDS: METOPROLOL TAR 50 MG TAB PO SCH ×3 (08:40→19:55)
[2021-02-09] MEDS: ASPIRIN EC 81 MG TAB PO SCH (08:40)
[2021-02-09] MEDS: ENSURE ENLIVE 237 ML CAN PO SCH ×2 (08:41→19:55)
[2021-02-09 21:37] VITALS: BMI 25.8
[2021-02-10 03:52] LABS: Absolute Lymphocytes (CBC) 1.4 K/uL (0.7-4.9); Basophils % 0.2 % (0-1.3); Hematocrit 39.2 % (36.0-45.0); Lymphocytes % 6.5 % (15.3-44.8); MPV 7.8 fL (7.6-11.3); RBC Red Blood Cell Count 4.42 M/uL (3.86-4.86)
[2021-02-10 04:10] LABS: ALT/SGPT 66 U/L (12-78); AST/SGOT 9 U/L (15-37); Alkaline Phosphatase 65 U/L (45-117); BUN Blood Urea Nitrogen 47 mg/dL (7-18); Bicarbonate 30 mmol/L (21-32); Bilirubin Total 0.6 mg/dL (0.2-1.0); Ferritin 1016.7 ng/mL (8-388); Glucose Level 282 mg/dL (74-106); Magnesium 2.4 mg/dL (1.8-2.4); Protein, Total 6.3 g/dL (6.4-8.2); Sodium Level 140 mmol/L (136-145)
[2021-02-10 04:11] LABS: C-Reactive Protein < 2.90 mg/L (<3.00)
[2021-02-10 04:22] LABS: Blood Morphology Comment NOT SEEN (NOT SEEN); Platelet Estimate ADEQ
--- NOTE | 2021-02-10 06:14 | P.PN ---
Subjective Date of Service: 02/10/21 Primary Care Provider: Out of town Chief Complaint: COVID-19 pneumonia Subjective: Improving Physical Examination - Vital Signs Temperature: 97 F Blood Pressure: 122/78 Pulse: 78 Respirations: 20 Pulse Ox (%): 89 - Studies Medications List Reviewed: Yes Assessment & Plan Discharge Plan: Home Plan to discharge in: 72 Hours Physician Review Additional Text: COVID: Positive, unvaccinated Initial CXR: COMPARISON: Chest Pa And Lat (2 Views) dated 01/25/2021; Chest Single View dated 02/26/2018 FINDINGS: Portable technique limits examination quality. Extensive bilateral pulmonary opacities have mildly worsened since the comparative study. The heart is mildly enlarged in size. No displaced fractures. IMPRESSION: Mild worsening in lung aeration is seen since comparative study. Follow up CXR 02/07/2021: COMPARISON: Chest Single View dated 01/31/2021; Chest Single View dated 01/29/2021; Chest Single View dated 01/27/2021; Chest Pa And Lat (2 Views) dated 01/25/2021 FINDINGS: Mild to moderate bilateral patchy airspace disease which is similar to 01/31/2021 per The heart size is within normal limits.No acute osseous abnormality. No significant pleural effusions or pneumothorax. IMPRESSION: Bilateral airspace disease which is mild to moderate in severity is similar to 01/31/2021. Physical exam: General: Alert, In no apparent distress, Oriented x3 HEENT: Atraumatic, PERRLA, Mucous membr. moist/pink, EOMI, Sclerae nonicteric Neck: Supple, 2+ carotid pulse no bruit, No LAD, Without JVD or thyroid abnormality Respiratory: Breathing has improved. Overall clear. Down to 7 L per nasal cannula Cardiovascular: Normal sinus rhythm Gastrointestinal: Normal bowel sounds, No tenderness Musculoskeletal: No tenderness Integumentary: No rashes Neurological: Normal gait, Normal speech, Normal strength at 5/5 x4 extr, Normal tone, Normal affect Lymphatics: No axilla or inguinal lymphadenopathy Impression: Acute hypoxic respiratory failure secondary to COVID-19 pneumonia, unvaccinated Acute kidney injury New onset atrial fibrillation Thyroid goiter Hypertension Hyperglycemia with new diabetes mellitus type 2 Leukocytosis Plan: Acute hypoxic respiratory failure secondary to COVID-19 pneumonia, unvaccinated: Patient clinically improved. Now down to 7 L per nasal cannula. IV steroid decreased. Continue with vitamin supplementation. Patient was placed on Diflucan and doxycycline 2 days ago due to leukocytosis. Will monitor. We will continue to monitor CBC, CMP, CRP and ferritin. Continue to wean off oxygen. Maintain sats above 93%. Encourage ambulation, incentive spirometer and proning. Continue with pulmonology recommendation. May not need LTAC if she continues to improve. Acute kidney injury: Overall improved. Renal function back to baseline. Encourage oral intake. New onset atrial fibrillation: Patient remained stable on metoprolol 50 mg 3 times a day and Eliquis 5 mg 1 pill twice daily. Patient in sinus rhythm. Thyroid goiter: Overall stable. Monitor closely. Hypertension: Patient remains stable on metoprolol 50 mg 1 pill 3 times a day and home medicationlisinopril hydrochlorothiazide daily Hyperglycemia with new diabetes mellitus type 2: Hemoglobin A1c 7.0. Will start Metformin daily. Will provide education on diabetes. Will start sliding scale and Accu-Cheks. IV steroid decreased. Leukocytosis: IV steroid decreased. Overall improved. Will continue to monitor. Now on Diflucan and doxycycline. Continue to monitor closely. DVT prophylaxis: Letitia [facility] [id number] minutes: Home vs LTAC CODE STATUS: Full code Time Spent Managing Pts Care (In Minutes): 55
[2021-02-10] MEDS: FLUCONAZOLE 100 MG TAB PO SCH (09:46)
[2021-02-10] MEDS: DOXYCYCLINE 100 MG CAP PO SCH ×2 (09:46→19:56)
[2021-02-10] MEDS: ASCORBIC ACID 500 MG TABLET PO SCH ×4 (09:46→19:56)
[2021-02-10] MEDS: ZINC SULFATE 220 MG CAP PO SCH (09:46)
[2021-02-10] MEDS: ASPIRIN EC 81 MG TAB PO SCH (09:46)
[2021-02-10] MEDS: VITAMIN D 1000 UNIT TAB PO SCH (09:46)
[2021-02-10] MEDS: METOPROLOL TAR 50 MG TAB PO SCH ×3 (09:46→19:56)
[2021-02-10] MEDS: APIXABAN 5 MG TABLET PO SCH ×2 (09:46→19:56)
[2021-02-10] MEDS: THIAMINE HCL 100 MG TABLET PO SCH (09:47)
[2021-02-10] MEDS: METFORMIN HCL 500 MG TAB PO SCH (09:47)
[2021-02-10] MEDS: METHYLPREDNISOLONE 40 MG INJ IV SCH ×2 (09:47→19:56)
[2021-02-10] MEDS: ENSURE ENLIVE 237 ML CAN PO SCH ×2 (09:47→19:56)
[2021-02-10] MEDS ORDERED: PANTOPRAZOLE 40 MG INJ IVP ONE (21:44)
[2021-02-10] MEDS ORDERED: SODIUM CHLORIDE 0.9% 10ML INJ IV PRN (21:44)
[2021-02-11] MEDS: BENZONATATE 100 MG CAP PO PRN ×2 (02:31→18:39)
[2021-02-11 03:53] LABS: Absolute Lymphocytes (CBC) 1.3 K/uL (0.7-4.9); Basophils % 0.1 % (0-1.3); Hematocrit 37.5 % (36.0-45.0); Lymphocytes % 7.1 % (15.3-44.8); RBC Red Blood Cell Count 4.23 M/uL (3.86-4.86)
[2021-02-11 04:12] LABS: ALT/SGPT 55 U/L (12-78); AST/SGOT 8 U/L (15-37); Alkaline Phosphatase 59 U/L (45-117); BUN Blood Urea Nitrogen 40 mg/dL (7-18); Bicarbonate 30 mmol/L (21-32); Bilirubin Total 0.9 mg/dL (0.2-1.0); Glucose Level 204 mg/dL (74-106); Magnesium 2.2 mg/dL (1.8-2.4); Potassium 5.1 mmol/L (3.5-5.1); Protein, Total 6.1 g/dL (6.4-8.2); Sodium Level 139 mmol/L (136-145)
[2021-02-11 04:38] LABS: C-Reactive Protein < 2.90 mg/L (<3.00)
[2021-02-11] MEDS ORDERED: MORPHINE 2 MG/ML SYR IV ONE (05:02)
--- NOTE | 2021-02-11 06:17 | P.PN ---
Subjective Date of Service: 02/11/21 Primary Care Provider: Out of town Chief Complaint: COVID-19 pneumonia Subjective: Improving Physical Examination - Vital Signs Temperature: 97.4 F Blood Pressure: 133/90 Pulse: 72 Respirations: 16 Pulse Ox (%): 91 - Studies Medications List Reviewed: Yes Assessment & Plan Discharge Plan: Other (Home versus LTAC) Plan to discharge in: 48 Hours Physician Review Additional Text: COVID: Positive, unvaccinated Initial CXR: COMPARISON: Chest Pa And Lat (2 Views) dated 01/25/2021; Chest Single View dated 02/26/2018 FINDINGS: Portable technique limits examination quality. Extensive bilateral pulmonary opacities have mildly worsened since the comparative study. The heart is mildly enlarged in size. No displaced fractures. IMPRESSION: Mild worsening in lung aeration is seen since comparative study. Follow up CXR 02/11/2021: COMPARISON: February 07, 2021 FINDINGS: Mild worsening diffuse bilateral pulmonary opacities. Development of pneumomediastinum and mild subcutaneous emphysema along the left upper chest and neck IMPRESSION: Mild worsening diffuse bilateral pulmonary opacities likely pneumonia Development of mild pneumomediastinum and mild subcutaneous emphysema Physical exam: General: Alert, In no apparent distress, Oriented x3 HEENT: Atraumatic, PERRLA, Mucous membr. moist/pink, EOMI, Sclerae nonicteric Neck: Supple, 2+ carotid pulse no bruit, No LAD, Without JVD or thyroid abnormality Respiratory: Breathing has improved. Overall clear. Down to 7 L per nasal cannula Cardiovascular: Normal sinus rhythm Gastrointestinal: Normal bowel sounds, No tenderness Musculoskeletal: No tenderness Integumentary: No rashes Neurological: Normal gait, Normal speech, Normal strength at 5/5 x4 extr, Normal tone, Normal affect Lymphatics: No axilla or inguinal lymphadenopathy Impression: Acute hypoxic respiratory failure secondary to COVID-19 pneumonia, unvaccinated Acute kidney injury New onset atrial fibrillation Thyroid goiter Hypertension Hyperglycemia with new diabetes mellitus type 2 Leukocytosis Plan: Acute hypoxic respiratory failure secondary to COVID-19 pneumonia, unvaccinated: Patient remained stable on 7 L per nasal cannula. Continue with IV steroids and supplementation. Patient remains on Diflucan and doxycycline 2 days ago due to leukocytosis. Will monitor. We will continue to monitor CBC, CMP, CRP and ferritin. Continue to wean off oxygen. Maintain sats above 93%. X-ray shows some mild pneumomediastinum and mild subcutaneous emphysema. Will need to monitor this closely. Encourage ambulation, incentive spirometer and proning. Continue with pulmonology recommendation. May not need LTAC if she continues to improve. Will wait on physical therapy to evaluate. Acute kidney injury: Overall improved. Renal function back to baseline. Encourage oral intake. New onset atrial fibrillation: Patient remained stable on metoprolol 50 mg 3 times a day and Eliquis 5 mg 1 pill twice daily. Patient in sinus rhythm. Thyroid goiter: Overall stable. Monitor closely. Hypertension: Patient remains stable on metoprolol 50 mg 1 pill 3 times a day and home medicationlisinopril hydrochlorothiazide daily Hyperglycemia with new diabetes mellitus type 2: Hemoglobin A1c 7.0. Continue Metformin daily. Will provide education on diabetes. Continue sliding scale and Accu-Cheks. IV steroid decreased. Leukocytosis: Overall improved. Will continue to monitor. Now on Diflucan and doxycycline. Continue to monitor closely. DVT prophylaxis: [facility] [id number] minutes: Home vs LTAC CODE STATUS: Full code Time Spent Managing Pts Care (In Minutes): 55
--- NOTE | 2021-02-11 07:31 | RAD REPORT ---
EXAM DESCRIPTION: Michelle Single View02/11/2021 7:09 am CLINICAL HISTORY: Chest pain COMPARISON: February 07, 2021 FINDINGS: Mild worsening diffuse bilateral pulmonary opacities. Development of pneumomediastinum and mild subcutaneous emphysema along the left upper chest and neck IMPRESSION: Mild worsening diffuse bilateral pulmonary opacities likely pneumonia Development of mild pneumomediastinum and mild subcutaneous emphysema
--- NOTE | 2021-02-11 08:30 | EKG ---
Test Date: 2021-02-11 Test Time: 05:19:57 Generator Mechanic: RT Ely MEASUREMENT RESULTS: Intervals: Rate: 80 GA: 108 QRSD: 84 QT: 364 QTc: 419 [place]: P: 55 GA: 108 QRS: 4 T: 5 INTERPRETIVE STATEMENTS: Sinus rhythm with sinus arrhythmia with short GA Moderate voltage criteria for LVH, may be normal variant T wave abnormality, consider anterolateral ischemia Abnormal ECG Compared to ECG 01/29/2021 14:31:00 Short GA interval now present T-wave abnormality now present ST (T wave) deviation no longer present Possible ischemia still present Electronically Signed On 02-11-21 08:29:17 CDT by Edgar Hauser
[2021-02-11] MEDS: VITAMIN D 1000 UNIT TAB PO SCH (09:00)
[2021-02-11] MEDS: ASCORBIC ACID 500 MG TABLET PO SCH ×4 (09:00→20:27)
[2021-02-11] MEDS: THIAMINE HCL 100 MG TABLET PO SCH (10:25)
[2021-02-11] MEDS: ZINC SULFATE 220 MG CAP PO SCH (10:25)
[2021-02-11] MEDS: ASPIRIN EC 81 MG TAB PO SCH (10:25)
[2021-02-11] MEDS: METHYLPREDNISOLONE 40 MG INJ IV SCH ×2 (10:26→20:26)
[2021-02-11] MEDS: DOXYCYCLINE 100 MG CAP PO SCH ×2 (10:26→20:27)
[2021-02-11] MEDS: APIXABAN 5 MG TABLET PO SCH ×2 (10:26→20:27)
[2021-02-11] MEDS: METOPROLOL TAR 50 MG TAB PO SCH ×3 (10:26→20:27)
[2021-02-11] MEDS: ENSURE ENLIVE 237 ML CAN PO SCH (10:27)
[2021-02-11] MEDS: METFORMIN HCL 500 MG TAB PO SCH (10:30)
[2021-02-11] MEDS: FLUCONAZOLE 100 MG TAB PO SCH (10:30)
--- NOTE | 2021-02-11 14:20 | P.PN ---
Subjective Date of Service: 02/11/21 Primary Care Provider: Out of town Chief Complaint: COVID-19 pneumonia Improving/ O2 requirement declining Review of Systems General: Weakness Respiratory: Shortness of Breath Physical Examination - Vital Signs Temperature: 96.9 F Blood Pressure: 106/68 Pulse: 75 Respirations: 32 Pulse Ox (%): 94 - Physical Exam General: Alert, In no apparent distress, Cooperative - Studies Medications List Reviewed: Yes Assessment & Plan - Problems (Diagnosis) (1) COVID-19 Current Visit: Yes Status: Acute Plan: Improving/Down to 7 l of O2 , DC 1-2 days Physician Review: Patient Assessed, Agree with Above Assessment and Plan
[2021-02-11] MEDS ORDERED: FAMOTIDINE 20 MG/2 ML VIAL IV ONE (19:36)
[2021-02-11] MEDS: GLUCERNA SHAKE 237 ML CAN PO SCH (20:27)
[2021-02-11] MEDS: FAMOTIDINE 20 MG TAB PO SCH (20:27)
[2021-02-11] MEDS ORDERED: FAMOTIDINE 20 MG/2 ML VIAL IV SCH (21:00)
[2021-02-12 04:22] LABS: Absolute Lymphocytes (CBC) 1.1 K/uL (0.7-4.9); Hematocrit 35.3 % (36.0-45.0); Lymphocytes % 7.4 % (15.3-44.8); MPV 8.2 fL (7.6-11.3); RBC Red Blood Cell Count 3.97 M/uL (3.86-4.86)
[2021-02-12 04:53] LABS: ALT/SGPT 45 U/L (12-78); AST/SGOT 7 U/L (15-37); Albumin 2.8 g/dL (3.4-5.0); Alkaline Phosphatase 54 U/L (45-117); BUN Blood Urea Nitrogen 41 mg/dL (7-18); Bicarbonate 28 mmol/L (21-32); Bilirubin Total 0.8 mg/dL (0.2-1.0); Ferritin 1056.7 ng/mL (8-388); Glucose Level 196 mg/dL (74-106); Magnesium 2.3 mg/dL (1.8-2.4); Protein, Total 5.8 g/dL (6.4-8.2); Sodium Level 139 mmol/L (136-145)
[2021-02-12 04:55] LABS: C-Reactive Protein < 2.90 mg/L (<3.00)
--- NOTE | 2021-02-12 06:23 | P.PN ---
Subjective Date of Service: 02/12/21 Primary Care Provider: Out of town Chief Complaint: COVID-19 pneumonia Subjective: Improving Physical Examination - Vital Signs Temperature: 97.8 F Blood Pressure: 129/87 Pulse: 71 Respirations: 18 Pulse Ox (%): 94 - Studies Medications List Reviewed: Yes Assessment & Plan Discharge Plan: LTAC Physician Review Additional Text: COVID: Positive, unvaccinated Initial CXR: COMPARISON: Chest Pa And Lat (2 Views) dated 01/25/2021; Chest Single View dated 02/26/2018 FINDINGS: Portable technique limits examination quality. Extensive bilateral pulmonary opacities have mildly worsened since the comparative study. The heart is mildly enlarged in size. No displaced fractures. IMPRESSION: Mild worsening in lung aeration is seen since comparative study. Follow up CXR 02/11/2021: COMPARISON: February 07, 2021 FINDINGS: Mild worsening diffuse bilateral pulmonary opacities. Development of pneumomediastinum and mild subcutaneous emphysema along the left upper chest and neck IMPRESSION: Mild worsening diffuse bilateral pulmonary opacities likely pneumonia Development of mild pneumomediastinum and mild subcutaneous emphysema Physical exam: General: Alert, In no apparent distress, Oriented x3 HEENT: Atraumatic, PERRLA, Mucous membr. moist/pink, EOMI, Sclerae nonicteric Neck: Supple, 2+ carotid pulse no bruit, No LAD, Without JVD or thyroid abnormality Respiratory: Breathing has improved. Overall clear. Down to 7 L per nasal cannula Cardiovascular: Normal sinus rhythm Gastrointestinal: Normal bowel sounds, No tenderness Musculoskeletal: No tenderness Integumentary: No rashes Neurological: Normal gait, Normal speech, Normal strength at 5/5 x4 extr, Normal tone, Normal affect Lymphatics: No axilla or inguinal lymphadenopathy Impression: Acute hypoxic respiratory failure secondary to COVID-19 pneumonia, unvaccinated Acute kidney injury New onset atrial fibrillation Thyroid goiter Hypertension Hyperglycemia with new diabetes mellitus type 2 Leukocytosis Plan: Acute hypoxic respiratory failure secondary to COVID-19 pneumonia, unvaccinated: Patient remained stable on 7 L per nasal cannula. Continue with IV steroids and supplementation. Patient remains on Diflucan and doxycycline 2 days ago due to leukocytosis. Will monitor. We will continue to monitor CBC, CMP, CRP and ferritin. Continue to wean off oxygen. Maintain sats above 93%. X-ray shows some mild pneumomediastinum and mild subcutaneous emphysema. Will need to monitor this closely. Encourage ambulation, incentive spirometer and proning. Continue with pulmonology recommendation. Patient approved for LTAC. Will discharge today. Acute kidney injury: Overall improved. Renal function back to baseline. Encourage oral intake. New onset atrial fibrillation: Patient remained stable on metoprolol 50 mg 3 times a day and Eliquis 5 mg 1 pill twice daily. Patient in sinus rhythm. Thyroid goiter: Overall stable. Monitor closely. Hypertension: Patient remains stable on metoprolol 50 mg 1 pill 3 times a day and home medicationlisinopril hydrochlorothiazide daily Hyperglycemia with new diabetes mellitus type 2: Hemoglobin A1c 7.0. Continue Metformin daily. Will provide education on diabetes. Continue sliding scale and Accu-Cheks. IV steroid decreased. Leukocytosis: Overall improved. Will continue to monitor. Now on Diflucan and doxycycline. Continue to monitor closely. DVT prophylaxis: [facility] [id number] minutes: LTAC CODE STATUS: Full code Time Spent Managing Pts Care (In Minutes): 55
[2021-02-12] MEDS: APIXABAN 5 MG TABLET PO SCH ×2 (08:55→20:08)
[2021-02-12] MEDS: METHYLPREDNISOLONE 40 MG INJ IV SCH ×2 (08:55→20:09)
[2021-02-12] MEDS: THIAMINE HCL 100 MG TABLET PO SCH (08:55)
[2021-02-12] MEDS: GLUCERNA SHAKE 237 ML CAN PO SCH ×2 (08:55→20:12)
[2021-02-12] MEDS: VITAMIN D 1000 UNIT TAB PO SCH (08:55)
[2021-02-12] MEDS: FAMOTIDINE 20 MG TAB PO SCH ×2 (08:55→20:09)
[2021-02-12] MEDS: METFORMIN HCL 500 MG TAB PO SCH (08:55)
[2021-02-12] MEDS: METOPROLOL TAR 50 MG TAB PO SCH ×3 (08:55→20:08)
[2021-02-12] MEDS: ASCORBIC ACID 500 MG TABLET PO SCH ×4 (08:55→20:07)
[2021-02-12] MEDS: DOXYCYCLINE 100 MG CAP PO SCH ×2 (08:55→20:07)
[2021-02-12] MEDS: ZINC SULFATE 220 MG CAP PO SCH (08:55)
[2021-02-12] MEDS: ASPIRIN EC 81 MG TAB PO SCH ×2 (08:56→13:04)
[2021-02-12] MEDS: FLUCONAZOLE 100 MG TAB PO SCH (08:57)
[2021-02-12] MEDS ORDERED: CALCIUM CARBONATE CHEW 500MG TAB PO PRN (12:10)
--- NOTE | 2021-02-12 14:58 | P.DS ---
Admission Date: 01/25/21 Discharge Date: 02/12/21 Primary Care Provider: Out of town Dis[facility] Discharge Condition: GOOD Reason for Admission: COVID-19 pneumonia Consultations: Pulmonary-Dr. Suarez Procedures: COVID: Positive, unvaccinated Initial CXR: COMPARISON: Chest Pa And Lat (2 Views) dated 01/25/2021; Chest Single View dated 02/26/2018 FINDINGS: Portable technique limits examination quality. Extensive bilateral pulmonary opacities have mildly worsened since the comparative study. The heart is mildly enlarged in size. No displaced fractures. IMPRESSION: Mild worsening in lung aeration is seen since comparative study. Follow up CXR 02/11/2021: COMPARISON: February 07, 2021 FINDINGS: Mild worsening diffuse bilateral pulmonary opacities. Development of pneumomediastinum and mild subcutaneous emphysema along the left upper chest and neck IMPRESSION: Mild worsening diffuse bilateral pulmonary opacities likely pneumonia Development of mild pneumomediastinum and mild subcutaneous emphysema Medical problem list: Acute hypoxic respiratory failure secondary to COVID-19 pneumonia with noted mild pneumomediastinum and mild subcutaneous emphysema, unvaccinated Acute kidney injury, resolved New onset atrial fibrillation Thyroid goiter Hypertension Hyperglycemia with new diabetes mellitus type 2 Leukocytosis Brief History of Present Illness: 60-year-old -[place] female with history of carpal tunnel, thyroid goiter, hypertension presents emergency department for shortness of breath. Patient tested positive for Covid on 01/22/2021 with increasing shortness of b reath since then. Patient was evaluated in the emergency department, labs were significant for sodium 135 creatinine 1.32 GFR 49 glucose 130 ferritin 936 C- reactive protein 84.7. Patient 88% on room air. Patient found to have acute respiratory failure with Covid pneumonia. Patient admitted for treatment. Hospital Course: Patient presented with acute hypoxic respiratory failure secondary to COVID pneumonia. Patient unvaccinated. Patient had a prolonged stay. Patient has recovered. Patient evaluated for long-term acute care facility placement to continue rehabilitation. Patient has been accepted. Patient currently on 7 L per nasal cannula. Last chest x-ray showed mild subcutaneous emphysema and pneumomediastinum. Ferritin at one thousand fifty-six. CRP less than 2.9. Patient remains on IV steroids, supplementation. Patient also currently on Diflucan and doxycycline due to leukocytosis which also has improved. At discharge the patient will be transported to long-term acute care facility placement to continue rehabilitation and treatment. Recommend to continue current medications. Encourage ambulation, incentive spirometer and proning. Continue to wean off oxygen. Continue with therapy. Patient also presented with acute renal injury. Renal function back to baseline. Renal function within normal range. This can be monitored closely. Patient also had new onset atrial fibrillation. Patient remained stable at this time. Continue with metoprolol 50 mg 1 pill three times a day and Eliquis 5 mg 1 pill twice daily. Patient with hypertension. As above patient will continue with metoprolol 50 mg 1 pill three times a day. Patient may continue with lisinopril hydrochlorothiazide daily as well. Recommend to maintain blood pressure less than 130/80. Further adjustment can be done by LTAC facility. Patient with hyperglycemia with new diabetes mellitus type 2. Hemoglobin A1c 7.0. Overall stable. At discharge patient will continue with Metformin 500 mg daily. Recommend to maintain blood sugar less than one forty fasting and less than two hundred mils. Further adjustment can be done at the facility. Recommend to recheck hemoglobin A1c every 3 months. Patient with leukocytosis. Currently on Diflucan and doxycycline with continued improvement. This may be related to her Covid infection and IV steroids. This can be monitored closely. Vital Signs/Physical Exam: Temp Pulse Resp BP Pulse Ox 97.8 F 71 18 129/87 94 02/12/21 14:57 02/12/21 14:57 02/12/21 14:57 02/12/21 14:57 02/12/21 14:57 General: Alert, In no apparent distress, Oriented x3, Cooperative HEENT: Atraumatic Neck: Other (Subcu emphysema noted) Respiratory: Clear to auscultation bilaterally, Other (Currently on 7 L per nasal cannula) Cardiovascular: Normal pulses, Regular rate/rhythm Gastrointestinal: Normal bowel sounds Musculoskeletal: No erythema, No tenderness, No warmth Integumentary: No tenderness/swelling, No erythema, No warmth, No cyanosis Neurological: Normal speech, Normal strength at 5/5 x4 extr, Normal tone Laboratory Data at Discharge: WBC 15.00 K/uL (4.3-10.9) H D 02/12/21 03:17 Hgb 11.9 g/dL (12.0-15.0) L 02/12/21 03:17 Hct 35.3 % (36.0-45.0) L 02/12/21 03:17 Plt Count 205 K/uL (152-406) 02/12/21 03:17 PT 12.0 SECONDS (9.5-12.5) 01/25/21 16:37 INR 1.04 01/25/21 16:37 Sodium 139 mmol/L (136-145) 02/12/21 03:17 Potassium 5.0 mmol/L (3.5-5.1) 02/12/21 03:17 BUN 41 mg/dL (7-18) H 02/12/21 03:17 Creatinine 0.64 mg/dL (0.55-1.3) 02/12/21 03:17 Glucose 196 mg/dL (74-106) H 02/12/21 03:17 Magnesium 2.3 mg/dL (1.8-2.4) 02/12/21 03:17 Total Bilirubin 0.8 mg/dL (0.2-1.0) 02/12/21 03:17 AST 7 U/L (15-37) L 02/12/21 03:17 ALT 45 U/L (12-78) 02/12/21 03:17 Alkaline Phosphatase 54 U/L (45-117) 02/12/21 03:17 Triglycerides 93 mg/dL (<150) 01/26/21 05:13 Cholesterol 262 mg/dL (<200) H 01/26/21 05:13 HDL Cholesterol 48 mg/dL (40-60) 01/26/21 05:13 Cholesterol/HDL Ratio 5.46 01/26/21 05:13 Home Medications: Albuterol Inhaler [Ventolin Inhaler*] 1 puff PO Q4HR 01/25/21 Diclofenac Sodium 75 mg PO BID 01/25/21 Lisinopril/Hydrochlorothiazide [Lisinopril-Hctz 10-12.5 mg Tab] 1 tab PO BID 01/25/21 Physician Discharge Instructions: Patient presented with acute hypoxic respiratory failure secondary to COVID pneumonia. Patient unvaccinated. Patient had a prolonged stay. Patient has recovered. Patient evaluated for long-term acute care facility placement to continue rehabilitation. Patient has been accepted. Patient currently on 7 L per nasal cannula. Last chest x-ray showed mild subcutaneous emphysema and pneumomediastinum. Ferritin at one thousand fifty-six. CRP less than 2.9. Patient remains on IV steroids, supplementation. Patient also currently on Diflucan and doxycycline due to leukocytosis which also has improved. At discharge the patient will be transported to long-term acute care facility placement to continue rehabilitation and treatment. Recommend to continue current medications. Encourage ambulation, incentive spirometer and proning. Continue to wean off oxygen. Continue with therapy. Patient also presented with acute renal injury. Renal function back to baseline. Renal function within normal range. This can be monitored closely. Patient also had new onset atrial fibrillation. Patient remained stable at this time. Continue with metoprolol 50 mg 1 pill three times a day and Eliquis 5 mg 1 pill twice daily. Patient with hypertension. As above patient will continue with metoprolol 50 mg 1 pill three times a day. Patient may continue with lisinopril hydrochlorothiazide daily as well. Recommend to maintain blood pressure less than 130/80. Further adjustment can be done by LTAC facility. Patient with hyperglycemia with new diabetes mellitus type 2. Hemoglobin A1c 7.0. Overall stable. At discharge patient will continue with Metformin 500 mg daily. Recommend to maintain blood sugar less than one forty fasting and less than two hundred mils. Further adjustment can be done at the facility. Recommend to recheck hemoglobin A1c every 3 months. Patient with leukocytosis. Currently on Diflucan and doxycycline with continued improvement. This may be related to her Covid infection and IV steroids. This can be monitored closely. Diet: AHA Activity: Ad darling Followup: GEE FLYNN [Primary Care Provider] - Time spent managing pt's care (in minutes): 55
[2021-02-12] MEDS: BENZONATATE 100 MG CAP PO PRN (15:19)
[2021-02-12 18:14] VITALS: TEMP 97.3
[2021-02-12 20:11] VITALS: BP 135/96
[2021-02-12 23:01] VITALS: O2SAT 96
== END 2021-02-12 23:50 | DRG 177 ==
LOC: ER 14:15 → ERHOLD 18:54 → 4TH 01-26 17:46
PROVIDERS: ADMIT Family Medicine; ATTEND Family Medicine
DX: U07.1 COVID-19 (principal); J12.82 Pneumonia due to coronavirus disease 2019; J96.01 Acute respiratory failure with hypoxia; N17.9 Acute kidney failure, unspecified; E44.1 Mild protein-calorie malnutrition; J98.2 Interstitial emphysema; E04.9 Nontoxic goiter, unspecified; I10 Essential (primary) hypertension; E11.65 Type 2 diabetes mellitus with hyperglycemia; D72.829 Elevated white blood cell count, unspecified; E86.0 Dehydration; I48.0 Paroxysmal atrial fibrillation; Z68.25 Body mass index [BMI] 25.0-25.9, adult; Z88.0 Allergy status to penicillin
CPT/HCPCS: 36415; 71045; 71046; 80048; 80053; 80061; 80076; 81003; 81015; 82728; 82947; 83036; 83605; 83735; 83880; 84439; 84443; 84484; 85025; 85610; 86140; 87040; 87086; 87088; 93005; 93306; 94760; 96374; 97110; 97116; 97161; 97530; 99283; C9113; J0360; J1160; J1650; J1940; J2270; J2920; J2930; J7030; J7040; J7050